=== PATIENT | female | born 1975 | race Caucasian/White ===

== ENCOUNTER 2017-01-06 17:22 | Emergency (ER) | payer BC, MEDICAID ==
[~2017-01-06 17:22] MED LIST: traMADol 50 MG Tab PO ONE
[2017-01-06 17:33] VITALS: BP 147/74
[2017-01-06] MEDS ORDERED: Alum Hydrox/Mag Hydrox/Simeth 30 ML, Lidocaine 2% 15 ML PO ONE ×2 (17:37)
[2017-01-06 17:56] LABS: CHLORIDE,CL 104 mEq/L (98-106); SODIUM,NA 141 mEq/L (136-145)
[2017-01-06] MEDS ORDERED: Morphine 2 MG/ML Syringe IVPUSH ONE (18:00)
--- NOTE | 2017-01-06 18:17 | EDM.PDOC ---
ED HPI GI/ABDOMINAL - General Chief Complaint: Abdominal Pain Stated Complaint: ABD PAIN Time Seen by Provider: 01/06/17 17:50 Source of Information: Reports: Patient, Old records History Limitations: Reports: No limitations - History of Present Illness INITIAL COMMENTS - FREE TEXT/NARRATIVE: Patient to ER with history of Ulcerative Colitis including recent flare up 4 weeks ago in which patient was seen by Media Production Support Manager and had flexible sigmoidoscopy and confirmation of diagnosis. She states she was placed on Asacol 800 mg every 8 hours and scheduled for a Colonoscopy later this month. Patient states reoccurance of bloody diarrhea, abdominal cramping past 24 hours despite use of Asacol. She states she has had a stressful day with the of a pet and states pain and diarrhea has been exacerbated with 6 loose bloody stools today. She rates abdominal pain on scale of 8 with cramping and some feelings of bloating in the lower abdominal region. She states she was able to eat ham sandwich this day without vomiting affirms some nausea. She is brought to ER by in for evaluation and treatment. Symptom Onset Date: 01/05/17 Symptom Onset Time: 16:00 Timing/Duration: Reports: Day(s): (2), Waxing/waning Location: other (Diffuse pain and cramping lower pelvic region and epigastric region) Quality: Reports: burning, cramping, fullness Severity: severe Improves with: Reports: other (Drawing legs up) Worsens with: Reports: lying down Context: Denies: sick contact, bad/questionable food, out of country travel, recent surgery, lifting Associated Symptoms (-Female): Reports: diarrhea, bloody stools, nausea/ vomiting Treatments MOTH EXTERMINATOR: Reports: Other medication(s) (Asacol-) - Related Data Allergies/ADRs: Allergies Allergy/AdvReac Type Severity Reaction Status Date / Time ceftriaxone sodium Allergy Severe Difficulty Verified 01/06/17 17:51 [From Rocephin] Breathing milnacipran HCl Allergy Intermediate Hallucinati Verified 01/06/17 17:51 [From Savella] ons ondansetron HCl [From Zofran] Allergy Mild Hives Verified 01/06/17 17:51 acetaminophen Allergy Vomiting Verified 01/06/17 17:51 [From Excedrin Sinus Headache] calcium carbonate [From DHEA] Allergy Anxiety Verified 01/06/17 17:51 calcium phosphate,dibasic Allergy Anxiety Verified 01/06/17 17:51 [From DHEA] metoclopramide HCl Allergy Anxiety Verified 01/06/17 17:51 [From Reglan] phenylephrine HCl Allergy Vomiting Verified 01/06/17 17:51 [From Excedrin Sinus Headache] prasterone (DHEA) [From DHEA] Allergy Anxiety Verified 01/06/17 17:51 prednisone Allergy Other Verified 01/06/17 17:51 prochlorperazine Allergy Anxiety Verified 10/27/16 15:08 [From Compazine] prochlorperazine edisylate Allergy Anxiety Verified 10/27/16 15:08 [From Compazine] prochlorperazine maleate Allergy Anxiety Verified 10/27/16 15:08 [From Compazine] Home Meds: Home Meds ALPRAZolam [Xanax] 0.5 mg PO QID PRN 10/02/13 [History] Omeprazole [Prilosec] 20 mg PO BID 10/02/13 [History] levETIRAcetam [Keppra] 750 mg PO BID 10/02/13 [History] Escitalopram [Lexapro] 30 mg PO DAILY 07/11/14 [History] Estradiol 1 mg PO DAILY 08/18/15 [History] Linaclotide [Linzess] 290 mcg PO DAILY 11/24/15 [History] Acetaminophen [Tylenol] 650 mg PO ASDIRECTED PRN 02/28/16 [History] SUMAtriptan [Imitrex] 1 tab PO ASDIRECTED PRN 04/23/16 [History] ARIPiprazole [Abilify] 5 mg PO DAILY 07/29/16 [History] Zolpidem Tartrate [Ambien] 5 mg PO BEDTIME PRN 10/15/16 [History] Nabumetone [Relafen] 750 mg PO BID 10/27/16 [History] lamoTRIgine [Lamotrigine] 25 mg PO BID 10/27/16 [History] Dicyclomine [Bentyl] 1 cap PO DAILY 01/06/17 [History] Ranitidine HCl [Acid Control] 1 tab PO DAILY 01/06/17 [History] Past Medical History HEENT History: Reports: Allergic rhinitis Cardiovascular History: Reports: None Respiratory History: Reports: Asthma Gastrointestinal History: Reports: Chronic constipation, Inflammatory bowel disease, Other (see below) Other Gastrointestinal History: COLITIS Genitourinary History: Reports: Renal calculus 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 Denies: Suicidal ideation Endocrine/Metabolic History: Reports: Obesity/BMI 30+ Hematologic History: Reports: None Immunologic History: Reports: None Oncologic (Cancer) History: Reports: None Dermatologic History: Reports: None - Past Surgical History Other HEENT Surgeries/Procedures: Sinus surgery, several Musculoskeletal Surgical History: Reports: Joint replacement Social & Family History - Family History Family Medical History: Noncontributory Cardiac: Reports: Hypertension Respiratory: Reports: None GI: Reports: Inflammatory bowel disease, Irritable bowel syndrome : Reports: None OBGYN: Reports: None Musculoskeletal: Reports: Fibromyalgia Neurological: Reports: None Psychiatric: Reports: Depression Endocrine/Metabolic: Reports: Obesity/MBI 30+ Hematologic: Reports: None Immunologic: Reports: None Dermatologic: Reports: None Oncologic: Reports: None - Tobacco Use Smoking Status *Q: Former Smoker Tobacco Use Within Last Twelve Months: No Years of Tobacco use: 21 Packs/Tins Daily: 1 Used Tobacco, but Quit: Yes Month Tobacco Last Used: 4 years ago Second Hand Smoke Exposure: No - Caffeine Use Caffeine Use: Reports: Soda - Alcohol Use Alcohol Use History: No Days Per Week of Alcohol Use: 0 Alcohol Use in Last Twelve Months: No - Recreational Drug Use Recreational Drug Use: No - Living Situation & Occupation Living situation: Reports: , with family Occupation: unemployed ED ROS GENERAL - Review of Systems Review Of Systems: See Below Constitutional: Reports: chills, weakness, fatigue, decreased appetite HEENT: Reports: No symptoms Respiratory: Reports: No Symptoms Cardiovascular: Reports: No symptoms Endocrine: Reports: no symptoms GI/Abdominal: Reports: Abdominal pain, Bloody stool, Diarrhea, Decreased appetite, Distension, Hematochezia, Mucous in stool, Nausea, Vomiting : Reports: incontinence Musculoskeletal: Reports: no symptoms Skin: Reports: no symptoms Neurological: Reports: No Symptoms Psychiatric: Reports: Anxiety, Depression, Mood lability, Other (Sadnees grief from loss of pet) Hematologic/Lymphatic: Reports: no symptoms Immunologic: Reports: no symptoms ED EXAM, GI/ABD - Physical Exam Exam: See Below Exam Limited By: No limitations General Appearance: alert, WD/WN, anxious, mild distress Eyes: bilateral: normal appearance, EOMI Ears: normal external exam, normal canal, hearing grossly normal, normal TMs Nose: normal inspection, normal mucosa, no blood Throat/Mouth: Normal inspection, Normal lips, Normal teeth, Normal gums, Normal oropharynx, Normal voice, No airway compromise. No: Inflammation Head: atraumatic, normocephalic Neck: normal inspection, supple, non-tender, full range of motion Respiratory/Chest: no respiratory distress, lungs clear, normal breath sounds, no accessory muscle use, chest non-tender Cardiovascular: normal peripheral pulses, regular rate, rhythm, no edema, no gallop, no JVD GI/Abdominal: normal bowel sounds, soft, no organomegaly, no distention, no mass , tenderness, distention, guarding. No: rebound, rigidity, hepatomegaly, splenomegaly, hernia, mass (Female) Exam: Deferred Rectal (Female) Exam: Deferred Back Exam: normal inspection, full range of motion Extremities: normal inspection, normal range of motion, non-tender, no pedal edema Neurological: alert, oriented, normal cognition, normal gait, normal reflexes, no motor/sensory deficits ED ABDOMINAL/GI PROCEDURES - Additional/Other Procedure(s) Procedure(s) (Free Text): CT Scan with contrast radiology reports no abnormality noted with exception of fatty liver. Negative for bowel wall thickening or other abnormality. Course - Vital Signs Last Recorded V/S: Last Vital Signs Temp 36.9 C 01/06/17 17:30 Pulse 105 H 01/06/17 17:30 Resp 18 01/06/17 17:30 BP 147/74 H 01/06/17 17:30 Pulse Ox 99 01/06/17 17:30 - Orders/Labs/Meds Orders: Active Orders 24 hr Category Date Time Status Abdomen Pelvis w Cont [CT] Stat Exams 01/06/17 18:23 Taken STOOL CULTURE [MREF] Stat Lab 01/06/17 17:36 Uncollected Lactated Ringers [Ringers, Lactated] 1,000 ml Med 01/06/17 19:30 Active IV ASDIRECTED Medication Orders Lactated Ringer's (Ringers, Lactated) 1,000 mls @ 150 mls/hr IV ASDIRECTED ANDREEA Labs: Laboratory Tests 01/06/17 01/06/17 Range/Units 17:36 17:36 WBC 13.9 H (5.0-10.0) 10^3/uL RBC 3.98 L (4.00-5.50) 10^6/uL Hgb 12.2 (12.0-16.0) g/dL Hct 36.3 L (37.0-47.0) % MCV 91.2 (82.0-94.0) fL MCH 30.7 (27.0-32.0) pg MCHC 33.6 (33.0-38.0) g/dL RDW Coeff of David 12.2 (11.0-15.0) % Plt Count 231 (150-400) 10^3/uL Neut % (Auto) 66.9 (35-85) % Lymph % (Auto) 20.6 (10-55) % [place] % (Auto) 8.7 (0-16) % Eos % (Auto) 3.1 (0-5) % Baso % (Auto) 0.7 (0-3) % Neut # (Auto) 9.31 H (1.80-7.00) 10^3/uL Lymph # (Auto) 2.87 (1.00-4.80) 10^3/uL [place] # (Auto) 1.21 H (0.00-0.80) 10^3/uL Eos # (Auto) 0.43 (0.00-0.45) 10^3/uL Baso # (Auto) 0.10 10^3/uL Sodium 141 (136-145) mEq/L Potassium 3.7 (3.5-5.0) mEq/L Chloride 104 (98-106) mEq/L Carbon Dioxide 26 (21-32) mmol/L BUN 9 (7-18) mg/dL Creatinine 0.7 (0.6-1.0) mg/dL Est Cr Clr Drug Dosing 88.37 mL/min Estimated GFR (MDRD) > 60 (>=60) mL/min Glucose 125 H (75-99) mg/dL Calcium 8.7 (8.4-10.1) mg/dL Total Bilirubin 0.1 (0.0-1.0) mg/dL AST 48 H (15-37) U/L ALT 66 (12-78) U/L Alkaline Phosphatase 96 (46-116) U/L C-Reactive Protein < 0.2 L (0.2-0.8) mg/dL Total Protein 6.8 (6.4-8.2) g/dL Albumin 3.4 (3.4-5.0) g/dL Meds: Medications Generic Name Dose Route Start Last Admin Trade Name Freq PRN Reason Stop Dose Admin Lactated Ringer's 1,000 mls @ 150 mls/hr 01/06/17 19:30 Ringers, Lactated IV ASDIRECTED ANDREEA Discontinued Medications Generic Name Dose Route Start Last Admin Trade Name Freq PRN Reason Stop Dose Admin Al Hydroxide/Mg Hydroxide 30 0 ml 01/06/17 17:37 01/06/17 17:46 ml/ Lidocaine HCl 15 ml PO 01/06/17 17:38 45 ml ONETIME ONE Administration Hyoscyamine 0.125 mg 01/06/17 18:40 01/06/17 19:03 Hyomax-Sl SL 01/06/17 18:41 0.125 mg ONETIME ONE Administration Morphine Sulfate 2 mg 01/06/17 18:00 01/06/17 18:08 Morphine IVPUSH 01/06/17 18:01 2 mg ONETIME ONE Administration Departure - Departure Time of Disposition: 19:33 Disposition: Home, Self-Care 01 Condition: fair Clinical Impression: Gastroenteritis, Abdominal pain, Diarrhea, Chronic abdominal pain Instructions: Abdominal Pain, Adult, [id number], Pain Medicine Instructions, [id number] Forms: ED Department Discharge Additional Instructions: Clear Liquids and advance diet as tolerated. Fluids and hydration. Obtain stool for culture and return to laboratory. Tramadol 50 mg po every 8 ours prn pain. F/U with PCP or Gastroenterolgy as scheduled. MLP Sign Off - Signature Requirements MLP Sign Off: No - Problem List Review Problem List Initiated/Reviewed/Updated: Yes - My Orders Last 24 Hours: My Active Orders 01/06/17 17:36 STOOL CULTURE [MREF] Stat 01/06/17 18:23 Abdomen Pelvis w Cont [CT] Stat 01/06/17 19:30 Lactated Ringers [Ringers, Lactated] 1,000 ml IV ASDIRECTED - Assessment/Plan Last 24 Hours: My Active Orders 01/06/17 17:36 STOOL CULTURE [MREF] Stat 01/06/17 18:23 Abdomen Pelvis w Cont [CT] Stat 01/06/17 19:30 Lactated Ringers [Ringers, Lactated] 1,000 ml IV ASDIRECTED Assessment:: Gastroenteritis History of Ulcerative Colitis Bloody Stools Abdominal Pain Plan: Discharge to home. Clear liquids and advance diet as tolerated. Tramadol 50 mg every 8 hours prn pain. Continue Asacol 800 mg TID at home per gastroenterology. F/U with PCP and Gastroenterolgy as instructed and scheduled.
[2017-01-06] MEDS ORDERED: Hyoscyamine 0.125 MG Tab.SL SL ONE (18:40)
[2017-01-06] MEDS ORDERED: Take Home: traMADol 50 MG, 4 Tab Pack PO ONE (19:30)
[2017-01-06] MEDS ORDERED: Lactated Ringers 1,000 ML IV SCH (19:30)
== END 2017-01-06 19:58 | disposition home or self-care (01) ==
LOC: CC.ED 17:22
DX: K52.9 Noninfective gastroenteritis and colitis, unspecified (principal); J45.909 Unspecified asthma, uncomplicated; F41.9 Anxiety disorder, unspecified; F32.9 Major depressive disorder, single episode, unspecified; E66.9 Obesity, unspecified; Z87.891 Personal history of nicotine dependence; Z88.1 Allergy status to other antibiotic agents; Z88.8 Allergy status to other drugs, medicaments and biological substances; Z79.899 Other long term (current) drug therapy
CPT/HCPCS: 36415; 74177; 80053; 85025; 86140; 96374; 99284; A9270; J2270; Q9967

== ENCOUNTER 2017-01-11 18:54 | Emergency (ER) | payer BC, MEDICAID ==
[2017-01-11] MEDS ORDERED: Promethazine 25 MG/ML SDV IM STA (19:07)
[2017-01-11] MEDS ORDERED: HYDROmorphone 1 MG/ML Syringe IM ONE (19:07)
--- NOTE | 2017-01-11 19:12 | EDM.PDOC ---
ED HPI HEADACHE COMPLAINT - General Chief Complaint: Headache Stated Complaint: migraine Time Seen by Provider: 01/11/17 18:58 Source of Information: Reports: Patient History Limitations: Reports: No limitations - History of Present Illness INITIAL COMMENTS - FREE TEXT/NARRATIVE: This patient is a well known patient to ER. Patient reports migraine. She reports right buddhism headache with photophobia and phonophobia. Typical of her headache. Tried Imitrex today, did work this morning, but not again this afternoon. She reports nausea. No unialteral weaknesses or neuro deficits. Stable. Symptom Onset Date: 01/11/17 Timing/Duration: Reports: day(s): (1) Location: Reports: temporal, right Quality: Reports: pounding Severity: Reports: moderate Associated Symptoms: Reports: photophobia - Related Data Allergies/ADRs: Allergies Allergy/AdvReac Type Severity Reaction Status Date / Time ceftriaxone sodium Allergy Severe Difficulty Verified 01/12/17 14:42 [From Rocephin] Breathing milnacipran HCl Allergy Intermediate Hallucinati Verified 01/12/17 14:42 [From Savella] ons ondansetron HCl [From Zofran] Allergy Mild Hives Verified 01/12/17 14:42 acetaminophen Allergy Vomiting Verified 01/12/17 14:42 [From Excedrin Sinus Headache] calcium carbonate [From DHEA] Allergy Anxiety Verified 01/12/17 14:42 calcium phosphate,dibasic Allergy Anxiety Verified 01/12/17 14:42 [From DHEA] metoclopramide HCl Allergy Anxiety Verified 01/12/17 14:42 [From Reglan] phenylephrine HCl Allergy Vomiting Verified 01/12/17 14:42 [From Excedrin Sinus Headache] prasterone (DHEA) [From DHEA] Allergy Anxiety Verified 01/12/17 14:42 prednisone Allergy Other Verified 01/12/17 14:42 prochlorperazine Allergy Anxiety Verified 01/12/17 14:42 [From Compazine] prochlorperazine edisylate Allergy Anxiety Verified 01/12/17 14:42 [From Compazine] prochlorperazine maleate Allergy Anxiety Verified 01/12/17 14:42 [From Compazine] Home Meds: Home Meds ALPRAZolam [Xanax] 0.5 mg PO QID PRN 10/02/13 [History] Omeprazole [Prilosec] 20 mg PO BID 10/02/13 [History] levETIRAcetam [Keppra] 750 mg PO BID 10/02/13 [History] Escitalopram [Lexapro] 30 mg PO DAILY 07/11/14 [History] Estradiol 1 mg PO DAILY 08/18/15 [History] Linaclotide [Linzess] 290 mcg PO DAILY 11/24/15 [History] Acetaminophen [Tylenol] 650 mg PO ASDIRECTED PRN 02/28/16 [History] SUMAtriptan [Imitrex] 1 tab PO ASDIRECTED PRN 04/23/16 [History] ARIPiprazole [Abilify] 5 mg PO DAILY 07/29/16 [History] Zolpidem Tartrate [Ambien] 5 mg PO BEDTIME PRN 10/15/16 [History] Nabumetone [Relafen] 750 mg PO BID 10/27/16 [History] lamoTRIgine [Lamotrigine] 25 mg PO BID 10/27/16 [History] Dicyclomine [Bentyl] 1 cap PO DAILY 01/06/17 [History] Ranitidine HCl [Acid Control] 1 tab PO DAILY 01/06/17 [History] Past Medical History HEENT History: Reports: Allergic rhinitis Cardiovascular History: Reports: None Respiratory History: Reports: Asthma Gastrointestinal History: Reports: Chronic constipation, Inflammatory bowel disease, Other (see below) Other Gastrointestinal History: COLITIS Genitourinary History: Reports: Renal calculus 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 Denies: Suicidal ideation Endocrine/Metabolic History: Reports: Obesity/BMI 30+ Hematologic History: Reports: None Immunologic History: Reports: None Oncologic (Cancer) History: Reports: None Dermatologic History: Reports: None - Past Surgical History Other HEENT Surgeries/Procedures: Sinus surgery, several Musculoskeletal Surgical History: Reports: Joint replacement Social & Family History - Family History Family Medical History: Noncontributory Cardiac: Reports: Hypertension Respiratory: Reports: None GI: Reports: Inflammatory bowel disease, Irritable bowel syndrome : Reports: None OBGYN: Reports: None Musculoskeletal: Reports: Fibromyalgia Neurological: Reports: None Psychiatric: Reports: Depression Endocrine/Metabolic: Reports: Obesity/MBI 30+ Hematologic: Reports: None Immunologic: Reports: None Dermatologic: Reports: None Oncologic: Reports: None - Tobacco Use Smoking Status *Q: Former Smoker Years of Tobacco use: 21 Packs/Tins Daily: 1 Used Tobacco, but Quit: Yes Month Tobacco Last Used: 4 years ago Second Hand Smoke Exposure: No - Caffeine Use Caffeine Use: Reports: Soda - Alcohol Use Days Per Week of Alcohol Use: 0 - Recreational Drug Use Recreational Drug Use: No - Living Situation & Occupation Living situation: Reports: , with family Occupation: unemployed ED ROS GENERAL - Review of Systems Review Of Systems: See Below Constitutional: Reports: no symptoms HEENT: Reports: Other (photophobia and phonophobia. ) Respiratory: Reports: No Symptoms Cardiovascular: Reports: No symptoms Endocrine: Reports: no symptoms GI/Abdominal: Reports: Nausea : Reports: no symptoms Musculoskeletal: Reports: no symptoms Skin: Reports: no symptoms Neurological: Reports: Headache Psychiatric: Reports: No symptoms Hematologic/Lymphatic: Reports: no symptoms Immunologic: Reports: no symptoms - Physical Exam Exam: See Below Exam Limited By: No limitations General Appearance: alert, WD/WN, no apparent distress Eye Exam: bilateral eye: EOMI, normal inspection, PERRL Ears: normal external exam, hearing grossly normal, normal TMs Nose: normal inspection, normal mucosa, no blood Throat/Mouth: Normal inspection, Normal lips, Normal teeth, Normal gums, Normal oropharynx, Normal voice, No airway compromise Head Exam: atraumatic, normocephalic Neck: normal inspection, supple, non-tender, full range of motion Respiratory/Chest: no respiratory distress, lungs clear, normal breath sounds, no accessory muscle use Cardiovascular: normal peripheral pulses, regular rate, rhythm, no edema, no gallop, no JVD, no murmur, no rub GI/Abdominal: normal bowel sounds, soft, non tender Neuro Exam (Abbreviated): alert, oriented, CN II-XII intact, normal gait, no motor/sensory deficits Back Exam: normal inspection, full range of motion Extremities: normal inspection, normal range of motion, non-tender, no pedal edema, normal capillary refill Psychiatric: normal affect, normal mood Skin Exam: Warm, Dry, Intact, Normal color, No rash Course - Vital Signs Last Recorded V/S: Last Vital Signs Temp 98.6 F 01/11/17 18:55 Pulse 96 01/11/17 18:55 Resp 18 01/11/17 18:55 BP 130/50 L 01/11/17 19:20 Pulse Ox 96 01/11/17 18:55 - Orders/Labs/Meds Meds: Medications Discontinued Medications Generic Name Dose Route Start Last Admin Trade Name Tanmay PRN Reason Stop Dose Admin Hydromorphone HCl 1 mg 01/11/17 19:07 01/11/17 19:17 Dilaudid IM 01/11/17 19:08 1 mg ONETIME ONE Administration Promethazine HCl 25 mg 01/11/17 19:07 01/11/17 19:16 Phenergan IM 01/11/17 19:08 25 mg NOW STA Administration Departure - Departure Time of Disposition: 19:11 Disposition: Home, Self-Care 01 Condition: good Clinical Impression: Migraine Instructions: General Headache Without Cause, [id number] Referrals: Provider,Unknown [Ordering Only Provider] - Forms: ED Department Discharge Additional Instructions: Followup with your primary care provider Return to the ER for worsening of condition or any emergent concerns Increase fluids Go home to a quite, dark, cool room and rest - Assessment/Plan Plan: PLEASE SEE RN NOTE FOR PFSH.
[2017-01-11 19:20] VITALS: BP 130/50
== END 2017-01-11 19:24 | disposition home or self-care (01) ==
LOC: CC.ED 18:54
DX: G43.909 Migraine, unspecified, not intractable, without status migrainosus (principal); J45.909 Unspecified asthma, uncomplicated; M06.9 Rheumatoid arthritis, unspecified; F41.9 Anxiety disorder, unspecified; F32.9 Major depressive disorder, single episode, unspecified; E66.9 Obesity, unspecified; Z79.899 Other long term (current) drug therapy; Z87.891 Personal history of nicotine dependence; Z88.6 Allergy status to analgesic agent; Z88.1 Allergy status to other antibiotic agents
CPT/HCPCS: 96372; 99282; J1170; J2550

== ENCOUNTER 2017-01-12 14:40 | Emergency (ER) | payer SELFPAY ==
[2017-01-12 14:49] VITALS: BP 148/107
[2017-01-12] MEDS ORDERED: Ketorolac 60 MG/2 ML SDV IM ONE (14:53)
[2017-01-12] MEDS ORDERED: diphenhydrAMINE 50 MG/ML SDV IM ONE (14:54)
[2017-01-12] MEDS ORDERED: Promethazine 25 MG/ML SDV IM STA (14:54)
--- NOTE | 2017-01-12 14:56 | EDM.PDOC ---
ED HPI HEADACHE COMPLAINT - General Chief Complaint: Headache Stated Complaint: HEADACHE, RASH Time Seen by Provider: 01/12/17 14:40 Source of Information: Reports: Patient History Limitations: Reports: No limitations - History of Present Illness INITIAL COMMENTS - FREE TEXT/NARRATIVE: This patient is very well known to the ER. Patient was seen yesterday for same complaint of migraine. She reports after leaving here yesterday she was pain free. She reports being pain free until about 2 hours ago. Patient reports her migraine returned with photphobia and phonophobia. Denies vomiting. Reports nausea. Stable. Timing/Duration: Reports: hour(s): (2) Location: Reports: generalized Severity: Reports: mild Associated Symptoms: Reports: photophobia. Denies: hyperacusis, dizziness - Related Data Allergies/ADRs: Allergies Allergy/AdvReac Type Severity Reaction Status Date / Time ceftriaxone sodium Allergy Severe Difficulty Verified 01/12/17 14:42 [From Rocephin] Breathing milnacipran HCl Allergy Intermediate Hallucinati Verified 01/12/17 14:42 [From Savella] ons ondansetron HCl [From Zofran] Allergy Mild Hives Verified 01/12/17 14:42 acetaminophen Allergy Vomiting Verified 01/12/17 14:42 [From Excedrin Sinus Headache] calcium carbonate [From DHEA] Allergy Anxiety Verified 01/12/17 14:42 calcium phosphate,dibasic Allergy Anxiety Verified 01/12/17 14:42 [From DHEA] metoclopramide HCl Allergy Anxiety Verified 01/12/17 14:42 [From Reglan] phenylephrine HCl Allergy Vomiting Verified 01/12/17 14:42 [From Excedrin Sinus Headache] prasterone (DHEA) [From DHEA] Allergy Anxiety Verified 01/12/17 14:42 prednisone Allergy Other Verified 01/12/17 14:42 prochlorperazine Allergy Anxiety Verified 01/12/17 14:42 [From Compazine] prochlorperazine edisylate Allergy Anxiety Verified 01/12/17 14:42 [From Compazine] prochlorperazine maleate Allergy Anxiety Verified 01/12/17 14:42 [From Compazine] Home Meds: Home Meds ALPRAZolam [Xanax] 0.5 mg PO QID PRN 10/02/13 [History] Omeprazole [Prilosec] 20 mg PO BID 10/02/13 [History] levETIRAcetam [Keppra] 750 mg PO BID 10/02/13 [History] Escitalopram [Lexapro] 30 mg PO DAILY 07/11/14 [History] Estradiol 1 mg PO DAILY 08/18/15 [History] Linaclotide [Linzess] 290 mcg PO DAILY 11/24/15 [History] Acetaminophen [Tylenol] 650 mg PO ASDIRECTED PRN 02/28/16 [History] SUMAtriptan [Imitrex] 1 tab PO ASDIRECTED PRN 04/23/16 [History] ARIPiprazole [Abilify] 5 mg PO DAILY 07/29/16 [History] Zolpidem Tartrate [Ambien] 5 mg PO BEDTIME PRN 10/15/16 [History] Nabumetone [Relafen] 750 mg PO BID 10/27/16 [History] lamoTRIgine [Lamotrigine] 25 mg PO BID 10/27/16 [History] Dicyclomine [Bentyl] 1 cap PO DAILY 01/06/17 [History] Ranitidine HCl [Acid Control] 1 tab PO DAILY 01/06/17 [History] Past Medical History HEENT History: Reports: Allergic rhinitis Cardiovascular History: Reports: None Respiratory History: Reports: Asthma Gastrointestinal History: Reports: Chronic constipation, Inflammatory bowel disease, Other (see below) Other Gastrointestinal History: COLITIS Genitourinary History: Reports: Renal calculus 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 Denies: Suicidal ideation Endocrine/Metabolic History: Reports: Obesity/BMI 30+ Hematologic History: Reports: None Immunologic History: Reports: None Oncologic (Cancer) History: Reports: None Dermatologic History: Reports: None - Past Surgical History Other HEENT Surgeries/Procedures: Sinus surgery, several Musculoskeletal Surgical History: Reports: Joint replacement Social & Family History - Family History Family Medical History: Noncontributory Cardiac: Reports: Hypertension Respiratory: Reports: None GI: Reports: Inflammatory bowel disease, Irritable bowel syndrome : Reports: None OBGYN: Reports: None Musculoskeletal: Reports: Fibromyalgia Neurological: Reports: None Psychiatric: Reports: Depression Endocrine/Metabolic: Reports: Obesity/MBI 30+ Hematologic: Reports: None Immunologic: Reports: None Dermatologic: Reports: None Oncologic: Reports: None - Tobacco Use Smoking Status *Q: Former Smoker Years of Tobacco use: 20 Packs/Tins Daily: 1 Used Tobacco, but Quit: Yes Month Tobacco Last Used: 4 years ago Second Hand Smoke Exposure: No - Caffeine Use Caffeine Use: Reports: Soda - Alcohol Use Days Per Week of Alcohol Use: 0 - Recreational Drug Use Recreational Drug Use: No - Living Situation & Occupation Living situation: Reports: , with family Occupation: unemployed ED ROS GENERAL - Review of Systems Review Of Systems: See Below Constitutional: Reports: no symptoms HEENT: Reports: Other (photophobia, phonophobia.) Respiratory: Reports: No Symptoms Cardiovascular: Reports: No symptoms Endocrine: Reports: no symptoms GI/Abdominal: Reports: Nausea : Reports: no symptoms Musculoskeletal: Reports: no symptoms Skin: Reports: rash (left posterior auricle.) Neurological: Reports: Headache Psychiatric: Reports: No symptoms Hematologic/Lymphatic: Reports: no symptoms Immunologic: Reports: no symptoms - Physical Exam Exam: See Below Exam Limited By: No limitations General Appearance: alert, WD/WN, no apparent distress Eye Exam: bilateral eye: EOMI, normal inspection, PERRL Ears: normal external exam, normal canal, hearing grossly normal, normal TMs Nose: normal inspection, normal mucosa, no blood Throat/Mouth: Normal inspection, Normal lips, Normal teeth, Normal gums, Normal oropharynx, Normal voice, No airway compromise Head Exam: atraumatic, normocephalic Neck: normal inspection, supple, non-tender, full range of motion Respiratory/Chest: no respiratory distress, lungs clear, normal breath sounds, no accessory muscle use Cardiovascular: normal peripheral pulses, regular rate, rhythm, no edema, no gallop, no JVD, no murmur, no rub GI/Abdominal: soft, non tender Neuro Exam (Abbreviated): alert, oriented, normal cognition, normal gait, no motor/sensory deficits Back Exam: normal inspection, full range of motion Extremities: normal inspection, normal range of motion, non-tender, no pedal edema, normal capillary refill Psychiatric: normal affect, normal mood Skin Exam: Warm, Dry, Intact, Normal color, Rash (contact dermatitis right postaurical region. ) Course - Vital Signs Last Recorded V/S: Last Vital Signs Temp 98.0 F 01/12/17 14:46 Pulse 98 01/12/17 14:46 Resp 16 01/12/17 14:46 BP 148/107 H 01/12/17 14:46 Pulse Ox 94 L 01/12/17 14:46 - Orders/Labs/Meds Meds: Medications Discontinued Medications Generic Name Dose Route Start Last Admin Trade Name Tanmay PRN Reason Stop Dose Admin Diphenhydramine HCl 25 mg 01/12/17 14:54 01/12/17 15:11 Benadryl IM 01/12/17 14:55 25 mg ONETIME ONE Administration Hydromorphone HCl 1 mg 01/12/17 15:04 01/12/17 15:16 Dilaudid IM 01/12/17 15:05 1 mg ONETIME ONE Administration Ketorolac Tromethamine 60 mg 01/12/17 14:53 01/12/17 15:10 Toradol IM 01/12/17 14:54 Not Given ONETIME ONE Promethazine HCl 25 mg 01/12/17 14:54 01/12/17 15:07 Phenergan IM 01/12/17 14:55 25 mg NOW STA Administration Departure - Departure Time of Disposition: 14:55 Disposition: Home, Self-Care 01 Condition: good Clinical Impression: Migraine Referrals: PCP,None [Primary Care Provider] - Forms: ED Department Discharge Additional Instructions: Followup with primary care provider Return to the ER for Emergencies Go home to a quiet, dark, cool room and rest. - Assessment/Plan Plan: PLEASE SEE RN NOTE FOR PFSH.
[2017-01-12] MEDS ORDERED: HYDROmorphone 1 MG/ML Syringe IM ONE (15:04)
== END 2017-01-12 15:20 | disposition home or self-care (01) ==
LOC: CC.ED 14:40
DX: G43.909 Migraine, unspecified, not intractable, without status migrainosus (principal); J45.909 Unspecified asthma, uncomplicated; M06.9 Rheumatoid arthritis, unspecified; Z87.891 Personal history of nicotine dependence; Z88.8 Allergy status to other drugs, medicaments and biological substances; Z79.899 Other long term (current) drug therapy
CPT/HCPCS: 96372; 99283; J1170; J1200; J2550

== ENCOUNTER 2017-01-18 13:48 | Emergency (ER) | payer SELFPAY ==
[2017-01-18 13:58] VITALS: BP 152/90
[2017-01-18] MEDS ORDERED: diphenhydrAMINE 50 MG/ML SDV IM ONE (14:16)
[2017-01-18] MEDS ORDERED: HYDROmorphone 1 MG/ML Syringe IM ONE (14:16)
[2017-01-18] MEDS ORDERED: Ketorolac 60 MG/2 ML SDV IM ONE (14:16)
[2017-01-18] MEDS ORDERED: Promethazine 25 MG/ML SDV IM ONE (14:18)
--- NOTE | 2017-01-18 14:23 | EDM.PDOC ---
ED HPI HEADACHE COMPLAINT - General Chief Complaint: Headache Stated Complaint: headache Time Seen by Provider: 01/18/17 14:07 Source of Information: Reports: Patient History Limitations: Reports: No limitations - History of Present Illness INITIAL COMMENTS - FREE TEXT/NARRATIVE: History and physical: History of present illness: [pt comes to the ER complaining of a migraine headache to her left scientologist. She complains of a history of migraines, usually to her R scientologist. Began last evening at 6 p.m. Improved with Imitrex, but didn't completely resolve. Repeated Imitrex this morning, which did not resolve her symptoms. These symptoms are typical for her when she has a migraine. No new or different symptoms. She denies LOC or fainting. No weakness, chest pain, SOA or dyspnea. She has had some blurred vision with her headache, which is not atypical for her. Has had some mild nausea, but no vomiting. Took 1 tablet of Benadryl this morning. She was in the ER last weekend on both Friday and Friday for migraine TINAJERO. Resolved completely after medications on Friday. She saw her PCP in [place] yesterday and was started on propranolol for mildly elevated BP. She has no other complaints or concerns at this time. ] Review of Systems: As per history of present illness and below otherwise all systems reviewed and negative. Past medical history: As per history of present illness and as reviewed below otherwise noncontributory. Surgical history: As per history of present illness and is reviewed below other cardona noncontributory. Social history: No reported history of drug or alcohol abuse. Family history: As per history of present illness and is reviewed below otherwise noncontributory. Physical exam: HEENT: Atraumatic, normocephalic. PERRLA. EOMI. no nystagmus. mucous membranes moist, throat clear, neck supple, no lymphadenopathy. trachea midline. Lungs: Clear to auscultation, breath sounds equal bilaterally no wheezing crackles or rales. Heart: S1-S2, regular rate and rhythm. Abdomen: Soft, nondistended, nontender. Negative for costovertebral tenderness. Pelvis: Stable, nontender. Genitourinary: Deferred. Rectal: Deferred. Extremities: atraumatic, no cyanosis or edema to feet or lower legs. Neuro: Awake, alert, oriented. head field nurse case manager strength is strong bilaterally.no unilateral weakness. Cranial nerves II through XII unremarkable. Motor and sensory unremarkable throughout. Exam nonfocal. Therapeutics: [Dilaudid 1 mg IM, Benadryl 25 mg IM, Phenergan 25 mg IM] Impression: [Migraine headache] Plan: [Patient refuses Toradol injection today. will slate picker from the ER today so Dilaudid Benadryl and Phenergan given IM. She is to rest in a cool dark room for the rest of today. Strict return precautions are given to patient. She is in agreement with today's plan. ] Definitive disposition and diagnosis is appropriate pending reevaluation and review of above. - Related Data Allergies/ADRs: Allergies Allergy/AdvReac Type Severity Reaction Status Date / Time ceftriaxone sodium Allergy Severe Difficulty Verified 01/18/17 13:57 [From Rocephin] Breathing milnacipran HCl Allergy Intermediate Hallucinati Verified 01/18/17 13:57 [From Savella] ons ondansetron HCl [From Zofran] Allergy Mild Hives Verified 01/18/17 13:57 acetaminophen Allergy Vomiting Verified 01/18/17 13:57 [From Excedrin Sinus Headache] calcium carbonate [From DHEA] Allergy Anxiety Verified 01/18/17 13:57 calcium phosphate,dibasic Allergy Anxiety Verified 01/18/17 13:57 [From DHEA] metoclopramide HCl Allergy Anxiety Verified 01/18/17 13:57 [From Reglan] phenylephrine HCl Allergy Vomiting Verified 01/18/17 13:57 [From Excedrin Sinus Headache] prasterone (DHEA) [From DHEA] Allergy Anxiety Verified 01/18/17 13:57 prednisone Allergy Other Verified 01/18/17 13:57 prochlorperazine Allergy Anxiety Verified 01/18/17 13:57 [From Compazine] prochlorperazine edisylate Allergy Anxiety Verified 01/18/17 13:57 [From Compazine] prochlorperazine maleate Allergy Anxiety Verified 01/18/17 13:57 [From Compazine] Home Meds: Home Meds ALPRAZolam [Xanax] 0.5 mg PO QID PRN 10/02/13 [History] Omeprazole [Prilosec] 20 mg PO BID 10/02/13 [History] levETIRAcetam [Keppra] 750 mg PO BID 10/02/13 [History] Escitalopram [Lexapro] 30 mg PO DAILY 07/11/14 [History] Estradiol 1 mg PO DAILY 08/18/15 [History] Linaclotide [Linzess] 290 mcg PO DAILY 11/24/15 [History] Acetaminophen [Tylenol] 650 mg PO ASDIRECTED PRN 02/28/16 [History] SUMAtriptan [Imitrex] 1 tab PO ASDIRECTED PRN 04/23/16 [History] ARIPiprazole [Abilify] 5 mg PO DAILY 07/29/16 [History] Zolpidem Tartrate [Ambien] 5 mg PO BEDTIME PRN 10/15/16 [History] Nabumetone [Relafen] 750 mg PO BID 10/27/16 [History] lamoTRIgine [Lamotrigine] 25 mg PO BID 10/27/16 [History] Dicyclomine [Bentyl] 1 cap PO DAILY 01/06/17 [History] Ranitidine HCl [Acid Control] 1 tab PO DAILY 01/06/17 [History] Azithromycin [Zithromax] 250 mg PO DAILY 01/18/17 [History] Propranolol [Inderal] 20 mg PO DAILY 01/18/17 [History] Past Medical History HEENT History: Reports: Allergic rhinitis Cardiovascular History: Reports: None Respiratory History: Reports: Asthma Gastrointestinal History: Reports: Chronic constipation, Inflammatory bowel disease, Other (see below) Other Gastrointestinal History: COLITIS Genitourinary History: Reports: Renal calculus 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: 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 Musculoskeletal History: Reports: Fibromyalgia, RA Neurological History: Reports: Migraines, Seizure Psychiatric History: Reports: Anxiety, Depression Endocrine/Metabolic History: Reports: Obesity/BMI 30+ Hematologic History: Reports: None Immunologic History: Reports: None Oncologic (Cancer) History: Reports: None Dermatologic History: Reports: None - Infectious Disease History Infectious Disease History: Reports: MRSA - Past Surgical History Other HEENT Surgeries/Procedures: Sinus surgery, several Musculoskeletal Surgical History: Reports: Joint replacement Social & Family History - Family History Family Medical History: Noncontributory Cardiac: Reports: Hypertension Respiratory: Reports: None GI: Reports: Inflammatory bowel disease, Irritable bowel syndrome : Reports: None OBGYN: Reports: None Musculoskeletal: Reports: Fibromyalgia Neurological: Reports: None Psychiatric: Reports: Depression Endocrine/Metabolic: Reports: Obesity/MBI 30+ Hematologic: Reports: None Immunologic: Reports: None Dermatologic: Reports: None Oncologic: Reports: None - Tobacco Use Smoking Status *Q: Former Smoker Years of Tobacco use: 20 Packs/Tins Daily: 1 Used Tobacco, but Quit: Yes Month Tobacco Last Used: 02/2012 Second Hand Smoke Exposure: No - Caffeine Use Caffeine Use: Reports: Soda - Alcohol Use Days Per Week of Alcohol Use: 0 - Recreational Drug Use Recreational Drug Use: No - Living Situation & Occupation Living situation: Reports: , with family Occupation: unemployed ED ROS GENERAL - Review of Systems Review Of Systems: ROS reveals no pertinent complaints other than HPI. - Physical Exam Exam: See Below Course - Vital Signs Last Recorded V/S: Last Vital Signs Temp 98.4 F 01/18/17 13:49 Pulse 85 01/18/17 13:49 Resp 16 01/18/17 13:49 BP 152/90 H 01/18/17 13:49 Pulse Ox 96 01/18/17 13:49 - Orders/Labs/Meds Meds: Medications Discontinued Medications Generic Name Dose Route Start Last Admin Trade Name Tanmay PRN Reason Stop Dose Admin Diphenhydramine HCl 25 mg 01/18/17 14:16 01/18/17 14:30 Benadryl IM 01/18/17 14:17 25 mg ONETIME ONE Administration Hydromorphone HCl 1 mg 01/18/17 14:16 01/18/17 14:32 Dilaudid IM 01/18/17 14:17 1 mg ONETIME ONE Administration Ketorolac Tromethamine 60 mg 01/18/17 14:16 01/18/17 14:34 Toradol IM 01/18/17 14:17 Not Given ONETIME ONE Promethazine HCl 25 mg 01/18/17 14:18 01/18/17 14:30 Phenergan IM 01/18/17 14:19 25 mg ONETIME ONE Administration Departure - Departure Time of Disposition: 14:45 Disposition: Home, Self-Care 01 Condition: good Clinical Impression: Migraine Qualifiers: Migraine type: unspecified Status migrainosus presence: without status migrainosus Intractability: not intractable Qualified Code(s): G43.909 - Migraine, unspecified, not intractable, without status migrainosus Referrals: Provider,Unknown [Primary Care Provider] - Forms: ED Department Discharge Additional Instructions: My general discharge The following information is given to patients seen in the emergency department who are being discharged home. This information is to outline your options for follow-up care and provides all patient seen in our emergency department with a follow-up referral. The need for follow-up, as well as the timing and circumstances, are variable depending upon the specifics of each emergency department visit. If you don't have a primary care physician on staff, we will provide you with a referral. We always advise to contact your personal physician following an emergency department visit to inform them of the circumstances of the visit and for follow-up with them and/or the need for any referrals to a consulting specialist. The emergency department will also refer you to a specialist when appropriate. This referral assures that you have the opportunity for follow-up care with a specialist. All of these measures are taken in an effort to provide you with optimal care, which includes your follow-up. Under all circumstances we always encourage you to contact your private physician who remains a resource for coordinating your care. When calling for follow-up care, please make the office aware that this follow-up is from your recent emergency room visit. If for any reason you are refused follow-up please contact the [facility] emergency department at and ask to speak to the emergency department nurse. Followup with your primary care provider within the next week for reevaluation. Continue all other home medications as prescribed. Return to ER as needed as discussed.
== END 2017-01-18 14:40 | disposition home or self-care (01) ==
LOC: CC.ED 13:48
DX: G43.909 Migraine, unspecified, not intractable, without status migrainosus (principal); J45.909 Unspecified asthma, uncomplicated; M06.9 Rheumatoid arthritis, unspecified; F41.9 Anxiety disorder, unspecified; F32.9 Major depressive disorder, single episode, unspecified; E66.9 Obesity, unspecified; Z87.891 Personal history of nicotine dependence; Z79.899 Other long term (current) drug therapy; Z88.8 Allergy status to other drugs, medicaments and biological substances; Z88.1 Allergy status to other antibiotic agents
CPT/HCPCS: 96372; 99282; J1170; J1200; J2550

== ENCOUNTER 2017-01-25 14:26 | Emergency (ER) | payer SELFPAY ==
[2017-01-25] MEDS ORDERED: diphenhydrAMINE 50 MG/ML SDV IM ONE (14:35)
[2017-01-25] MEDS ORDERED: Ketorolac 60 MG/2 ML SDV IM ONE (14:35)
[2017-01-25] MEDS ORDERED: Promethazine 25 MG/ML SDV IM STA (14:36)
--- NOTE | 2017-01-25 14:39 | EDM.PDOC ---
ED HPI HEADACHE COMPLAINT - General Chief Complaint: Headache Stated Complaint: "I have a migraine" Time Seen by Provider: 01/25/17 14:35 Source of Information: Reports: Patient History Limitations: Reports: No limitations - History of Present Illness INITIAL COMMENTS - FREE TEXT/NARRATIVE: This patient is well known to department. She comes very frequently for migraine headaches. She reports this feels exactly like her migraines. She reports it started at 1am and her Imitrex has not worked. Reports right temporal. She reports photophobia and phonophobia. Denies v, d, f, nec pain, cp , soa. Stable. Symptom Onset Date: 01/25/17 Symptom Onset Time: 01:00 Timing/Duration: Reports: hour(s): (13) Location: Reports: temporal, right Quality: Reports: pounding Severity: Reports: mild, similar to past headaches. Denies: worst headache ever Associated Symptoms: Reports: photophobia, other (phonophobia) - Related Data Allergies/ADRs: Allergies Allergy/AdvReac Type Severity Reaction Status Date / Time ceftriaxone sodium Allergy Severe Difficulty Verified 01/18/17 13:57 [From Rocephin] Breathing milnacipran HCl Allergy Intermediate Hallucinati Verified 01/18/17 13:57 [From Savella] ons ondansetron HCl [From Zofran] Allergy Mild Hives Verified 01/18/17 13:57 acetaminophen Allergy Vomiting Verified 01/18/17 13:57 [From Excedrin Sinus Headache] calcium carbonate [From DHEA] Allergy Anxiety Verified 01/18/17 13:57 calcium phosphate,dibasic Allergy Anxiety Verified 01/18/17 13:57 [From DHEA] metoclopramide HCl Allergy Anxiety Verified 01/18/17 13:57 [From Reglan] phenylephrine HCl Allergy Vomiting Verified 01/18/17 13:57 [From Excedrin Sinus Headache] prasterone (DHEA) [From DHEA] Allergy Anxiety Verified 01/18/17 13:57 prednisone Allergy Other Verified 01/18/17 13:57 prochlorperazine Allergy Anxiety Verified 01/18/17 13:57 [From Compazine] prochlorperazine edisylate Allergy Anxiety Verified 01/18/17 13:57 [From Compazine] prochlorperazine maleate Allergy Anxiety Verified 01/18/17 13:57 [From Compazine] Home Meds: Home Meds ALPRAZolam [Xanax] 0.5 mg PO QID PRN 10/02/13 [History] Omeprazole [Prilosec] 20 mg PO BID 10/02/13 [History] levETIRAcetam [Keppra] 750 mg PO BID 10/02/13 [History] Escitalopram [Lexapro] 30 mg PO DAILY 07/11/14 [History] Estradiol 1 mg PO DAILY 08/18/15 [History] Linaclotide [Linzess] 290 mcg PO DAILY 11/24/15 [History] Acetaminophen [Tylenol] 650 mg PO ASDIRECTED PRN 02/28/16 [History] SUMAtriptan [Imitrex] 1 tab PO ASDIRECTED PRN 04/23/16 [History] ARIPiprazole [Abilify] 5 mg PO DAILY 07/29/16 [History] Zolpidem Tartrate [Ambien] 5 mg PO BEDTIME PRN 10/15/16 [History] Nabumetone [Relafen] 750 mg PO BID 10/27/16 [History] lamoTRIgine [Lamotrigine] 25 mg PO BID 10/27/16 [History] Dicyclomine [Bentyl] 1 cap PO DAILY 01/06/17 [History] Ranitidine HCl [Acid Control] 1 tab PO DAILY 01/06/17 [History] Azithromycin [Zithromax] 250 mg PO DAILY 01/18/17 [History] Propranolol [Inderal] 20 mg PO DAILY 01/18/17 [History] Past Medical History HEENT History: Reports: Allergic rhinitis Cardiovascular History: Reports: None Respiratory History: Reports: Asthma Gastrointestinal History: Reports: Chronic constipation, Inflammatory bowel disease, Other (see below) Other Gastrointestinal History: COLITIS Genitourinary History: Reports: Renal calculus 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 Musculoskeletal History: Reports: Fibromyalgia, RA Neurological History: Reports: Migraines, Seizure Psychiatric History: Reports: Anxiety, Depression Endocrine/Metabolic History: Reports: Obesity/BMI 30+ Hematologic History: Reports: None Immunologic History: Reports: None Oncologic (Cancer) History: Reports: None Dermatologic History: Reports: None - Infectious Disease History Infectious Disease History: Reports: MRSA - Past Surgical History Other HEENT Surgeries/Procedures: Sinus surgery, several Musculoskeletal Surgical History: Reports: Joint replacement Social & Family History - Family History Family Medical History: Noncontributory Cardiac: Reports: Hypertension Respiratory: Reports: None GI: Reports: Inflammatory bowel disease, Irritable bowel syndrome : Reports: None OBGYN: Reports: None Musculoskeletal: Reports: Fibromyalgia Neurological: Reports: None Psychiatric: Reports: Depression Endocrine/Metabolic: Reports: Obesity/MBI 30+ Hematologic: Reports: None Immunologic: Reports: None Dermatologic: Reports: None Oncologic: Reports: None - Tobacco Use Smoking Status *Q: Former Smoker Years of Tobacco use: 20 Packs/Tins Daily: 1 Used Tobacco, but Quit: Yes Month Tobacco Last Used: 02/2012 Second Hand Smoke Exposure: No - Caffeine Use Caffeine Use: Reports: Soda - Alcohol Use Days Per Week of Alcohol Use: 0 - Recreational Drug Use Recreational Drug Use: No - Living Situation & Occupation Living situation: Reports: , with family Occupation: unemployed ED ROS GENERAL - Review of Systems Review Of Systems: See Below Constitutional: Reports: no symptoms HEENT: Reports: Other (photphobia, phonophobia. ) Respiratory: Reports: No Symptoms Cardiovascular: Reports: No symptoms Endocrine: Reports: no symptoms GI/Abdominal: Reports: Nausea : Reports: no symptoms Musculoskeletal: Reports: no symptoms Skin: Reports: no symptoms Neurological: Reports: Headache. Denies: Seizure, Difficulty Walking, Weakness , Gait Disturbance Psychiatric: Reports: No symptoms Hematologic/Lymphatic: Reports: no symptoms Immunologic: Reports: no symptoms - Physical Exam Exam: See Below Exam Limited By: No limitations General Appearance: alert, WD/WN, no apparent distress Eye Exam: bilateral eye: EOMI, normal inspection, PERRL Ears: normal external exam, normal canal, hearing grossly normal, normal TMs Nose: normal inspection, normal mucosa, no blood Throat/Mouth: Normal inspection, Normal lips, Normal teeth, Normal gums, Normal oropharynx, Normal voice, No airway compromise Head Exam: atraumatic, normocephalic Neck: normal inspection, supple, non-tender, full range of motion Respiratory/Chest: no respiratory distress, lungs clear, normal breath sounds, no accessory muscle use Cardiovascular: normal peripheral pulses, regular rate, rhythm, no edema, no gallop, no JVD, no murmur, no rub Neuro Exam (Abbreviated): alert, oriented, CN II-XII intact, normal cognition, normal gait, normal reflexes, no motor/sensory deficits Back Exam: normal inspection Extremities: normal inspection, normal range of motion, non-tender, no pedal edema, normal capillary refill Psychiatric: normal affect, normal mood Skin Exam: Warm, Dry, Intact, Normal color, No rash Course - Orders/Labs/Meds Meds: Medications Discontinued Medications Generic Name Dose Route Start Last Admin Trade Name Tanmay PRN Reason Stop Dose Admin Diphenhydramine HCl 25 mg 01/25/17 14:35 Benadryl IM 01/25/17 14:36 ONETIME ONE Ketorolac Tromethamine 60 mg 01/25/17 14:35 Toradol IM 01/25/17 14:36 ONETIME ONE Promethazine HCl 25 mg 01/25/17 14:36 Phenergan IM 01/25/17 14:37 NOW STA Departure - Departure Time of Disposition: 14:37 Disposition: Home, Self-Care 01 Condition: good Clinical Impression: Migraine Qualifiers: Migraine type: unspecified Status migrainosus presence: without status migrainosus Intractability: intractable Qualified Code(s): G43.919 - Migraine, unspecified, intractable, without status migrainosus Instructions: Recurrent Migraine Headache, [id number] Forms: ED Department Discharge Additional Instructions: Followup with your primary care provider Return to the ER for emergencies Increase fluids Go home and rest - Assessment/Plan Plan: PLEASE SEE RN NOTE FOR PFSH.
[2017-01-25] MEDS ORDERED: HYDROmorphone 1 MG/ML Syringe IM ONE (15:02)
[2017-01-25 16:47] VITALS: BP 132/77
== END 2017-01-25 15:15 | disposition home or self-care (01) ==
LOC: CC.ED 14:26
DX: G43.919 Migraine, unspecified, intractable, without status migrainosus (principal); J45.909 Unspecified asthma, uncomplicated; M06.9 Rheumatoid arthritis, unspecified; F41.9 Anxiety disorder, unspecified; F32.9 Major depressive disorder, single episode, unspecified; E66.9 Obesity, unspecified; Z68.30 Body mass index [BMI] 30.0-30.9, adult; Z79.899 Other long term (current) drug therapy; Z88.8 Allergy status to other drugs, medicaments and biological substances; Z98.890 Other specified postprocedural states; Z87.891 Personal history of nicotine dependence; Z88.1 Allergy status to other antibiotic agents
CPT/HCPCS: 96372; 99283; J1170; J1200; J2550

== ENCOUNTER 2017-01-30 13:10 | Emergency (ER) | payer SELFPAY ==
[2017-01-30 13:15] VITALS: BP 107/86
[2017-01-30] MEDS ORDERED: diphenhydrAMINE 50 MG/ML SDV IVPUSH ONE (13:32)
[2017-01-30] MEDS ORDERED: Promethazine 25 MG/ML SDV IM ONE (13:35)
--- NOTE | 2017-01-30 13:41 | EDM.PDOC ---
ED HPI HEADACHE COMPLAINT - General Chief Complaint: Headache Stated Complaint: MIGRAINE/NAUSEA Time Seen by Provider: 01/30/17 13:30 Source of Information: Reports: Patient History Limitations: Reports: No limitations - History of Present Illness INITIAL COMMENTS - FREE TEXT/NARRATIVE: States that she woke with a headache and it is now a migraine. Does see PCP in [place] and Dr. Pitts neurologist. Is photophobic with it. Typical migraine Symptom Onset Date: 01/30/17 Location: Reports: generalized Quality: Reports: pounding Severity: Reports: similar to past headaches Associated Symptoms: Reports: photophobia - Related Data Allergies/ADRs: Allergies Allergy/AdvReac Type Severity Reaction Status Date / Time ceftriaxone sodium Allergy Severe Difficulty Verified 01/30/17 13:15 [From Rocephin] Breathing milnacipran HCl Allergy Intermediate Hallucinati Verified 01/30/17 13:15 [From Savella] ons ondansetron HCl [From Zofran] Allergy Mild Hives Verified 01/30/17 13:15 acetaminophen Allergy Vomiting Verified 01/30/17 13:15 [From Excedrin Sinus Headache] calcium carbonate [From DHEA] Allergy Anxiety Verified 01/30/17 13:15 calcium phosphate,dibasic Allergy Anxiety Verified 01/30/17 13:15 [From DHEA] metoclopramide HCl Allergy Anxiety Verified 01/30/17 13:15 [From Reglan] phenylephrine HCl Allergy Vomiting Verified 01/30/17 13:15 [From Excedrin Sinus Headache] prasterone (DHEA) [From DHEA] Allergy Anxiety Verified 01/30/17 13:15 prednisone Allergy Other Verified 01/30/17 13:15 prochlorperazine Allergy Anxiety Verified 01/30/17 13:15 [From Compazine] prochlorperazine edisylate Allergy Anxiety Verified 01/30/17 13:15 [From Compazine] prochlorperazine maleate Allergy Anxiety Verified 01/30/17 13:15 [From Compazine] ketorolac [From Toradol] AdvReac Bleeding Verified 01/30/17 13:18 NSAIDS (Non-Steroidal AdvReac Bleeding Verified 01/30/17 13:18 Anti-Inflamma Home Meds: Home Meds ALPRAZolam [Xanax] 0.5 mg PO QID PRN 12/28/13 [History] Omeprazole [Prilosec] 20 mg PO BID 10/02/13 [History] levETIRAcetam [Keppra] 750 mg PO BID 10/02/13 [History] Escitalopram [Lexapro] 30 mg PO DAILY 07/11/14 [History] Estradiol 1 mg PO DAILY 08/18/15 [History] Linaclotide [Linzess] 290 mcg PO DAILY 11/24/15 [History] Acetaminophen [Tylenol] 650 mg PO ASDIRECTED PRN 02/28/16 [History] SUMAtriptan [Imitrex] 1 tab PO ASDIRECTED PRN 04/23/16 [History] ARIPiprazole [Abilify] 5 mg PO DAILY 07/29/16 [History] Zolpidem Tartrate [Ambien] 5 mg PO BEDTIME PRN 10/15/16 [History] Nabumetone [Relafen] 750 mg PO BID 10/27/16 [History] lamoTRIgine [Lamotrigine] 25 mg PO BID 10/27/16 [History] Dicyclomine [Bentyl] 1 cap PO DAILY 01/06/17 [History] Ranitidine HCl [Acid Control] 1 tab PO DAILY 01/06/17 [History] Azithromycin [Zithromax] 250 mg PO DAILY 01/18/17 [History] Propranolol [Inderal] 20 mg PO DAILY 01/18/17 [History] Propranolol HCl [Propranolol] 10 mg PO DAILY 01/30/17 [History] Past Medical History HEENT History: Reports: Allergic rhinitis Cardiovascular History: Reports: None Respiratory History: Reports: Asthma Gastrointestinal History: Reports: Chronic constipation, Inflammatory bowel disease, Other (see below) Other Gastrointestinal History: COLITIS Genitourinary History: Reports: Renal calculus [employer]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 Musculoskeletal History: Reports: Fibromyalgia, RA Neurological History: Reports: Migraines, Seizure Psychiatric History: Reports: Anxiety, Depression Endocrine/Metabolic History: Reports: Obesity/BMI 30+ Hematologic History: Reports: None Immunologic History: Reports: None Oncologic (Cancer) History: Reports: None Dermatologic History: Reports: None - Infectious Disease History Infectious Disease History: Reports: MRSA - Past Surgical History Other HEENT Surgeries/Procedures: Sinus surgery, several Musculoskeletal Surgical History: Reports: Joint replacement Social & Family History - Family History Family Medical History: Noncontributory Cardiac: Reports: Hypertension Respiratory: Reports: None GI: Reports: Inflammatory bowel disease, Irritable bowel syndrome : Reports: None OBGYN: Reports: None Musculoskeletal: Reports: Fibromyalgia Neurological: Reports: None Psychiatric: Reports: Depression Endocrine/Metabolic: Reports: Obesity/MBI 30+ Hematologic: Reports: None Immunologic: Reports: None Dermatologic: Reports: None Oncologic: Reports: None - Tobacco Use Smoking Status *Q: Former Smoker Years of Tobacco use: 20 Packs/Tins Daily: 1 Used Tobacco, but Quit: Yes Month Tobacco Last Used: 5 YEARS AGO Second Hand Smoke Exposure: No - Caffeine Use Caffeine Use: Reports: Soda - Alcohol Use Days Per Week of Alcohol Use: 0 - Recreational Drug Use Recreational Drug Use: No - Living Situation & Occupation Living situation: Reports: , with family Occupation: unemployed ED ROS GENERAL - Review of Systems Review Of Systems: See Below Constitutional: Denies: fever HEENT: Reports: No symptoms Respiratory: Denies: Cough Cardiovascular: Denies: No symptoms GI/Abdominal: Denies: No symptoms Neurological: Reports: Headache - Physical Exam Exam: See Below Exam Limited By: No limitations General Appearance: alert, moderate distress Ears: normal external exam, normal canal Throat/Mouth: Normal inspection, No airway compromise Head Exam: atraumatic, normocephalic Neck: normal inspection, supple, non-tender Respiratory/Chest: no respiratory distress, lungs clear, normal breath sounds Cardiovascular: regular rate, rhythm GI/Abdominal: normal bowel sounds, soft Neuro Exam (Abbreviated): alert, oriented, normal cognition Course - Vital Signs Last Recorded V/S: Last Vital Signs Temp 98.7 F 01/30/17 13:13 Pulse 115 H 01/30/17 13:13 Resp 16 01/30/17 13:13 BP 107/86 01/30/17 13:13 Pulse Ox 95 01/30/17 13:13 - Orders/Labs/Meds Orders: Active Orders 24 hr Category Date Time Status Promethazine [Phenergan] Med 01/30/17 13:35 Once 25 mg IM NOW ONE diphenhydrAMINE [Benadryl] Med 01/30/17 13:32 Once 25 mg IVPUSH ONETIME ONE Departure - Departure Time of Disposition: 13:40 Disposition: Home, Self-Care 01 Clinical Impression: Migraine Qualifiers: Migraine type: without aura Status migrainosus presence: without status migrainosus Intractability: not intractable Qualified Code(s): G43.009 - Migraine without aura, not intractable, without status migrainosus Forms: ED Department Discharge Additional Instructions: Follow up with primary care provider and neurologist if migraines persist - Problem List & Annotations (1) Migraine SNOMED Code(s): 00210144 Code(s): G43.909 - MIGRAINE, UNSP, NOT INTRACTABLE, WITHOUT STATUS MIGRAINOSUS Status: Acute Qualifiers: Migraine type: without aura Status migrainosus presence: without status migrainosus Intractability: not intractable Qualified Code(s): G43.009 - Migraine without aura, not intractable, without status migrainosus - Problem List Review Problem List Initiated/Reviewed/Updated: Yes - My Orders Last 24 Hours: My Active Orders 01/30/17 13:32 diphenhydrAMINE [Benadryl] 25 mg IVPUSH ONETIME ONE 01/30/17 13:35 Promethazine [Phenergan] 25 mg IM NOW ONE - Assessment/Plan Last 24 Hours: My Active Orders 01/30/17 13:32 diphenhydrAMINE [Benadryl] 25 mg IVPUSH ONETIME ONE 01/30/17 13:35 Promethazine [Phenergan] 25 mg IM NOW ONE
== END 2017-01-30 13:50 | disposition home or self-care (01) ==
LOC: CC.ED 13:10
DX: G43.009 Migraine without aura, not intractable, without status migrainosus (principal); J45.909 Unspecified asthma, uncomplicated; M06.9 Rheumatoid arthritis, unspecified; F41.9 Anxiety disorder, unspecified; F32.9 Major depressive disorder, single episode, unspecified; E66.9 Obesity, unspecified; Z87.891 Personal history of nicotine dependence; Z79.899 Other long term (current) drug therapy; Z88.5 Allergy status to narcotic agent; Z88.8 Allergy status to other drugs, medicaments and biological substances; Z88.1 Allergy status to other antibiotic agents
CPT/HCPCS: 96372; 99282; J1200; J2550

== ENCOUNTER 2017-02-06 13:45 | Emergency (ER) | payer SELFPAY ==
[2017-02-06 13:55] VITALS: BP 118/77
[2017-02-06] MEDS ORDERED: Promethazine 25 MG/ML SDV IM STA (14:21)
[2017-02-06] MEDS ORDERED: methylPREDNISolone Sodium Succinate 125 MG/2 ML SDV IM STA (14:22)
--- NOTE | 2017-02-06 14:22 | EDM.PDOC ---
ED HPI HEADACHE COMPLAINT - General Chief Complaint: Headache Stated Complaint: MIGRAINE Time Seen by Provider: 02/06/17 14:00 Source of Information: Reports: Patient History Limitations: Reports: No limitations - History of Present Illness INITIAL COMMENTS - FREE TEXT/NARRATIVE: Iain is a 42 yo female who presents to the ER with complaints of a migraine headache. She states it is a typical migraine for her and started to notice it coming on last night. Admits it woke her around 6:00 am and she tried taking her Imitrex and again at 8:00 am. She states she didn't get much relief. Admits it is a typical migraine for her and does have some photophobia with it. She is also requesting some nystatin powder for a yeast infection in the roll of her abdomen. Admits she was just recently on antibiotics and always gets a yeast infection. Requesting diflucan as well. Timing/Duration: Reports: constant/continuous Severity: Reports: similar to past headaches. Denies: worst headache ever Associated Symptoms: Reports: aura, photophobia - Related Data Allergies/ADRs: Allergies Allergy/AdvReac Type Severity Reaction Status Date / Time ceftriaxone sodium Allergy Severe Difficulty Verified 02/06/17 14:10 [From Rocephin] Breathing milnacipran HCl Allergy Intermediate Hallucinati Verified 02/06/17 14:10 [From Savella] ons ondansetron HCl [From Zofran] Allergy Mild Hives Verified 02/06/17 14:10 acetaminophen Allergy Vomiting Verified 02/06/17 14:10 [From Excedrin Sinus Headache] calcium carbonate [From DHEA] Allergy Anxiety Verified 02/06/17 14:10 calcium phosphate,dibasic Allergy Anxiety Verified 02/06/17 14:10 [From DHEA] metoclopramide HCl Allergy Anxiety Verified 02/06/17 14:10 [From Reglan] phenylephrine HCl Allergy Vomiting Verified 02/06/17 14:10 [From Excedrin Sinus Headache] prasterone (DHEA) [From DHEA] Allergy Anxiety Verified 02/06/17 14:10 prednisone Allergy Other Verified 02/06/17 14:10 prochlorperazine Allergy Anxiety Verified 02/06/17 14:10 [From Compazine] prochlorperazine edisylate Allergy Anxiety Verified 02/06/17 14:10 [From Compazine] prochlorperazine maleate Allergy Anxiety Verified 02/06/17 14:10 [From Compazine] ketorolac [From Toradol] AdvReac Bleeding Verified 02/06/17 14:10 NSAIDS (Non-Steroidal AdvReac Bleeding Verified 02/06/17 14:10 Anti-Inflamma Home Meds: Home Meds ALPRAZolam [Xanax] 0.5 mg PO QID PRN 10/02/13 [History] Omeprazole [Prilosec] 20 mg PO BID 10/02/13 [History] levETIRAcetam [Keppra] 750 mg PO BID 10/02/13 [History] Escitalopram [Lexapro] 30 mg PO DAILY 07/11/14 [History] Estradiol 1 mg PO DAILY 08/18/15 [History] Linaclotide [Linzess] 290 mcg PO DAILY 11/24/15 [History] Acetaminophen [Tylenol] 650 mg PO ASDIRECTED PRN 02/28/16 [History] SUMAtriptan [Imitrex] 1 tab PO ASDIRECTED PRN 04/23/16 [History] ARIPiprazole [Abilify] 5 mg PO DAILY 07/29/16 [History] Zolpidem Tartrate [Ambien] 5 mg PO BEDTIME PRN 10/15/16 [History] Nabumetone [Relafen] 750 mg PO BID 10/27/16 [History] lamoTRIgine [Lamotrigine] 25 mg PO BID 10/27/16 [History] Dicyclomine [Bentyl] 1 cap PO DAILY 01/06/17 [History] Ranitidine HCl [Acid Control] 1 tab PO DAILY 01/06/17 [History] Azithromycin [Zithromax] 250 mg PO DAILY 01/18/17 [History] Propranolol [Inderal] 20 mg PO DAILY 01/18/17 [History] Propranolol HCl [Propranolol] 10 mg PO DAILY 01/30/17 [History] Fluconazole [Diflucan] 100 mg PO DAILY #3 tablet 02/06/17 [Rx] Nystatin 1 gm TP BID #60 powder 02/06/17 [Rx] Past Medical History HEENT History: Reports: Allergic rhinitis Cardiovascular History: Reports: None Respiratory History: Reports: Asthma Gastrointestinal History: Reports: Chronic constipation, Inflammatory bowel disease, Other (see below) Other Gastrointestinal History: COLITIS Genitourinary History: Reports: Renal calculus 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 Musculoskeletal History: Reports: Fibromyalgia, RA Neurological History: Reports: Migraines, Seizure Psychiatric History: Reports: Anxiety, Depression Endocrine/Metabolic History: Reports: Obesity/BMI 30+ Hematologic History: Reports: None Immunologic History: Reports: None Oncologic (Cancer) History: Reports: None Dermatologic History: Reports: None - Infectious Disease History Infectious Disease History: Reports: MRSA - Past Surgical History Other HEENT Surgeries/Procedures: Sinus surgery, several Musculoskeletal Surgical History: Reports: Joint replacement Social & Family History - Family History Family Medical History: Noncontributory Cardiac: Reports: Hypertension Respiratory: Reports: None GI: Reports: Inflammatory bowel disease, Irritable bowel syndrome : Reports: None OBGYN: Reports: None Musculoskeletal: Reports: Fibromyalgia Neurological: Reports: None Psychiatric: Reports: Depression Endocrine/Metabolic: Reports: Obesity/MBI 30+ Hematologic: Reports: None Immunologic: Reports: None Dermatologic: Reports: None Oncologic: Reports: None - Tobacco Use Smoking Status *Q: Former Smoker Years of Tobacco use: 20 Packs/Tins Daily: 1 Used Tobacco, but Quit: Yes Month Tobacco Last Used: 5 YEARS AGO Second Hand Smoke Exposure: No - Caffeine Use Caffeine Use: Reports: Soda - Alcohol Use Days Per Week of Alcohol Use: 0 - Recreational Drug Use Recreational Drug Use: No - Living Situation & Occupation Living situation: Reports: , with family Occupation: unemployed ED ROS GENERAL - Review of Systems Review Of Systems: See Below Neurological: Reports: Headache. Denies: Numbness, Paresthesia, Pre-Existing Deficit, Tingling, Difficulty Walking, Weakness Psychiatric: Reports: No symptoms - Physical Exam Exam: See Below Exam Limited By: No limitations General Appearance: alert, mild distress Eye Exam: bilateral eye: EOMI, PERRL Ears: normal external exam, normal canal, hearing grossly normal, normal TMs Nose: normal inspection, no blood Throat/Mouth: Normal inspection, Normal lips Head Exam: atraumatic, normocephalic Neck: normal inspection, supple, non-tender Respiratory/Chest: no respiratory distress, lungs clear, normal breath sounds, no accessory muscle use Cardiovascular: regular rate, rhythm, no murmur GI/Abdominal: normal bowel sounds, soft, non tender, no organomegaly, no distention Neuro Exam (Abbreviated): alert, oriented, CN II-XII intact, normal cognition, no motor/sensory deficits Extremities: normal inspection, normal capillary refill Psychiatric: normal affect, normal mood Skin Exam: Warm, Dry, Intact, Normal color, No rash Course - Vital Signs Last Recorded V/S: Last Vital Signs Temp 99.0 F 02/06/17 13:52 Pulse 81 02/06/17 13:52 Resp 16 02/06/17 13:52 BP 118/77 02/06/17 13:52 Pulse Ox 94 L 02/06/17 13:52 Departure - Departure Time of Disposition: 14:27 Disposition: Home, Self-Care 01 Condition: good Clinical Impression: Migraine Qualifiers: Migraine type: without aura Status migrainosus presence: without status migrainosus Intractability: not intractable Qualified Code(s): G43.009 - Migraine without aura, not intractable, without status migrainosus Instructions: Recurrent Migraine Headache, [id number] Forms: ED Department Discharge Additional Instructions: 1) Go directly home and rest today 2) Follow up with primary if ongoing, if worsening please return for reevaluation. 3) Push fluids today 4) Refrain from computer, phone, TV, etc.. until headache subsides. - Problem List & Annotations (1) Migraine SNOMED Code(s): 48203769 Code(s): G43.909 - MIGRAINE, UNSP, NOT INTRACTABLE, WITHOUT STATUS MIGRAINOSUS Status: Acute Qualifiers: Migraine type: without aura Status migrainosus presence: without status migrainosus Intractability: not intractable Qualified Code(s): G43.009 - Migraine without aura, not intractable, without status migrainosus - Problem List Review Problem List Initiated/Reviewed/Updated: Yes
== END 2017-02-06 14:37 | disposition home or self-care (01) ==
LOC: CC.ED 13:45
DX: G43.009 Migraine without aura, not intractable, without status migrainosus (principal); J45.909 Unspecified asthma, uncomplicated; F41.9 Anxiety disorder, unspecified; F32.9 Major depressive disorder, single episode, unspecified; E66.9 Obesity, unspecified; Z88.8 Allergy status to other drugs, medicaments and biological substances; Z79.899 Other long term (current) drug therapy; Z87.891 Personal history of nicotine dependence
CPT/HCPCS: 96372; 99282; J2550; J2930

== ENCOUNTER 2017-02-09 15:28 | Emergency (ER) | payer SELFPAY ==
[2017-02-09] MEDS ORDERED: Ondansetron 4 MG Tab.DIS ONE (15:29)
[2017-02-09] MEDS ORDERED: Promethazine 25 MG/ML SDV ONE (15:29)
[2017-02-09 15:30] VITALS: BP 147/92
[2017-02-09] MEDS ORDERED: HYDROmorphone 1 MG/ML Syringe ONE (15:30)
[2017-02-09] MEDS ORDERED: Promethazine 25 MG/ML SDV IM STA (15:40)
[2017-02-09] MEDS ORDERED: HYDROmorphone 1 MG/ML Syringe IM ONE (15:40)
[2017-02-09] MEDS ORDERED: Ondansetron 4 MG Tab.DIS PO ONE (15:40)
--- NOTE | 2017-02-09 15:44 | EDM.PDOC ---
ED HPI GENERAL MEDICAL PROBLEM - General Chief Complaint: General Stated Complaint: N/V MIGRAINE S/P FALL Time Seen by Provider: 02/09/17 15:42 Source of Information: Reports: Patient History Limitations: Reports: No limitations - History of Present Illness INITIAL COMMENTS - FREE TEXT/NARRATIVE: Patient is a well known to department 42 year old female. Patent reports she has a a typical migraine for 1 day. She reports she tried her Imitrex and Benadryl at home. Patient reports her typical right temporal, photophobia, phonophobia, nausea. Patient reports not any more severe than her typical. Patient reports she tripped and fell yesterday into a door and hit her left arm and her left knee. She is ambulatory without difficulty and has no moises tenderness. Pulses +2, cap refill <2 sec, sensory/motor function intact. Neurovascular intact. I asked patient if she felt safe at home and she reports she does. Onset Date: 02/08/17 Duration: Day(s): (1) Location: Reports: head Severity: moderate Improves with: Reports: None Worsens with: Reports: None Associated Symptoms: Reports: nausea/vomiting. Denies: confusion, chest pain, cough, cough w sputum, diaphoresis, fever/chills, headaches, loss of appetite, malaise, rash, seizure, shortness of breath, syncope, weakness Headache Pain Score (Numeric/FACES): 9 - Related Data Allergies Allergy/AdvReac Type Severity Reaction Status Date / Time ceftriaxone sodium Allergy Severe Difficulty Verified 02/09/17 15:25 [From Rocephin] Breathing milnacipran HCl Allergy Intermediate Hallucinati Verified 02/09/17 15:25 [From Savella] ons ondansetron HCl [From Zofran] Allergy Mild Hives Verified 02/09/17 15:25 acetaminophen Allergy Vomiting Verified 02/09/17 15:25 [From Excedrin Sinus Headache] calcium carbonate [From DHEA] Allergy Anxiety Verified 02/09/17 15:25 calcium phosphate,dibasic Allergy Anxiety Verified 02/09/17 15:25 [From DHEA] metoclopramide HCl Allergy Anxiety Verified 02/09/17 15:25 [From Reglan] phenylephrine HCl Allergy Vomiting Verified 02/09/17 15:25 [From Excedrin Sinus Headache] prasterone (DHEA) [From DHEA] Allergy Anxiety Verified 02/09/17 15:25 prednisone Allergy Other Verified 02/09/17 15:25 prochlorperazine Allergy Anxiety Verified 02/09/17 15:25 [From Compazine] prochlorperazine edisylate Allergy Anxiety Verified 02/09/17 15:25 [From Compazine] prochlorperazine maleate Allergy Anxiety Verified 02/09/17 15:25 [From Compazine] ketorolac [From Toradol] AdvReac Bleeding Verified 02/09/17 15:25 NSAIDS (Non-Steroidal AdvReac Bleeding Verified 02/09/17 15:25 Anti-Inflamma Home Meds: Home Meds ALPRAZolam [Xanax] 0.5 mg PO QID PRN 10/02/13 [History] Omeprazole [Prilosec] 20 mg PO BID 10/02/13 [History] levETIRAcetam [Keppra] 750 mg PO BID 10/02/13 [History] Escitalopram [Lexapro] 30 mg PO DAILY 07/11/14 [History] Estradiol 1 mg PO DAILY 08/18/15 [History] Linaclotide [Linzess] 290 mcg PO DAILY 11/24/15 [History] Acetaminophen [Tylenol] 650 mg PO ASDIRECTED PRN 02/28/16 [History] SUMAtriptan [Imitrex] 1 tab PO ASDIRECTED PRN 04/23/16 [History] ARIPiprazole [Abilify] 5 mg PO DAILY 07/29/16 [History] Zolpidem Tartrate [Ambien] 5 mg PO BEDTIME PRN 10/15/16 [History] Nabumetone [Relafen] 750 mg PO BID 10/27/16 [History] lamoTRIgine [Lamotrigine] 25 mg PO BID 10/27/16 [History] Dicyclomine [Bentyl] 1 cap PO DAILY 01/06/17 [History] Ranitidine HCl [Acid Control] 1 tab PO DAILY 01/06/17 [History] Azithromycin [Zithromax] 250 mg PO DAILY 01/18/17 [History] Propranolol [Inderal] 20 mg PO DAILY 01/18/17 [History] Propranolol HCl [Propranolol] 10 mg PO DAILY 01/30/17 [History] Fluconazole [Diflucan] 100 mg PO DAILY #3 tablet 02/06/17 [Rx] Nystatin 1 gm TP BID #60 powder 02/06/17 [Rx] Past Medical History HEENT History: Reports: Allergic rhinitis Cardiovascular History: Reports: None Respiratory History: Reports: Asthma Gastrointestinal History: Reports: Chronic constipation, Inflammatory bowel disease, Other (see below) Other Gastrointestinal History: COLITIS Genitourinary History: Reports: Renal calculus [employer]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 PHYSICAL History: Reports: 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 Musculoskeletal History: Reports: Fibromyalgia, RA Neurological History: Reports: Migraines, Seizure Psychiatric History: Reports: Anxiety, Depression Endocrine/Metabolic History: Reports: Obesity/BMI 30+ Hematologic History: Reports: None Immunologic History: Reports: None Oncologic (Cancer) History: Reports: None Dermatologic History: Reports: None - Infectious Disease History Infectious Disease History: Reports: MRSA - Past Surgical History Other HEENT Surgeries/Procedures: Sinus surgery, several Musculoskeletal Surgical History: Reports: Joint replacement Social & Family History - Family History Family Medical History: Noncontributory Cardiac: Reports: Hypertension Respiratory: Reports: None GI: Reports: Inflammatory bowel disease, Irritable bowel syndrome : Reports: None OBGYN: Reports: None Musculoskeletal: Reports: Fibromyalgia Neurological: Reports: None Psychiatric: Reports: Depression Endocrine/Metabolic: Reports: Obesity/MBI 30+ Hematologic: Reports: None Immunologic: Reports: None Dermatologic: Reports: None Oncologic: Reports: None - Tobacco Use Smoking Status *Q: Never Smoker Years of Tobacco use: 20 Packs/Tins Daily: 1 Used Tobacco, but Quit: Yes Month Tobacco Last Used: 5 YEARS AGO Second Hand Smoke Exposure: No - Caffeine Use Caffeine Use: Reports: None - Alcohol Use Days Per Week of Alcohol Use: 0 - Recreational Drug Use Recreational Drug Use: No - Living Situation & Occupation Living situation: Reports: , with family Occupation: unemployed ED ROS GENERAL - Review of Systems Review Of Systems: See Below Constitutional: Reports: no symptoms HEENT: Reports: Other (photophobia/phonophobia) Respiratory: Reports: No Symptoms Cardiovascular: Reports: No symptoms Endocrine: Reports: no symptoms GI/Abdominal: Reports: Nausea : Reports: no symptoms Musculoskeletal: Reports: joint pain (right medial knee. ), other (left upper arm) Skin: Reports: other (bruising left upper arm, right medial knee. ) Neurological: Reports: Headache Psychiatric: Reports: No symptoms Hematologic/Lymphatic: Reports: no symptoms Immunologic: Reports: no symptoms ED EXAM, GENERAL - Physical Exam Exam: See Below Exam Limited By: No limitations General Appearance: alert, WD/WN, no apparent distress, other (sunglasses on, dark in room. ) Eye Exam: bilateral eye: EOMI, normal inspection, PERRL Ears: normal external exam, normal canal, hearing grossly normal, normal TMs Ear Exam: bilateral ear: auricle normal, canal normal, TM normal Nose: normal inspection, normal mucosa, no blood Throat/Mouth: Normal inspection, Normal lips, Normal teeth, Normal gums, Normal oropharynx, Normal voice, No airway compromise Head: atraumatic, normocephalic Neck: normal inspection, supple, non-tender, full range of motion Respiratory/Chest: no respiratory distress, lungs clear, normal breath sounds, no accessory muscle use Cardiovascular: normal peripheral pulses, regular rate, rhythm, no edema, no gallop, no JVD, no murmur, no rub Peripheral Pulses: 2+: radial (L), radial (R), posterior tibial (L), posterior tibial (R) Extremities: normal inspection, normal range of motion, no pedal edema, normal capillary refill, other (soft tissue tenderness right medial knee, no moises tenderness. Left upper arm bruise, mild tenderness, no moises tenderness. ) Neurological: alert, oriented Psychiatric: normal affect, normal mood Skin Exam: Warm, Dry, Intact, No rash, Ecchymosis (right medial knee, left upper forearm. ) Lymphatic: no adenopathy Course - Vital Signs Last Recorded V/S: Last Vital Signs Temp 96.7 F 02/09/17 15:28 Pulse 68 02/09/17 15:28 Resp 16 02/09/17 15:28 BP 147/92 H 02/09/17 15:28 Pulse Ox 98 02/09/17 15:28 - Orders/Labs/Meds Meds: Medications Discontinued Medications Generic Name Dose Route Start Last Admin Trade Name Tanmay PRN Reason Stop Dose Admin Hydromorphone HCl Confirm 02/09/17 15:30 Dilaudid Administered 02/09/17 15:31 Dose 1 mg .ROUTE .STK-MED ONE Hydromorphone HCl 1 mg 02/09/17 15:40 02/09/17 15:42 Dilaudid IM 05/07/17 15:41 1 mg ONETIME ONE Administration Ondansetron HCl Confirm 02/09/17 15:29 Zofran Odt Administered 02/09/17 15:30 Dose 4 mg .ROUTE .STK-MED ONE Ondansetron HCl 4 mg 02/09/17 15:40 02/09/17 15:42 Zofran Odt PO 02/09/17 15:41 4 mg ONETIME ONE Administration Promethazine HCl Confirm 02/09/17 15:29 Phenergan Administered 02/09/17 15:30 Dose 25 mg .ROUTE .STK-MED ONE Promethazine HCl 25 mg 02/09/17 15:40 02/09/17 15:42 Phenergan IM 02/09/17 15:41 25 mg NOW STA Administration Departure - Departure Time of Disposition: 15:43 Disposition: Home, Self-Care 01 Condition: good Clinical Impression: Migraine Qualifiers: Migraine type: unspecified Status migrainosus presence: without status migrainosus Intractability: not intractable Qualified Code(s): G43.909 - Migraine, unspecified, not intractable, without status migrainosus Forms: ED Department Discharge Additional Instructions: Followup with your primary care provider Return to the ER for worsening of condition or any emergent concerns increase fluids Go home to a quiet, dark, cool room and rest
== END 2017-02-09 15:55 | disposition home or self-care (01) ==
LOC: CC.ED 15:28
DX: G43.909 Migraine, unspecified, not intractable, without status migrainosus (principal); J45.909 Unspecified asthma, uncomplicated; F41.9 Anxiety disorder, unspecified; F32.9 Major depressive disorder, single episode, unspecified; M06.9 Rheumatoid arthritis, unspecified; E66.9 Obesity, unspecified; Z68.30 Body mass index [BMI] 30.0-30.9, adult; Z88.8 Allergy status to other drugs, medicaments and biological substances; Z79.899 Other long term (current) drug therapy; Z98.890 Other specified postprocedural states; Z88.1 Allergy status to other antibiotic agents; Z88.6 Allergy status to analgesic agent
CPT/HCPCS: 96372; 99283; A9270; J1170; J2550

== ENCOUNTER 2017-02-11 09:15 | Emergency (ER) | payer SELFPAY ==
[2017-02-11 09:22] VITALS: BP 136/89
[2017-02-11] MEDS ORDERED: Promethazine 25 MG in Sodium Chloride 0.9% 50 ML IV PRN (09:29)
[2017-02-11] MEDS ORDERED: Lactated Ringers 1,000 ML IV SCH (09:30)
--- NOTE | 2017-02-11 09:31 | EDM.PDOC ---
[id number]: STOMACH CRAMPS/N/D/V Time Seen by Provider: 02/11/17 09:26 Source of Information: Reports: Patient History Limitations: Reports: No limitations - History of Present Illness INITIAL COMMENTS - FREE TEXT/NARRATIVE: Patient presents with complaints of abdominal discomfort, nausea and vomiting. States now experiencing diarrhea and cramping. Is worried that it could be her colitis. Has not noted any blood in her stools yet as she has had in the past. Has recently been in to the ER x2 for headaches. Was given Solu Medrol on as well as has been given pain meds. She states she awoke with abdominal discomfort and has had several vomiting episodes since. States unable to take any oral meds as she "vomits them up". No fevers. Onset: today, sudden Duration: Hour(s): Location: Reports: abdomen Quality: Reports: Sharp Severity: moderate Improves with: Reports: Rest Worsens with: Reports: Eating Associated Symptoms: Reports: nausea/vomiting. Denies: chest pain, cough, fever /chills, loss of appetite Treatments COOK FISH EGGS: Reports: Acetaminophen Left Abdominal Pain Score (Numeric/FACES): 9 - Related Data Allergies Allergy/AdvReac Type Severity Reaction Status Date / Time ceftriaxone sodium Allergy Severe Difficulty Verified 02/11/17 09:25 [From Rocephin] Breathing milnacipran HCl Allergy Intermediate Hallucinati Verified 02/11/17 09:25 [From Savella] ons ondansetron HCl [From Zofran] Allergy Mild Hives Verified 02/11/17 09:25 acetaminophen Allergy Vomiting Verified 02/11/17 09:25 [From Excedrin Sinus Headache] calcium carbonate [From DHEA] Allergy Anxiety Verified 02/11/17 09:25 calcium phosphate,dibasic Allergy Anxiety Verified 02/11/17 09:25 [From DHEA] metoclopramide HCl Allergy Anxiety Verified 02/11/17 09:25 [From Reglan] phenylephrine HCl Allergy Vomiting Verified 02/11/17 09:25 [From Excedrin Sinus Headache] prasterone (DHEA) [From DHEA] Allergy Anxiety Verified 02/11/17 09:25 prednisone Allergy Other Verified 02/11/17 09:25 prochlorperazine Allergy Anxiety Verified 02/11/17 09:25 [From Compazine] prochlorperazine edisylate Allergy Anxiety Verified 02/11/17 09:25 [From Compazine] prochlorperazine maleate Allergy Anxiety Verified 02/11/17 09:25 [From Compazine] ketorolac [From Toradol] AdvReac Bleeding Verified 02/11/17 09:25 NSAIDS (Non-Steroidal AdvReac Bleeding Verified 02/11/17 09:25 Anti-Inflamma Home Meds: Home Meds ALPRAZolam [Xanax] 0.5 mg PO QID PRN 10/02/13 [History] Omeprazole [Prilosec] 20 mg PO BID 10/02/13 [History] levETIRAcetam [Keppra] 750 mg PO BID 10/02/13 [History] Escitalopram [Lexapro] 30 mg PO DAILY 07/11/14 [History] Estradiol 1 mg PO DAILY 08/18/15 [History] Linaclotide [Linzess] 290 mcg PO DAILY PRN 11/24/15 [History] SUMAtriptan [Imitrex] 1 tab PO ASDIRECTED PRN 04/23/16 [History] ARIPiprazole [Abilify] 5 mg PO DAILY 07/29/16 [History] Zolpidem Tartrate [Ambien] 5 mg PO BEDTIME PRN 10/15/16 [History] Nabumetone [Relafen] 750 mg PO BID 10/27/16 [History] lamoTRIgine [Lamotrigine] 25 mg PO BID 10/27/16 [History] Ranitidine HCl [Acid Control] 1 tab PO DAILY 01/06/17 [History] Propranolol [Inderal] 20 mg PO DAILY 01/18/17 [History] Mesalamine [Asacol] 800 mg PO TID 02/11/17 [History] Past Medical History HEENT History: Reports: Allergic rhinitis Cardiovascular History: Reports: None Respiratory History: Reports: Asthma Gastrointestinal History: Reports: Chronic constipation, Inflammatory bowel disease, Other (see below) Other Gastrointestinal History: COLITIS Genitourinary History: Reports: Renal calculus [employer] History: Reports: 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 Musculoskeletal History: Reports: Fibromyalgia, RA Neurological History: Reports: Migraines, Seizure Psychiatric History: Reports: Anxiety, Depression Endocrine/Metabolic History: Reports: Obesity/BMI 30+ Hematologic History: Reports: None Immunologic History: Reports: None Oncologic (Cancer) History: Reports: None Dermatologic History: Reports: None - Infectious Disease History Infectious Disease History: Reports: MRSA - Past Surgical History Other HEENT Surgeries/Procedures: Sinus surgery, several Musculoskeletal Surgical History: Reports: Joint replacement Social & Family History - Family History Family Medical History: Noncontributory Cardiac: Reports: Hypertension Respiratory: Reports: None GI: Reports: Inflammatory bowel disease, Irritable bowel syndrome : Reports: None OBGYN: Reports: None Musculoskeletal: Reports: Fibromyalgia Neurological: Reports: None Psychiatric: Reports: Depression Endocrine/Metabolic: Reports: Obesity/MBI 30+ Hematologic: Reports: None Immunologic: Reports: None Dermatologic: Reports: None Oncologic: Reports: None - Tobacco Use Smoking Status *Q: Never Smoker Years of Tobacco use: 20 Packs/Tins Daily: 1 Used Tobacco, but Quit: Yes Month Tobacco Last Used: 5 YEARS AGO Second Hand Smoke Exposure: No - Caffeine Use Caffeine Use: Reports: None - Alcohol Use Days Per Week of Alcohol Use: 0 - Recreational Drug Use Recreational Drug Use: No - Living Situation & Occupation Living situation: Reports: , with family Occupation: unemployed ED ROS GENERAL - Review of Systems Review Of Systems: See Below Constitutional: Reports: malaise. Denies: fever, chills, weakness, decreased appetite HEENT: Denies: Ear pain, Nose pain, Throat pain, Vertigo Respiratory: Denies: Shortness of Breath, Cough, Sputum Cardiovascular: Denies: Chest pain, Edema, Lightheadedness Endocrine: Reports: fatigue GI/Abdominal: Reports: Abdominal pain, Diarrhea, Nausea, Vomiting. Denies: Bloody stool : Reports: no symptoms Musculoskeletal: Reports: joint pain Skin: Reports: bruising Neurological: Reports: No Symptoms Psychiatric: Reports: No symptoms ED EXAM, GI/ABD - Physical Exam Exam: See Below Exam Limited By: No limitations General Appearance: alert, WD/WN, mild distress Eyes: bilateral: normal appearance Ears: normal external exam, normal TMs Nose: normal inspection Throat/Mouth: Normal inspection, Normal oropharynx Head: normocephalic Neck: normal inspection, supple, non-tender Respiratory/Chest: no respiratory distress, lungs clear, normal breath sounds Cardiovascular: regular rate, rhythm GI/Abdominal: Normal Bowel Sounds, Soft, Tenderness (LUQ, LLQ) Neurological: alert, oriented Psychiatric: normal affect, normal mood Skin Exam: Warm, Dry Course - Vital Signs Last Recorded V/S: Last Vital Signs Temp 98.3 F 02/11/17 09:17 Pulse 101 H 02/11/17 09:17 Resp 20 02/11/17 09:17 BP 136/89 02/11/17 09:17 Pulse Ox 95 02/11/17 09:17 - Orders/Labs/Meds Orders: Active Orders 24 hr Category Date Time Status Abdomen 2V AP Flat Upright [CR] Stat Exams 02/11/17 09:24 Taken Labs: Laboratory Tests 02/11/17 02/11/17 02/11/17 Range/Units 09:24 09:30 09:41 WBC 18.8 H (5.0-10.0) 10^3/uL RBC 4.50 (4.00-5.50) 10^6/uL Hgb 13.8 (12.0-16.0) g/dL Hct 40.5 (37.0-47.0) % MCV 90.0 (82.0-94.0) fL MCH 30.7 (27.0-32.0) pg MCHC 34.1 (33.0-38.0) g/dL RDW Coeff of David 12.2 (11.0-15.0) % Plt Count 249 (150-400) 10^3/uL Neut % (Auto) 83.3 (35-85) % Lymph % (Auto) 8.3 L (10-55) % [place] % (Auto) 6.0 (0-16) % Eos % (Auto) 2.2 (0-5) % Baso % (Auto) 0.2 (0-3) % Neut # (Auto) 15.63 H (1.80-7.00) 10^3/uL Lymph # (Auto) 1.56 (1.00-4.80) 10^3/uL [place] # (Auto) 1.12 H (0.00-0.80) 10^3/uL Eos # (Auto) 0.42 (0.00-0.45) 10^3/uL Baso # (Auto) 0.03 10^3/uL Sodium 138 (136-145) mEq/L Potassium 3.8 (3.5-5.0) mEq/L Chloride 101 (98-106) mEq/L Carbon Dioxide 27 (21-32) mmol/L BUN 8 (7-18) mg/dL Creatinine 0.8 (0.6-1.0) mg/dL Est Cr Clr Drug Dosing TNP Estimated GFR (MDRD) > 60 (>=60) mL/min Glucose 153 H (75-99) mg/dL Calcium 8.5 (8.4-10.1) mg/dL Total Bilirubin 0.5 (0.0-1.0) mg/dL AST 51 H (15-37) U/L ALT 74 (12-78) U/L Alkaline Phosphatase 112 (46-116) U/L C-Reactive Protein 2.0 H (0.2-0.8) mg/dL Total Protein 7.1 (6.4-8.2) g/dL Albumin 3.7 (3.4-5.0) g/dL Urine Color Yellow (YELLOW) Urine Appearance Clear (CLEAR) Urine pH 6.0 (4.5-8.0) Ur Specific [place] 1.019 (1.003-1.020) Urine Protein Negative (NEGATIVE) mg/dL Urine Glucose (UA) Negative (NEGATIVE) mg/dL Urine Ketones Negative (NEGATIVE) mg/dL Urine Occult Blood Negative (NEGATIVE) Urine Nitrite Negative (NEGATIVE) Urine Bilirubin Negative (NEGATIVE) Urine Urobilinogen 0.2 (0.2-1.0) EU/dL Ur Leukocyte Esterase Negative (NEGATIVE) Urine RBC Not seen (0-5) /HPF Urine WBC 0-5 (0-5) /HPF Ur Squamous Epith Cells Few H (NOT SEEN) /HPF Urine Bacteria Occasional H (NOT SEEN) /HPF Urine Mucus Few H (NOT SEEN) /HPF Meds: Medications Discontinued Medications Generic Name Dose Route Start Last Admin Trade Name Freq PRN Reason Stop Dose Admin Alprazolam 1 mg 02/11/17 11:14 02/11/17 11:32 Alprazolam Odt PO 02/11/17 11:15 Not Given ONETIME ONE Alprazolam 1 mg 02/11/17 11:30 Xanax PO 02/11/17 11:31 ONETIME ONE Alprazolam 1 mg 02/11/17 11:25 02/11/17 11:31 Xanax PO 02/11/17 11:26 1 mg ONETIME ONE Administration Lactated Ringer's 1,000 mls @ 150 mls/hr 02/11/17 09:30 02/11/17 09:50 Ringers, Lactated IV 150 mls/hr ASDIRECTED ANDREEA Administration Promethazine HCl 25 mg/ Sodium 51 mls @ 100 mls/hr 02/11/17 09:29 02/11/17 09 :53 Chloride IV 100 mls/hr Q6H PRN Administration Nausea - Re-Assessments/Exams Free Text/Narrative Re-Assessment/Exam: 02/11/17 1130 Patient has had one diarrhea stool. No vomiting. Labs reviewed. WBC is elevated, most likely from her recent steroid injection. CRP is only mildly elevated at 2. Xrays shows some mild air fluid levels. Will await radiology report. IV fluids infusing. Phenergan given. Departure - Departure Time of Disposition: 13:02 Disposition: Home, Self-Care 01 Condition: fair Clinical Impression: Gastroenteritis - Discharge Information Referrals: Sally Garcia NP [Primary Care Provider] - Forms: ED Department Discharge Additional Instructions: 1. Push fluids 2. Tylenol as needed for discomfort 3. Phenergan as needed for nausea 4. [place] foods 5. Tramadol 50 mg every 6 hours as needed for discomfort. 6. Follow up with your primary care provider for ongoing concerns. - My Orders Last 24 Hours: My Active Orders 02/11/17 09:24 Abdomen 2V AP Flat Upright [CR] Stat - Assessment/Plan Last 24 Hours: My Active Orders 02/11/17 09:24 Abdomen 2V AP Flat Upright [CR] Stat ED HPI GI/ABDOMINAL - General Chief Complaint: Abdominal Pain Stated Complaint: STOMACH CRAMPS/N/D/V Time Seen by Provider: 02/11/17 09:26 - Related Data Allergies/ADRs: Allergies Allergy/AdvReac Type Severity Reaction Status Date / Time ceftriaxone sodium Allergy Severe Difficulty Verified 02/11/17 09:25 [From Rocephin] Breathing milnacipran HCl Allergy Intermediate Hallucinati Verified 02/11/17 09:25 [From Savella] ons ondansetron HCl [From Zofran] Allergy Mild Hives Verified 02/11/17 09:25 acetaminophen Allergy Vomiting Verified 02/11/17 09:25 [From Excedrin Sinus Headache] calcium carbonate [From DHEA] Allergy Anxiety Verified 02/11/17 09:25 calcium phosphate,dibasic Allergy Anxiety Verified 02/11/17 09:25 [From DHEA] metoclopramide HCl Allergy Anxiety Verified 02/11/17 09:25 [From Reglan] phenylephrine HCl Allergy Vomiting Verified 02/11/17 09:25 [From Excedrin Sinus Headache] prasterone (DHEA) [From DHEA] Allergy Anxiety Verified 02/11/17 09:25 prednisone Allergy Other Verified 02/11/17 09:25 prochlorperazine Allergy Anxiety Verified 02/11/17 09:25 [From Compazine] prochlorperazine edisylate Allergy Anxiety Verified 02/11/17 09:25 [From Compazine] prochlorperazine maleate Allergy Anxiety Verified 02/11/17 09:25 [From Compazine] ketorolac [From Toradol] AdvReac Bleeding Verified 02/11/17 09:25 NSAIDS (Non-Steroidal AdvReac Bleeding Verified 02/11/17 09:25 Anti-Inflamma Home Meds: Home Meds ALPRAZolam [Xanax] 0.5 mg PO QID PRN 10/02/13 [History] Omeprazole [Prilosec] 20 mg PO BID 10/02/13 [History] levETIRAcetam [Keppra] 750 mg PO BID 10/02/13 [History] Escitalopram [Lexapro] 30 mg PO DAILY 07/11/14 [History] Estradiol 1 mg PO DAILY 08/18/15 [History] Linaclotide [Linzess] 290 mcg PO DAILY PRN 11/24/15 [History] SUMAtriptan [Imitrex] 1 tab PO ASDIRECTED PRN 04/23/16 [History] ARIPiprazole [Abilify] 5 mg PO DAILY 07/29/16 [History] Zolpidem Tartrate [Ambien] 5 mg PO BEDTIME PRN 10/15/16 [History] Nabumetone [Relafen] 750 mg PO BID 10/27/16 [History] lamoTRIgine [Lamotrigine] 25 mg PO BID 10/27/16 [History] Ranitidine HCl [Acid Control] 1 tab PO DAILY 01/06/17 [History] Propranolol [Inderal] 20 mg PO DAILY 01/18/17 [History] Mesalamine [Asacol] 800 mg PO TID 02/11/17 [History] Departure - Departure Time of Disposition: 13:02 Disposition: Home, Self-Care 01 Condition: fair Clinical Impression: Gastroenteritis Referrals: Sally Garcia NP [Primary Care Provider] - Forms: ED Department Discharge Additional Instructions: 1. Push fluids 2. Tylenol as needed for discomfort 3. Phenergan as needed for nausea 4. [place] foods 5. Tramadol 50 mg every 6 hours as needed for discomfort. 6. Follow up with your primary care provider for ongoing concerns.
[2017-02-11 09:52] LABS: CHLORIDE,CL 101 mEq/L (98-106); SODIUM,NA 138 mEq/L (136-145)
[2017-02-11] MEDS ORDERED: ALPRAZolam 0.5 MG Tab.DIS (ODT) PO ONE (11:14)
[2017-02-11] MEDS ORDERED: ALPRAZolam 0.25 MG Tab PO ONE ×2 (11:25→11:30)
== END 2017-02-11 13:10 | disposition home or self-care (01) ==
LOC: CC.ED 09:15
DX: K52.9 Noninfective gastroenteritis and colitis, unspecified (principal); J45.909 Unspecified asthma, uncomplicated; E66.9 Obesity, unspecified; F41.9 Anxiety disorder, unspecified; F32.9 Major depressive disorder, single episode, unspecified; G43.909 Migraine, unspecified, not intractable, without status migrainosus; Z88.8 Allergy status to other drugs, medicaments and biological substances; Z79.899 Other long term (current) drug therapy
CPT/HCPCS: 36415; 74020; 80053; 81001; 85025; 86140; 96361; 96365; 96372; 99284; A9270; J2550; J2930; J7050; J7120

== ENCOUNTER 2017-02-22 09:04 | Emergency (ER) | payer SELFPAY ==
--- NOTE | 2017-02-22 09:31 | EDM.PDOC ---
ED HPI GENERAL MEDICAL PROBLEM - General Chief Complaint: General Stated Complaint: incision issues Time Seen by Provider: 02/22/17 09:06 Source of Information: Reports: Patient History Limitations: Reports: No Limitations - History of Present Illness INITIAL COMMENTS - FREE TEXT/NARRATIVE: Patient is a 42 year old female that presents to the ER. Patient reports she was seen in [place] for bowel obstruction and had bowel resection on the . Patient reports that she was in the hospital there until . She reports that she had drainage from the incision and some yoly were removed from the distal part of the incision to allow drainage. Patient does report since yesterday it has been draining a little more. She reports that does have some chills. Patient reports new redness to the to of the incision area. Patient reports pain at the incision site. Patient denies falk, dizziness, n, v, d , cp, soa, urinary/bowel changes. Patient reports chills with sweats for the last 1 day. Patient reports she called her surgeon yesterday and no changes at this time. Duration: Day(s): (1) Location: Reports: Abdomen Severity: Mild Improves with: Reports: None Worsens with: Reports: None Associated Symptoms: Reports: Diaphoresis. Denies: Confusion, Chest Pain, Cough , cough w sputum, Fever/Chills, Headaches, Loss of Appetite, Malaise, Nausea/ Vomiting, Rash, Seizure, Shortness of Breath, Syncope, Weakness Abdominal Pain Score (Numeric/FACES): 9 - Related Data Allergies Allergy/AdvReac Type Severity Reaction Status Date / Time ceftriaxone sodium Allergy Severe Difficulty Verified 02/24/17 09:07 [From Rocephin] Breathing milnacipran HCl Allergy Intermediate Hallucinati Verified 02/24/17 09:07 [From Savella] ons ondansetron HCl [From Zofran] Allergy Mild Hives Verified 02/24/17 09:07 acetaminophen Allergy Vomiting Verified 02/24/17 09:07 [From Excedrin Sinus Headache] calcium carbonate [From DHEA] Allergy Anxiety Verified 02/24/17 09:07 calcium phosphate,dibasic Allergy Anxiety Verified 02/24/17 09:07 [From DHEA] metoclopramide HCl Allergy Anxiety Verified 02/24/17 09:07 [From Reglan] phenylephrine HCl Allergy Vomiting Verified 02/24/17 09:07 [From Excedrin Sinus Headache] prasterone (DHEA) [From DHEA] Allergy Anxiety Verified 02/24/17 09:07 prednisone Allergy Other Verified 02/24/17 09:07 prochlorperazine Allergy Anxiety Verified 02/24/17 09:07 [From Compazine] prochlorperazine edisylate Allergy Anxiety Verified 02/24/17 09:07 [From Compazine] prochlorperazine maleate Allergy Anxiety Verified 02/24/17 09:07 [From Compazine] ketorolac [From Toradol] AdvReac Bleeding Verified 02/24/17 09:07 NSAIDS (Non-Steroidal AdvReac Bleeding Verified 02/24/17 09:07 Anti-Inflamma Home Meds: Home Meds ALPRAZolam [Xanax] 0.5 mg PO QID PRN 10/02/13 [History] Omeprazole [Prilosec] 20 mg PO BID 10/02/13 [History] levETIRAcetam [Keppra] 750 mg PO BID 10/02/13 [History] Escitalopram [Lexapro] 30 mg PO DAILY 07/11/14 [History] Estradiol 1 mg PO DAILY 08/18/15 [History] Linaclotide [Linzess] 290 mcg PO DAILY PRN 11/24/15 [History] SUMAtriptan [Imitrex] 1 tab PO ASDIRECTED PRN 04/23/16 [History] ARIPiprazole [Abilify] 5 mg PO DAILY 07/29/16 [History] Zolpidem Tartrate [Ambien] 5 mg PO BEDTIME PRN 10/15/16 [History] Nabumetone [Relafen] 750 mg PO BID 10/27/16 [History] lamoTRIgine [Lamotrigine] 25 mg PO BID 10/27/16 [History] Ranitidine HCl [Acid Control] 1 tab PO DAILY 01/06/17 [History] Propranolol [Inderal] 20 mg PO DAILY 01/18/17 [History] Mesalamine [Asacol] 800 mg PO TID 02/11/17 [History] oxyCODONE HCl/Acetaminophen [Percocet 5-325 mg Tablet] 2 tab PO Q4H PRN [History] Past Medical History HEENT History: Reports: Allergic Rhinitis Cardiovascular History: Reports: None Respiratory History: Reports: Asthma Gastrointestinal History: Reports: Chronic Constipation, Inflammatory Bowel Disease, Other (See Below) Other Gastrointestinal History: COLITIS Genitourinary History: Reports: Renal Calculus ART SPECIALIST History: Reports: 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 Musculoskeletal History: Reports: Fibromyalgia, RA Neurological History: Reports: Migraines, Seizure Psychiatric History: Reports: Anxiety, Depression Endocrine/Metabolic History: Reports: Obesity/BMI 30+ Hematologic History: Reports: None Immunologic History: Reports: None Oncologic (Cancer) History: Reports: None Dermatologic History: Reports: None - Infectious Disease History Infectious Disease History: Reports: MRSA - Past Surgical History HEENT Surgical History: Reports: Other (See Below) GI Surgical History: Reports: Other (See Below) Other GI Surgeries/Procedures: bowel resection due to blockage Musculoskeletal Surgical History: Reports: Joint Replacement Social & Family History - Family History Family Medical History: Noncontributory Cardiac: Reports: Hypertension Respiratory: Reports: None GI: Reports: Inflammatory Bowel Disease, Irritable Bowel Syndrome : Reports: None OBGYN: Reports: None Musculoskeletal: Reports: Fibromyalgia Neurological: Reports: None Psychiatric: Reports: Depression Endocrine/Metabolic: Reports: Obesity/MBI 30+ Hematologic: Reports: None Immunologic: Reports: None Dermatologic: Reports: None Oncologic: Reports: None - Tobacco Use Smoking Status *Q: Former Smoker Years of Tobacco use: 20 Packs/Tins Daily: 1 Used Tobacco, but Quit: Yes Month Tobacco Last Used: 2011 Second Hand Smoke Exposure: No - Caffeine Use Caffeine Use: Reports: None - Alcohol Use Days Per Week of Alcohol Use: 0 - Recreational Drug Use Recreational Drug Use: No - Living Situation & Occupation Living situation: Reports: , with Family Occupation: Unemployed ED ROS GENERAL - Review of Systems Review Of Systems: See Below Constitutional: Reports: Chills, Diaphoresis HEENT: Reports: No Symptoms Respiratory: Reports: No Symptoms Cardiovascular: Reports: No Symptoms Endocrine: Reports: No Symptoms GI/Abdominal: Reports: Abdominal Pain (at incision site. ). Denies: Nausea, Vomiting : Reports: No Symptoms Musculoskeletal: Reports: No Symptoms Skin: Reports: Wound (incision site abdomen) Neurological: Reports: No Symptoms Psychiatric: Reports: No Symptoms Hematologic/Lymphatic: Reports: No Symptoms Immunologic: Reports: No Symptoms ED EXAM, GENERAL - Physical Exam Exam: See Below Exam Limited By: No Limitations General Appearance: Alert, WD/WN, No Apparent Distress Eye Exam: Bilateral Eye: Normal Inspection, PERRL Ears: Normal External Exam, Normal Canal, Hearing Grossly Normal, Normal TMs Ear Exam: Bilateral Ear: Auricle Normal, Canal Normal, TM normal Nose: Normal Inspection, Normal Mucosa, No Blood Throat/Mouth: Normal Inspection, Normal Lips, Normal Teeth, Normal Gums, Normal Oropharynx, Normal Voice, No Airway Compromise Head: Atraumatic, Normocephalic Neck: Normal Inspection, Supple, Non-Tender, Full Range of Motion Respiratory/Chest: No Respiratory Distress, Lungs Clear, Normal Breath Sounds, No Accessory Muscle Use Cardiovascular: Normal Peripheral Pulses, Regular Rate, Rhythm, No Edema, No Gallop, No JVD, No Murmur, No Rub Peripheral Pulses: 2+: Radial (L), Radial (R), Posterior Tibial (L), Posterior Tibial (R), Dorsalis Pedis (L), Dorsalis Pedis (R) GI/Abdominal: Normal Bowel Sounds, Soft, Other (incision site vertical abdomen. ) Back Exam: Normal Inspection, Full Range of Motion Extremities: Normal Inspection, Normal Range of Motion, Non-Tender, No Pedal Edema, Normal Capillary Refill Neurological: Alert, Oriented Psychiatric: Normal Affect, Normal Mood Skin Exam: Erythema (incsiion wound, vertical near pelvis to above umbilical. yoly holding top of incision. Dehisced distal incision known by surgeon. Minimal drainage bloody. Mild errythema to top of incision, im thinking this is at tape site. ) Lymphatic: No Adenopathy ED GENERAL MEDICAL PROCEDURES - Additional/Other Procedure(s) Other (Free Text) Procedure(s): Per surgeon, removed some yoly. I removed 8. Every other. There are 10 remaining. No complications. Course - Vital Signs Last Recorded V/S: Last Vital Signs Temp 98.1 F 02/22/17 14:00 Pulse 93 02/22/17 14:00 Resp 18 02/22/17 14:00 BP 143/88 H 02/22/17 14:00 Pulse Ox 97 02/22/17 14:00 - Orders/Labs/Meds Labs: Laboratory Tests 02/22/17 02/22/17 02/22/17 Range/Units 09:40 09:40 09:40 WBC 12.9 H (5.0-10.0) 10^3/uL RBC 4.47 (4.00-5.50) 10^6/uL Hgb 13.6 (12.0-16.0) g/dL Hct 40.5 (37.0-47.0) % MCV 90.6 (82.0-94.0) fL MCH 30.4 (27.0-32.0) pg MCHC 33.6 (33.0-38.0) g/dL RDW Coeff of David 12.5 (11.0-15.0) % Plt Count 418 H (150-400) 10^3/uL Neut % (Auto) 77.0 (35-85) % Lymph % (Auto) 12.1 (10-55) % [place] % (Auto) 8.4 (0-16) % Eos % (Auto) 2.2 (0-5) % Baso % (Auto) 0.3 (0-3) % Neut # (Auto) 9.93 H (1.80-7.00) 10^3/uL Lymph # (Auto) 1.56 (1.00-4.80) 10^3/uL [place] # (Auto) 1.09 H (0.00-0.80) 10^3/uL Eos # (Auto) 0.29 (0.00-0.45) 10^3/uL Baso # (Auto) 0.04 10^3/uL Sodium 139 (136-145) mEq/L Potassium 2.9 L* D (3.5-5.0) mEq/L Chloride 100 (98-106) mEq/L Carbon Dioxide 24 (21-32) mmol/L BUN 5 L (7-18) mg/dL Creatinine 0.8 (0.6-1.0) mg/dL Est Cr Clr Drug Dosing TNP Estimated GFR (MDRD) > 60 (>=60) mL/min Glucose 152 H (75-99) mg/dL Lactic Acid 1.8 (0.4-2.0) mmol/L Calcium 8.8 (8.4-10.1) mg/dL Total Bilirubin 0.3 (0.0-1.0) mg/dL AST 62 H (15-37) U/L ALT 60 (12-78) U/L Alkaline Phosphatase 145 H (46-116) U/L Total Protein 7.6 (6.4-8.2) g/dL Albumin 3.2 L (3.4-5.0) g/dL Meds: Medications Discontinued Medications Generic Name Dose Route Start Last Admin Trade Name Tanmay PRN Reason Stop Dose Admin Hydromorphone HCl 1 mg 02/22/17 10:43 02/22/17 11:44 Dilaudid IVPUSH 02/22/17 10:44 1 mg ONETIME ONE Administration Hydromorphone HCl 1 mg 02/22/17 12:40 02/22/17 12:44 Dilaudid IVPUSH 02/22/17 12:41 1 mg ONETIME ONE Administration Hydromorphone HCl 1 mg 02/22/17 13:44 02/22/17 14:13 Dilaudid IVPUSH 02/22/17 13:45 1 mg ONETIME ONE Administration Sodium Chloride 1,000 mls @ 1,000 mls/hr 02/22/17 09:53 02/22/17 12:06 Normal Saline IV 02/22/17 10:52 1,000 mls/hr .BOLUS ONE Administration Promethazine HCl 25 mg/ Sodium 51 mls @ 100 mls/hr 02/22/17 10:45 02/22/17 12 :10 Chloride IV 02/22/17 11:15 100 mls/hr NOW STA Administration Oxycodone/Acetaminophen 3 packet 02/22/17 13:49 02/22/17 14:21 Take Home: Acetaminophen/Oxycodon, 2 Tab Pack PO 02/22/17 13:50 3 packet ONETIME ONE Administration Oxycodone/Acetaminophen 6 tab 02/22/17 10:00 Percocet 325-5 Mg PO 02/22/17 10:01 .STK-MED ONE Potassium Chloride 40 meq 02/22/17 13:49 02/22/17 14:17 Klor-Con 10 PO 02/22/17 13:50 40 meq ONETIME ONE Administration - Radiology Interpretation Free Text/Narrative:: CT abd/pelvis CT: discussed with radiologist. scant fluid amount bottom of incision where open. No abscess. No acute findings on CT. Stable. - Re-Assessments/Exams Free Text/Narrative Re-Assessment/Exam: 02/22/17 13:48 I called and spoke to Dr. Page her surgeon. No changes at this time. He reports her WBC was worse there in [place]. The wound looks much better compared to his description. Will discharge. Stable. Departure - Departure Time of Disposition: 13:36 Disposition: Home, Self-Care 01 Condition: fair Clinical Impression: Pain at surgical incision - Discharge Information Referrals: PCP,None [Primary Care Provider] - Forms: ED Department Discharge Additional Instructions: Followup with your surgeon by calling Friday Return to the ER for worsening of condition or any emergent concerns Increase fluids Continue your antibiotic and meds Percocet 5/325mg 1 pill every 6 hours as needed for pain #6 Take Home - Assessment/Plan Plan: PLEASE SEE RN NOTE FOR PFSH.
[2017-02-22] MEDS ORDERED: Sodium Chloride 0.9% 1,000 ML IV ONE (09:53)
[2017-02-22] MEDS ORDERED: Acetaminophen/oxyCODONE 325-5 MG Tab PO ONE (10:00)
[2017-02-22 10:03] LABS: CHLORIDE,CL 100 mEq/L (98-106); SODIUM,NA 139 mEq/L (136-145)
[2017-02-22] MEDS ORDERED: HYDROmorphone 1 MG/ML Syringe IVPUSH ONE ×3 (10:43→13:44)
[2017-02-22] MEDS ORDERED: Promethazine 25 MG in Sodium Chloride 0.9% 50 ML IV STA (10:45)
[2017-02-22] MEDS ORDERED: Take Home: Acetaminophen/oxyCODONE 325-5 MG, 2 Tab Pack PO ONE (13:49)
[2017-02-22] MEDS ORDERED: Potassium Chloride 10 MEQ Tab.ER PO ONE (13:49)
[2017-02-22 14:33] VITALS: BP 143/88
== END 2017-02-22 14:35 | disposition home or self-care (01) ==
LOC: CC.ED 09:04
DX: G89.18 Other acute postprocedural pain (principal); J45.909 Unspecified asthma, uncomplicated; G43.909 Migraine, unspecified, not intractable, without status migrainosus; F41.9 Anxiety disorder, unspecified; F32.9 Major depressive disorder, single episode, unspecified; E66.9 Obesity, unspecified; Z87.891 Personal history of nicotine dependence; Z88.8 Allergy status to other drugs, medicaments and biological substances; Z88.6 Allergy status to analgesic agent; Z88.1 Allergy status to other antibiotic agents; Z79.899 Other long term (current) drug therapy
CPT/HCPCS: 36415; 74177; 80053; 83605; 85025; 87040; 87070; 87077; 96365; 96368; 96375; 96376; 99283; A9270; J1170; J2550; J7030; J7050; Q9967; 87186

== ENCOUNTER 2017-02-24 08:56 | Emergency (ER) | payer SELFPAY ==
[2017-02-24 09:11] VITALS: BP 115/75
[2017-02-24] MEDS ORDERED: Acetaminophen/oxyCODONE 325-5 MG Tab PO ONE (09:20)
--- NOTE | 2017-02-24 09:22 | EDM.PDOC ---
[id number] Complaint: PAIN ALL OVER Time Seen by Provider: 02/24/17 09:12 Source of Information: Reports: Patient History Limitations: Reports: No Limitations - History of Present Illness INITIAL COMMENTS - FREE TEXT/NARRATIVE: This patient is a 42 year old female that is very well known to the ER. She returns to ER today for a nonemergency. She was seen over the weekend for post surgery of bowel reconstruction. I did labs and CT of her abdomen. She reports today that she is out of her pain medication. She had Percocet filled on the . She had a total of 36 pills, she is already out per patient. She requests refill. She denies new symptoms. No falk, dizziness, n, v, d, f, wound drainage or redness, no signs of infection. I have instructed the patient that I will not refill her pain medication. I will give her two Percocet here in the ER for pain. She needs to see her surgeon. She agrees with this plan. Onset Date: 02/24/17 Location: Reports: Abdomen Improves with: Reports: None Worsens with: Reports: None Associated Symptoms: Denies: Confusion, Chest Pain, Cough, cough w sputum, Diaphoresis, Fever/Chills, Headaches, Loss of Appetite, Malaise, Nausea/Vomiting , Rash, Seizure, Shortness of Breath, Syncope, Weakness Incisional Pain Score (Numeric/FACES): 8 - Related Data Allergies Allergy/AdvReac Type Severity Reaction Status Date / Time ceftriaxone sodium Allergy Severe Difficulty Verified 02/24/17 09:07 [From Rocephin] Breathing milnacipran HCl Allergy Intermediate Hallucinati Verified 02/24/17 09:07 [From Savella] ons ondansetron HCl [From Zofran] Allergy Mild Hives Verified 02/24/17 09:07 acetaminophen Allergy Vomiting Verified 02/24/17 09:07 [From Excedrin Sinus Headache] calcium carbonate [From DHEA] Allergy Anxiety Verified 02/24/17 09:07 calcium phosphate,dibasic Allergy Anxiety Verified 02/24/17 09:07 [From DHEA] metoclopramide HCl Allergy Anxiety Verified 02/24/17 09:07 [From Reglan] phenylephrine HCl Allergy Vomiting Verified 02/24/17 09:07 [From Excedrin Sinus Headache] prasterone (DHEA) [From DHEA] Allergy Anxiety Verified 02/24/17 09:07 prednisone Allergy Other Verified 02/24/17 09:07 prochlorperazine Allergy Anxiety Verified 02/24/17 09:07 [From Compazine] prochlorperazine edisylate Allergy Anxiety Verified 02/24/17 09:07 [From Compazine] prochlorperazine maleate Allergy Anxiety Verified 02/24/17 09:07 [From Compazine] ketorolac [From Toradol] AdvReac Bleeding Verified 02/24/17 09:07 NSAIDS (Non-Steroidal AdvReac Bleeding Verified 02/24/17 09:07 Anti-Inflamma Home Meds: Home Meds ALPRAZolam [Xanax] 0.5 mg PO QID PRN 10/02/13 [History] Omeprazole [Prilosec] 20 mg PO BID 10/02/13 [History] levETIRAcetam [Keppra] 750 mg PO BID 10/02/13 [History] Escitalopram [Lexapro] 30 mg PO DAILY 07/11/14 [History] Estradiol 1 mg PO DAILY 08/18/15 [History] Linaclotide [Linzess] 290 mcg PO DAILY PRN 11/24/15 [History] SUMAtriptan [Imitrex] 1 tab PO ASDIRECTED PRN 04/23/16 [History] ARIPiprazole [Abilify] 5 mg PO DAILY 07/29/16 [History] Zolpidem Tartrate [Ambien] 5 mg PO BEDTIME PRN 10/15/16 [History] Nabumetone [Relafen] 750 mg PO BID 10/27/16 [History] lamoTRIgine [Lamotrigine] 25 mg PO BID 10/27/16 [History] Ranitidine HCl [Acid Control] 1 tab PO DAILY 01/06/17 [History] Propranolol [Inderal] 20 mg PO DAILY 01/18/17 [History] Mesalamine [Asacol] 800 mg PO TID 02/11/17 [History] oxyCODONE HCl/Acetaminophen [Percocet 5-325 mg Tablet] 2 tab PO Q4H PRN [History] Past Medical History HEENT History: Reports: Allergic Rhinitis Cardiovascular History: Reports: None Respiratory History: Reports: Asthma Gastrointestinal History: Reports: Chronic Constipation, Inflammatory Bowel Disease, Other (See Below) Other Gastrointestinal History: COLITIS Genitourinary History: Reports: Renal Calculus [employer] History: Reports: 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 Musculoskeletal History: Reports: Fibromyalgia, RA Neurological History: Reports: Migraines, Seizure Psychiatric History: Reports: Anxiety, Depression Endocrine/Metabolic History: Reports: Obesity/BMI 30+ Hematologic History: Reports: None Immunologic History: Reports: None Oncologic (Cancer) History: Reports: None Dermatologic History: Reports: None - Infectious Disease History Infectious Disease History: Reports: MRSA - Past Surgical History HEENT Surgical History: Reports: Other (See Below) GI Surgical History: Reports: Other (See Below) Other GI Surgeries/Procedures: bowel resection due to blockage Musculoskeletal Surgical History: Reports: Joint Replacement Social & Family History - Family History Family Medical History: Noncontributory Cardiac: Reports: Hypertension Respiratory: Reports: None GI: Reports: Inflammatory Bowel Disease, Irritable Bowel Syndrome : Reports: None OBGYN: Reports: None Musculoskeletal: Reports: Fibromyalgia Neurological: Reports: None Psychiatric: Reports: Depression Endocrine/Metabolic: Reports: Obesity/MBI 30+ Hematologic: Reports: None Immunologic: Reports: None Dermatologic: Reports: None Oncologic: Reports: None - Tobacco Use Smoking Status *Q: Former Smoker Years of Tobacco use: 20 Packs/Tins Daily: 1 Used Tobacco, but Quit: Yes Month Tobacco Last Used: 5 YEARS AGO Second Hand Smoke Exposure: No - Caffeine Use Caffeine Use: Reports: Soda - Alcohol Use Days Per Week of Alcohol Use: 0 - Recreational Drug Use Recreational Drug Use: No - Living Situation & Occupation Living situation: Reports: , with Family Occupation: Unemployed ED ROS GENERAL - Review of Systems Review Of Systems: See Below Constitutional: Reports: No Symptoms HEENT: Reports: No Symptoms Respiratory: Reports: No Symptoms Cardiovascular: Reports: No Symptoms Endocrine: Reports: No Symptoms GI/Abdominal: Reports: Abdominal Pain. Denies: Nausea, Vomiting : Reports: No Symptoms Musculoskeletal: Reports: No Symptoms Skin: Reports: Wound (surgical abdomen unchanged. ) Neurological: Reports: No Symptoms Psychiatric: Reports: No Symptoms Hematologic/Lymphatic: Reports: No Symptoms Immunologic: Reports: No Symptoms ED EXAM, GENERAL - Physical Exam Exam: See Below Exam Limited By: No Limitations General Appearance: Alert, WD/WN, No Apparent Distress Eye Exam: Bilateral Eye: PERRL Ears: Normal External Exam, Normal Canal, Hearing Grossly Normal, Normal TMs Ear Exam: Bilateral Ear: Auricle Normal, Canal Normal, TM normal Nose: Normal Inspection, Normal Mucosa, No Blood Throat/Mouth: Normal Inspection, Normal Lips, Normal Teeth, Normal Gums, Normal Oropharynx, Normal Voice, No Airway Compromise Head: Atraumatic, Normocephalic Neck: Normal Inspection, Supple, Non-Tender, Full Range of Motion Respiratory/Chest: No Respiratory Distress, Lungs Clear, Normal Breath Sounds, No Accessory Muscle Use Cardiovascular: Normal Peripheral Pulses, No Edema, No Gallop, No JVD, No Murmur , No Rub, Tachycardia (106 on exam) Peripheral Pulses: 2+: Radial (L), Radial (R), Posterior Tibial (L), Posterior Tibial (R), Dorsalis Pedis (L), Dorsalis Pedis (R) GI/Abdominal: Normal Bowel Sounds, Soft, No Organomegaly, No Distention, No Abnormal Bruit, No Mass, Pelvis Stable, Other (wound vertical above umbilical to pelvic region. opening at bottom. some yoly still intact. No redness, heat , drainage. ) Skin Exam: Warm, Dry, Normal Color, No Rash, Other (surgical wound of abdomen. ) Lymphatic: No Adenopathy Course - Vital Signs Last Recorded V/S: Last Vital Signs Temp 99.6 F 02/24/17 09:09 Pulse 118 H 02/24/17 09:09 Resp 20 02/24/17 09:09 BP 115/75 02/24/17 09:09 Pulse Ox 94 L 02/24/17 09:09 - Orders/Labs/Meds Meds: Medications Discontinued Medications Generic Name Dose Route Start Last Admin Trade Name Freq PRN Reason Stop Dose Admin Oxycodone/Acetaminophen 2 tab 02/24/17 09:20 02/24/17 09:26 Percocet 325-5 Mg PO 02/24/17 09:21 2 tab ONETIME ONE Administration Departure - Departure Time of Disposition: :21 Disposition: Home, Self-Care 01 Condition: good Clinical Impression: Medication refill - Discharge Information Referrals: PCP,None [Primary Care Provider] - Forms: ED Department Discharge Additional Instructions: Followup with surgeon as scheduled on Friday Return to the ER for worsening of condition or any emergent concerns such as fever, vomiting, infection Drink a lot of water, overuse of narcotics can cause bowel obstructions - Assessment/Plan Plan: PLEASE SEE RN NOTE FOR PFSH.
== END 2017-02-24 09:35 | disposition home or self-care (01) ==
LOC: CC.ED 08:56
DX: Z76.0 Encounter for issue of repeat prescription (principal); R10.9 Unspecified abdominal pain; F41.9 Anxiety disorder, unspecified; F32.9 Major depressive disorder, single episode, unspecified; E66.9 Obesity, unspecified; J45.909 Unspecified asthma, uncomplicated; G43.909 Migraine, unspecified, not intractable, without status migrainosus; M06.9 Rheumatoid arthritis, unspecified; Z88.8 Allergy status to other drugs, medicaments and biological substances; Z88.6 Allergy status to analgesic agent; Z79.899 Other long term (current) drug therapy; Z87.891 Personal history of nicotine dependence; Z68.37 Body mass index [BMI] 37.0-37.9, adult
CPT/HCPCS: 99281; A9270

== ENCOUNTER 2017-03-01 16:23 | Emergency (ER) | payer SELFPAY ==
[2017-03-01] MEDS ORDERED: Sodium Chloride 0.9% 10 ML Syringe FLUSH PRN (16:34)
[2017-03-01] MEDS ORDERED: HYDROmorphone 1 MG/ML Syringe IVPUSH ONE ×2 (16:36→17:32)
[2017-03-01] MEDS ORDERED: Sodium Chloride 0.9% 1,000 ML IV SCH (16:45)
[2017-03-01 17:02] LABS: CHLORIDE,CL 99 mEq/L (98-106); SODIUM,NA 135 mEq/L (136-145)
[2017-03-01] MEDS ORDERED: Ertapenem 1 GM in Sodium Chloride 0.9% 100 ML IV ONE (17:15)
[2017-03-01] MEDS ORDERED: Iopamidol 612 MG/ML 100 ML Bottle IVPUSH ONE (17:21)
[2017-03-01 17:49] VITALS: BP 151/88
[2017-03-01] MEDS ORDERED: Sodium Chloride 0.9% 100 ML ONE (17:49)
--- NOTE | 2017-03-01 18:55 | EDM.PDOC ---
ED HPI GENERAL MEDICAL PROBLEM - General Chief Complaint: Abdominal Pain Stated Complaint: abdominal pain Time Seen by Provider: 03/01/17 16:33 Source of Information: Reports: Patient History Limitations: Reports: No Limitations - History of Present Illness INITIAL COMMENTS - FREE TEXT/NARRATIVE: Patient had surgery earlier this month for a small bowel stricture, and had to stay in the hospital for an extended time due to infection.She has a midline abdominal incision that is partially healed with an open section at the bottom. there is no obvious sign of infection noted at the site and no drainage. surgery was performed by Dr. Page in [place] Onset: Gradual Duration: Day(s): Location: Reports: Abdomen Quality: Reports: Pressure, Stabbing Severity: Moderate Associated Symptoms: Reports: No Other Symptoms Abdomen Pain Score (Numeric/FACES): 9 - Related Data Allergies Allergy/AdvReac Type Severity Reaction Status Date / Time ceftriaxone sodium Allergy Severe Difficulty Verified 03/01/17 16:25 [From Rocephin] Breathing milnacipran HCl Allergy Intermediate Hallucinati Verified 03/01/17 16:25 [From Savella] ons ondansetron HCl [From Zofran] Allergy Mild Hives Verified 03/01/17 16:25 acetaminophen Allergy Vomiting Verified 03/01/17 16:25 [From Excedrin Sinus Headache] calcium carbonate [From DHEA] Allergy Anxiety Verified 03/01/17 16:25 calcium phosphate,dibasic Allergy Anxiety Verified 03/01/17 16:25 [From DHEA] metoclopramide HCl Allergy Anxiety Verified 03/01/17 16:25 [From Reglan] phenylephrine HCl Allergy Vomiting Verified 03/01/17 16:25 [From Excedrin Sinus Headache] prasterone (DHEA) [From DHEA] Allergy Anxiety Verified 03/01/17 16:25 prednisone Allergy Other Verified 03/01/17 16:25 prochlorperazine Allergy Anxiety Verified 03/01/17 16:25 [From Compazine] prochlorperazine edisylate Allergy Anxiety Verified 03/01/17 16:25 [From Compazine] prochlorperazine maleate Allergy Anxiety Verified 03/01/17 16:25 [From Compazine] ketorolac [From Toradol] AdvReac Bleeding Verified 03/01/17 16:25 NSAIDS (Non-Steroidal AdvReac Bleeding Verified 03/01/17 16:25 Anti-Inflamma Home Meds: Home Meds ALPRAZolam [Xanax] 0.5 mg PO QID PRN 10/02/13 [History] Omeprazole [Prilosec] 20 mg PO BID 10/02/13 [History] levETIRAcetam [Keppra] 750 mg PO BID 10/02/13 [History] Escitalopram [Lexapro] 30 mg PO DAILY 07/11/14 [History] Estradiol 1 mg PO DAILY 08/18/15 [History] Linaclotide [Linzess] 290 mcg PO DAILY PRN 11/24/15 [History] SUMAtriptan [Imitrex] 1 tab PO ASDIRECTED PRN 04/23/16 [History] ARIPiprazole [Abilify] 5 mg PO DAILY 07/29/16 [History] Zolpidem Tartrate [Ambien] 5 mg PO BEDTIME PRN 10/15/16 [History] Nabumetone [Relafen] 750 mg PO BID 10/27/16 [History] lamoTRIgine [Lamotrigine] 25 mg PO BID 10/27/16 [History] Ranitidine HCl [Acid Control] 1 tab PO DAILY 01/06/17 [History] Propranolol [Inderal] 20 mg PO DAILY 01/18/17 [History] Mesalamine [Asacol] 800 mg PO TID 02/11/17 [History] oxyCODONE HCl/Acetaminophen [Percocet 5-325 mg Tablet] 2 tab PO Q4H PRN [History] Past Medical History HEENT History: Reports: Allergic Rhinitis Cardiovascular History: Reports: None Respiratory History: Reports: Asthma Gastrointestinal History: Reports: Chronic Constipation, Inflammatory Bowel Disease, Other (See Below) Other Gastrointestinal History: COLITIS Genitourinary History: Reports: Renal Calculus 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 Musculoskeletal History: Reports: Fibromyalgia, RA Neurological History: Reports: Migraines, Seizure Psychiatric History: Reports: Anxiety, Depression Endocrine/Metabolic History: Reports: Obesity/BMI 30+ Hematologic History: Reports: None Immunologic History: Reports: None Oncologic (Cancer) History: Reports: None Dermatologic History: Reports: None - Infectious Disease History Infectious Disease History: Reports: MRSA - Past Surgical History HEENT Surgical History: Reports: Other (See Below) GI Surgical History: Reports: Other (See Below) Other GI Surgeries/Procedures: bowel resection due to blockage ON 02-13-17 Musculoskeletal Surgical History: Reports: Joint Replacement Social & Family History - Family History Family Medical History: Noncontributory Cardiac: Reports: Hypertension Respiratory: Reports: None GI: Reports: Inflammatory Bowel Disease, Irritable Bowel Syndrome : Reports: None OBGYN: Reports: None Musculoskeletal: Reports: Fibromyalgia Neurological: Reports: None Psychiatric: Reports: Depression Endocrine/Metabolic: Reports: Obesity/MBI 30+ Hematologic: Reports: None Immunologic: Reports: None Dermatologic: Reports: None Oncologic: Reports: None - Tobacco Use Smoking Status *Q: Former Smoker Years of Tobacco use: 15 Packs/Tins Daily: 1 Used Tobacco, but Quit: Yes Month Tobacco Last Used: 5 years ago Second Hand Smoke Exposure: No - Caffeine Use Caffeine Use: Reports: Soda - Alcohol Use Days Per Week of Alcohol Use: 0 - Recreational Drug Use Recreational Drug Use: No - Living Situation & Occupation Living situation: Reports: , with Family Occupation: Unemployed ED ROS GENERAL - Review of Systems Review Of Systems: See Below Constitutional: Reports: Fever, Fatigue HEENT: Reports: No Symptoms Respiratory: Reports: No Symptoms Cardiovascular: Reports: No Symptoms GI/Abdominal: Reports: Abdominal Pain, Diarrhea, Nausea : Reports: No Symptoms Musculoskeletal: Reports: No Symptoms Skin: Reports: No Symptoms Neurological: Reports: No Symptoms Psychiatric: Reports: No Symptoms Hematologic/Lymphatic: Reports: No Symptoms Immunologic: Reports: No Symptoms Free Text/Narrative/Comment: pateint states she woke up this mornign with increased abd pain, N/V and diarrhea. ED EXAM, GI/ABD - Physical Exam Exam: See Below Text/Narrative:: Abdomen is round and slightly distended but soft to touch. Bowel sounds are hypoactive. HR is 115, patient has a low grade fever 100.4. Exam Limited By: No Limitations General Appearance: Alert Ears: Normal External Exam Nose: Normal Inspection Throat/Mouth: Normal Inspection Head: Atraumatic Neck: Normal Inspection Respiratory/Chest: No Respiratory Distress, Lungs Clear GI/Abdominal: Hypoactive Bowel Sounds, Tenderness, Distention Extremities: Normal Inspection, Normal Range of Motion Neurological: Alert, Oriented Psychiatric: Anxious Skin Exam: Warm, Dry Course - Vital Signs Last Recorded V/S: Last Vital Signs Temp 98.4 F 03/01/17 17:47 Pulse 117 H 03/01/17 17:47 Resp 18 03/01/17 17:47 BP 151/88 H 03/01/17 17:47 Pulse Ox 96 03/01/17 17:47 - Orders/Labs/Meds Orders: Active Orders 24 hr Category Date Time Status Abdomen Pelvis w Cont [CT] Stat Exams 03/01/17 17:12 Ordered CULTURE BLOOD [BC] Stat Lab 03/01/17 16:48 Received CULTURE BLOOD [BC] Stat Lab 03/01/17 17:01 Received UA W/MICROSCOPIC [URIN] Stat Lab 03/01/17 16:34 Uncollected Sodium Chloride 0.9% [Normal Saline] 1,000 ml Med 03/01/17 16:45 Active IV ASDIRECTED Sodium Chloride 0.9% [Saline Flush] Med 03/01/17 16:34 Active 10 ml FLUSH ASDIRECTED PRN Blood Culture x2 Reflex Set [OM.PC] Stat Oth 03/01/17 16:34 Ordered Saline Lock Insert [OM.PC] Routine Oth 03/01/17 16:34 Ordered Medication Orders Sodium Chloride (Normal Saline) 1,000 mls @ 100 mls/hr IV ASDIRECTED ANDREEA Last Admin: 03/01/17 16:55 Dose: 100 mls/hr Sodium Chloride (Saline Flush) 10 ml FLUSH ASDIRECTED PRN PRN Reason: Keep Vein Open Labs: Laboratory Tests 03/01/17 03/01/17 Range/Units 16:48 16:48 WBC 15.5 H (5.0-10.0) 10^3/uL RBC 4.93 (4.00-5.50) 10^6/uL Hgb 14.8 (12.0-16.0) g/dL Hct 44.2 (37.0-47.0) % MCV 89.7 (82.0-94.0) fL MCH 30.0 (27.0-32.0) pg MCHC 33.5 (33.0-38.0) g/dL RDW Coeff of David 12.6 (11.0-15.0) % Plt Count 579 H (150-400) 10^3/uL Neut % (Auto) 86.2 H (35-85) % Lymph % (Auto) 8.1 L (10-55) % Woodward % (Auto) 3.8 (0-16) % Eos % (Auto) 1.5 (0-5) % Baso % (Auto) 0.4 (0-3) % Neut # (Auto) 13.33 H (1.80-7.00) 10^3/uL Lymph # (Auto) 1.26 (1.00-4.80) 10^3/uL Woodward # (Auto) 0.59 (0.00-0.80) 10^3/uL Eos # (Auto) 0.23 (0.00-0.45) 10^3/uL Baso # (Auto) 0.06 10^3/uL Sodium 135 L (136-145) mEq/L Potassium 3.8 D (3.5-5.0) mEq/L Chloride 99 (98-106) mEq/L Carbon Dioxide 18 L (21-32) mmol/L BUN 10 D (7-18) mg/dL Creatinine 1.0 (0.6-1.0) mg/dL Est Cr Clr Drug Dosing 61.24 mL/min Estimated GFR (MDRD) > 60 (>=60) mL/min Glucose 146 H (75-99) mg/dL Calcium 9.4 (8.4-10.1) mg/dL Total Bilirubin 0.3 (0.0-1.0) mg/dL AST 41 H (15-37) U/L ALT 52 (12-78) U/L Alkaline Phosphatase 164 H (46-116) U/L Total Protein 8.3 H (6.4-8.2) g/dL Albumin 3.8 (3.4-5.0) g/dL Meds: Medications Generic Name Dose Route Start Last Admin Trade Name Freq PRN Reason Stop Dose Admin Sodium Chloride 1,000 mls @ 100 mls/hr 03/01/17 16:45 03/01/17 16:55 Normal Saline IV 100 mls/hr ASDIRECTED ANDREEA Administration Sodium Chloride 10 ml 03/01/17 16:34 Saline Flush FLUSH ASDIRECTED PRN Keep Vein Open Discontinued Medications Generic Name Dose Route Start Last Admin Trade Name Freq PRN Reason Stop Dose Admin Hydromorphone HCl 1 mg 03/01/17 16:36 03/01/17 17:01 Dilaudid IVPUSH 03/01/17 16:37 1 mg Q1H ONE Administration Hydromorphone HCl 1 mg 03/01/17 17:32 03/01/17 17:35 Dilaudid IVPUSH 03/01/17 17:33 1 mg ONETIME ONE Administration Ertapenem 1 gm/ Sodium 100 mls @ 100 mls/hr 03/01/17 17:15 03/01/17 17:41 Chloride IV 03/01/17 18:14 100 mls/hr ONETIME ONE Administration Sodium Chloride Confirm 03/01/17 17:49 03/01/17 17:42 Normal Saline Administered 03/01/17 17:50 Not Given Dose 100 mls @ as directed .ROUTE .STK-MED ONE Iopamidol 100 ml 03/01/17 17:21 03/01/17 17:34 Isovue-300 (61%) IVPUSH 03/01/17 17:22 100 ml ONETIME ONE Administration Departure - Departure Time of Disposition: 18:56 (I spoke with Dr. Page who evaluatied the CT. He instructed me to send the patient home, and have her call his office in the morning if she was not imporved, or go to the [place] [facility] for further evaluation) Disposition: Home, Self-Care 01 Condition: fair Clinical Impression: Abdominal pain - Discharge Information Forms: ED Department Discharge Additional Instructions: Follow up with Dr. Hoyos office next week, or go to [place] [facility] if your condition worsens. - My Orders Last 24 Hours: My Active Orders 03/01/17 16:34 UA W/MICROSCOPIC [URIN] Stat Sodium Chloride 0.9% [Saline Flush] 10 ml FLUSH ASDIRECTED PRN Blood Culture x2 Reflex Set [OM.PC] Stat Saline Lock Insert [OM.PC] Routine 03/01/17 16:45 Sodium Chloride 0.9% [Normal Saline] 1,000 ml IV ASDIRECTED 03/01/17 16:48 CULTURE BLOOD [BC] Stat 03/01/17 17:01 CULTURE BLOOD [BC] Stat 03/01/17 17:12 Abdomen Pelvis w Cont [CT] Stat - Assessment/Plan Last 24 Hours: My Active Orders 03/01/17 16:34 UA W/MICROSCOPIC [URIN] Stat Sodium Chloride 0.9% [Saline Flush] 10 ml FLUSH ASDIRECTED PRN Blood Culture x2 Reflex Set [OM.PC] Stat Saline Lock Insert [OM.PC] Routine 03/01/17 16:45 Sodium Chloride 0.9% [Normal Saline] 1,000 ml IV ASDIRECTED 03/01/17 16:48 CULTURE BLOOD [BC] Stat 03/01/17 17:01 CULTURE BLOOD [BC] Stat 03/01/17 17:12 Abdomen Pelvis w Cont [CT] Stat
== END 2017-03-01 19:28 | disposition home or self-care (01) ==
LOC: CC.ED 16:23
DX: R10.9 Unspecified abdominal pain (principal); J45.909 Unspecified asthma, uncomplicated; F41.9 Anxiety disorder, unspecified; F32.9 Major depressive disorder, single episode, unspecified; E66.9 Obesity, unspecified; G43.909 Migraine, unspecified, not intractable, without status migrainosus; Z88.8 Allergy status to other drugs, medicaments and biological substances; Z88.6 Allergy status to analgesic agent; Z79.899 Other long term (current) drug therapy; Z87.891 Personal history of nicotine dependence
CPT/HCPCS: 36415; 74177; 80053; 85025; 87040; 96361; 96374; 96375; 96376; 99284; J1170; J1335; J7030; J7050; Q9967; 96365

== ENCOUNTER 2017-03-02 09:44 | Emergency (ER) | payer SELFPAY ==
[2017-03-02 09:49] VITALS: BP 121/101
--- NOTE | 2017-03-02 10:07 | EDM.PDOC ---
ED HPI GENERAL MEDICAL PROBLEM - General Chief Complaint: Abdominal Pain Stated Complaint: abdominal pain Time Seen by Provider: 03/02/17 10:01 Source of Information: Reports: Patient - History of Present Illness INITIAL COMMENTS - FREE TEXT/NARRATIVE: Was seen here yesterday for a full abdominal workup to include CT after she presented with ramirez. After speaking with her surgeon, he wanted her to follow up with him next week but was not going to write her anymore pain medications Onset: Gradual Duration: Hour(s): Location: Reports: Abdomen Quality: Reports: Sharp Severity: Severe Associated Symptoms: Reports: Nausea/Vomiting Right Lower Abdominal Pain Score (Numeric/FACES): 9 - Related Data Allergies Allergy/AdvReac Type Severity Reaction Status Date / Time ceftriaxone sodium Allergy Severe Difficulty Verified 03/02/17 09:53 [From Rocephin] Breathing milnacipran HCl Allergy Intermediate Hallucinati Verified 03/02/17 09:53 [From Savella] ons ondansetron HCl [From Zofran] Allergy Mild Hives Verified 03/02/17 09:53 acetaminophen Allergy Vomiting Verified 03/02/17 09:53 [From Excedrin Sinus Headache] calcium carbonate [From DHEA] Allergy Anxiety Verified 03/02/17 09:53 calcium phosphate,dibasic Allergy Anxiety Verified 03/02/17 09:53 [From DHEA] metoclopramide HCl Allergy Anxiety Verified 03/02/17 09:53 [From Reglan] phenylephrine HCl Allergy Vomiting Verified 03/02/17 09:53 [From Excedrin Sinus Headache] prasterone (DHEA) [From DHEA] Allergy Anxiety Verified 03/02/17 09:53 prednisone Allergy Other Verified 03/02/17 09:53 prochlorperazine Allergy Anxiety Verified 03/02/17 09:53 [From Compazine] prochlorperazine edisylate Allergy Anxiety Verified 03/02/17 09:53 [From Compazine] prochlorperazine maleate Allergy Anxiety Verified 03/02/17 09:53 [From Compazine] ketorolac [From Toradol] AdvReac Bleeding Verified 03/02/17 09:53 NSAIDS (Non-Steroidal AdvReac Bleeding Verified 03/02/17 09:53 Anti-Inflamma Home Meds: Home Meds ALPRAZolam [Xanax] 0.5 mg PO QID PRN 10/02/13 [History] Omeprazole [Prilosec] 20 mg PO BID 10/02/13 [History] levETIRAcetam [Keppra] 750 mg PO BID 10/02/13 [History] Escitalopram [Lexapro] 30 mg PO DAILY 07/11/14 [History] Estradiol 1 mg PO DAILY 08/18/15 [History] Linaclotide [Linzess] 290 mcg PO DAILY PRN 11/24/15 [History] SUMAtriptan [Imitrex] 1 tab PO ASDIRECTED PRN 04/23/16 [History] ARIPiprazole [Abilify] 5 mg PO DAILY 07/29/16 [History] Zolpidem Tartrate [Ambien] 5 mg PO BEDTIME PRN 10/15/16 [History] Nabumetone [Relafen] 750 mg PO BID 10/27/16 [History] lamoTRIgine [Lamotrigine] 25 mg PO BID 10/27/16 [History] Ranitidine HCl [Acid Control] 1 tab PO DAILY 01/06/17 [History] Propranolol [Inderal] 20 mg PO DAILY 01/18/17 [History] Mesalamine [Asacol] 800 mg PO TID 02/11/17 [History] oxyCODONE HCl/Acetaminophen [Percocet 5-325 mg Tablet] 2 tab PO Q4H PRN [History] Past Medical History HEENT History: Reports: Allergic Rhinitis Cardiovascular History: Reports: None Respiratory History: Reports: Asthma Gastrointestinal History: Reports: Chronic Constipation, Inflammatory Bowel Disease, Other (See Below) Other Gastrointestinal History: COLITIS Genitourinary History: Reports: Renal Calculus 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: 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 Musculoskeletal History: Reports: Fibromyalgia, RA Neurological History: Reports: Migraines, Seizure Psychiatric History: Reports: Anxiety, Depression Endocrine/Metabolic History: Reports: Obesity/BMI 30+ Hematologic History: Reports: None Immunologic History: Reports: None Oncologic (Cancer) History: Reports: None Dermatologic History: Reports: None - Infectious Disease History Infectious Disease History: Reports: MRSA - Past Surgical History HEENT Surgical History: Reports: Other (See Below) GI Surgical History: Reports: Other (See Below) Other GI Surgeries/Procedures: bowel resection due to blockage ON 02-13-17 Musculoskeletal Surgical History: Reports: Joint Replacement Social & Family History - Family History Family Medical History: Noncontributory Cardiac: Reports: Hypertension Respiratory: Reports: None GI: Reports: Inflammatory Bowel Disease, Irritable Bowel Syndrome : Reports: None OBGYN: Reports: None Musculoskeletal: Reports: Fibromyalgia Neurological: Reports: None Psychiatric: Reports: Depression Endocrine/Metabolic: Reports: Obesity/MBI 30+ Hematologic: Reports: None Immunologic: Reports: None Dermatologic: Reports: None Oncologic: Reports: None - Tobacco Use Smoking Status *Q: Former Smoker Years of Tobacco use: 15 Packs/Tins Daily: 1 Used Tobacco, but Quit: Yes Month Tobacco Last Used: 5 years ago Second Hand Smoke Exposure: No - Caffeine Use Caffeine Use: Reports: Soda - Alcohol Use Days Per Week of Alcohol Use: 0 - Recreational Drug Use Recreational Drug Use: No - Living Situation & Occupation Living situation: Reports: , with Family Occupation: Unemployed ED ROS GENERAL - Review of Systems Review Of Systems: See Below Constitutional: Reports: Fatigue HEENT: Reports: No Symptoms Respiratory: Reports: No Symptoms Cardiovascular: Reports: No Symptoms GI/Abdominal: Reports: Abdominal Pain, Diarrhea, Nausea Musculoskeletal: Reports: No Symptoms Skin: Reports: No Symptoms Neurological: Reports: No Symptoms Psychiatric: Reports: No Symptoms Hematologic/Lymphatic: Reports: No Symptoms Immunologic: Reports: No Symptoms ED EXAM, GI/ABD - Physical Exam Exam: See Below Exam Limited By: No Limitations General Appearance: Alert, WD/WN Ears: Normal External Exam Nose: Normal Inspection Throat/Mouth: Normal Inspection Head: Atraumatic Neck: Normal Inspection Respiratory/Chest: No Respiratory Distress Cardiovascular: Normal Peripheral Pulses GI/Abdominal: Hypoactive Bowel Sounds, Distention (Midline abdominal incision that is healng and open at the bottom.) Back Exam: Normal Inspection Extremities: Normal Inspection Psychiatric: Anxious Skin Exam: Ecchymosis Course - Vital Signs Last Recorded V/S: Last Vital Signs Temp 98.0 F 03/02/17 09:46 Pulse 137 H 03/02/17 09:46 Resp 20 03/02/17 09:46 BP 121/101 H 03/02/17 09:46 Pulse Ox 95 03/02/17 09:46 Departure - Departure Time of Disposition: 10:06 Disposition: Home, Self-Care 01 Condition: fair Clinical Impression: Abdominal pain, Abdominal pain - Discharge Information Forms: ED Department Discharge Additional Instructions: Follow up with Dr. Page next week, or he wants you to go back to [facility].
== END 2017-03-02 10:17 | disposition home or self-care (01) ==
LOC: CC.ED 09:44
DX: G89.18 Other acute postprocedural pain (principal); R10.31 Right lower quadrant pain; J45.909 Unspecified asthma, uncomplicated; G43.909 Migraine, unspecified, not intractable, without status migrainosus; F41.9 Anxiety disorder, unspecified; F32.9 Major depressive disorder, single episode, unspecified; E66.9 Obesity, unspecified; Z88.8 Allergy status to other drugs, medicaments and biological substances; Z79.899 Other long term (current) drug therapy
CPT/HCPCS: 99283

== ENCOUNTER 2017-03-25 11:21 | Emergency (ER) | payer SELFPAY ==
[2017-03-25 11:31] VITALS: BP 126/75
[2017-03-25] MEDS ORDERED: Promethazine 25 MG/ML SDV IM ONE (12:09)
[2017-03-25] MEDS ORDERED: SUMAtriptan 6 MG/0.5 ML SDV SUBCUT ONE (12:09)
--- NOTE | 2017-03-25 12:18 | EDM.PDOC ---
[id number] MIGRAINE/VOMITTING Time Seen by Provider: 03/25/17 11:55 Source of Information: Reports: Patient History Limitations: Reports: No Limitations - History of Present Illness INITIAL COMMENTS - FREE TEXT/NARRATIVE: patient presents today with complaints of a migraine. States awoke with it this am. Did try to take an Imitrex and a promethazine at home but vomited them up and is not getting relief. Did not have any more of her medications then to try thereafter. Does have associated photophobia, nausea and vomiting, her typical associated symptoms with this. She denies any neurological complaints, no numbness, tingling or weakness. Is having ongoing abdominal concerns that she is seeing her regular provider for. Onset: Today, Sudden Duration: Hour(s):, Getting Worse Location: Reports: Head Quality: Reports: Pressure, Sharp, Throbbing Severity: Severe Associated Symptoms: Reports: Nausea/Vomiting. Denies: Confusion, Cough, Fever/ Chills, Loss of Appetite, Shortness of Breath, Syncope, Weakness Treatments AGRICULTURAL CHEMIST: Reports: Home Treatments Other Treatments AGRICULTURAL CHEMIST: Imitrex, Promethazine - Related Data Allergies Allergy/AdvReac Type Severity Reaction Status Date / Time ceftriaxone sodium Allergy Severe Difficulty Verified 03/25/17 11:31 [From Rocephin] Breathing milnacipran HCl Allergy Intermediate Hallucinati Verified 03/25/17 11:31 [From Savella] ons ondansetron HCl [From Zofran] Allergy Mild Hives Verified 03/25/17 11:31 acetaminophen Allergy Vomiting Verified 03/25/17 11:31 [From Excedrin Sinus Headache] calcium carbonate [From DHEA] Allergy Anxiety Verified 03/25/17 11:31 calcium phosphate,dibasic Allergy Anxiety Verified 03/25/17 11:31 [From DHEA] metoclopramide HCl Allergy Anxiety Verified 03/25/17 11:31 [From Reglan] phenylephrine HCl Allergy Vomiting Verified 03/25/17 11:31 [From Excedrin Sinus Headache] prasterone (DHEA) [From DHEA] Allergy Anxiety Verified 03/25/17 11:31 prednisone Allergy Other Verified 03/25/17 11:31 prochlorperazine Allergy Anxiety Verified 03/25/17 11:31 [From Compazine] prochlorperazine edisylate Allergy Anxiety Verified 03/25/17 11:31 [From Compazine] prochlorperazine maleate Allergy Anxiety Verified 03/25/17 11:31 [From Compazine] ketorolac [From Toradol] AdvReac Bleeding Verified 03/25/17 11:31 NSAIDS (Non-Steroidal AdvReac Bleeding Verified 03/25/17 11:31 Anti-Inflamma Home Meds: Home Meds ALPRAZolam [Xanax] 0.5 mg PO QID PRN 10/02/13 [History] Omeprazole [Prilosec] 20 mg PO BID 10/02/13 [History] levETIRAcetam [Keppra] 750 mg PO BID 10/02/13 [History] Escitalopram [Lexapro] 30 mg PO DAILY 07/11/14 [History] Estradiol 1 mg PO DAILY 08/18/15 [History] Linaclotide [Linzess] 290 mcg PO DAILY PRN 11/24/15 [History] SUMAtriptan [Imitrex] 1 tab PO ASDIRECTED PRN 04/23/16 [History] ARIPiprazole [Abilify] 5 mg PO DAILY 07/29/16 [History] Zolpidem Tartrate [Ambien] 5 mg PO BEDTIME PRN 10/15/16 [History] Nabumetone [Relafen] 750 mg PO BID 10/27/16 [History] lamoTRIgine [Lamotrigine] 25 mg PO BID 10/27/16 [History] Ranitidine HCl [Acid Control] 1 tab PO DAILY 01/06/17 [History] Propranolol [Inderal] 20 mg PO DAILY 01/18/17 [History] Mesalamine [Asacol] 800 mg PO TID 02/11/17 [History] oxyCODONE HCl/Acetaminophen [Percocet 5-325 mg Tablet] 2 tab PO Q4H PRN [History] Promethazine [Phenergan] 25 mg PO Q6H #30 tablet 03/25/17 [Rx] Past Medical History HEENT History: Reports: Allergic Rhinitis Cardiovascular History: Reports: None Respiratory History: Reports: Asthma Gastrointestinal History: Reports: Chronic Constipation, Inflammatory Bowel Disease, Other (See Below) Other Gastrointestinal History: COLITIS Genitourinary History: Reports: Renal Calculus 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: 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 Musculoskeletal History: Reports: Fibromyalgia, RA Neurological History: Reports: Migraines, Seizure Psychiatric History: Reports: Anxiety, Depression Endocrine/Metabolic History: Reports: Obesity/BMI 30+ Hematologic History: Reports: None Immunologic History: Reports: None Oncologic (Cancer) History: Reports: None Dermatologic History: Reports: None - Infectious Disease History Infectious Disease History: Reports: MRSA - Past Surgical History HEENT Surgical History: Reports: Other (See Below) GI Surgical History: Reports: Other (See Below) Other GI Surgeries/Procedures: bowel resection due to blockage ON 02-13-17 Musculoskeletal Surgical History: Reports: Joint Replacement Social & Family History - Family History Family Medical History: Noncontributory Cardiac: Reports: Hypertension Respiratory: Reports: None GI: Reports: Inflammatory Bowel Disease, Irritable Bowel Syndrome : Reports: None OBGYN: Reports: None Musculoskeletal: Reports: Fibromyalgia Neurological: Reports: None Psychiatric: Reports: Depression Endocrine/Metabolic: Reports: Obesity/MBI 30+ Hematologic: Reports: None Immunologic: Reports: None Dermatologic: Reports: None Oncologic: Reports: None - Tobacco Use Smoking Status *Q: Former Smoker Years of Tobacco use: 15 Packs/Tins Daily: 1 Used Tobacco, but Quit: Yes Month Tobacco Last Used: unknown Second Hand Smoke Exposure: No - Caffeine Use Caffeine Use: Reports: None - Alcohol Use Days Per Week of Alcohol Use: 0 - Recreational Drug Use Recreational Drug Use: No - Living Situation & Occupation Living situation: Reports: , with Family Occupation: Unemployed ED ROS GENERAL - Review of Systems Review Of Systems: See Below Constitutional: Denies: Fever, Chills, Malaise, Weakness HEENT: Reports: No Symptoms Respiratory: Denies: Shortness of Breath Cardiovascular: Denies: Chest Pain, Lightheadedness, Syncope Endocrine: Reports: No Symptoms GI/Abdominal: Reports: Diarrhea, Nausea, Vomiting : Reports: No Symptoms Musculoskeletal: Reports: No Symptoms Skin: Reports: No Symptoms Neurological: Reports: Headache. Denies: Dizziness, Numbness, Seizure, Tingling , Change in Speech, Gait Disturbance Psychiatric: Reports: No Symptoms - Physical Exam Exam: See Below Exam Limited By: No Limitations General Appearance: Alert, WD/WN, Mild Distress Eye Exam: Bilateral Eye: EOMI, PERRL Ears: Normal External Exam, Normal TMs Nose: Normal Inspection, Normal Mucosa, No Blood Throat/Mouth: Normal Inspection, Normal Oropharynx Head Exam: Normocephalic Neck: Normal Inspection, Supple, Non-Tender Respiratory/Chest: No Respiratory Distress, Lungs Clear, Normal Breath Sounds Cardiovascular: Normal Peripheral Pulses, Regular Rate, Rhythm GI/Abdominal: Normal Bowel Sounds, Soft, Non-Tender Neuro Exam (Abbreviated): Alert, Oriented, CN II-XII Intact, Normal Cognition, Normal Gait, Normal Reflexes, No Motor/Sensory Deficits Back Exam: Normal Inspection Extremities: Normal Capillary Refill Skin Exam: Warm, Dry Course - Vital Signs Last Recorded V/S: Last Vital Signs Temp 97.3 F 03/25/17 11:26 Pulse 80 03/25/17 11:26 Resp 16 03/25/17 11:26 BP 126/75 03/25/17 11:26 Pulse Ox 94 L 03/25/17 11:26 - Orders/Labs/Meds Meds: Medications Discontinued Medications Generic Name Dose Route Start Last Admin Trade Name Tanmay PRN Reason Stop Dose Admin Promethazine HCl 25 mg 03/25/17 12:09 03/25/17 12:19 Phenergan IM 03/25/17 12:10 25 mg NOW ONE Administration Sumatriptan Succinate 6 mg 03/25/17 12:09 03/25/17 12:21 Imitrex SUBCUT 03/25/17 12:10 6 mg ONETIME ONE Administration - Re-Assessments/Exams Free Text/Narrative Re-Assessment/Exam: 03/25/17 12:16 Does have dry heaves/vomiting in ER. Injections ordered. Refilled her Promethazine and encouraged to refill Imitrex as well and use as directed. Departure - Departure Time of Disposition: 12:15 Disposition: Home, Self-Care 01 Condition: Fair Clinical Impression: Migraine Migraine Qualifiers: Migraine type: without aura - Discharge Information Prescriptions: Promethazine [Phenergan] 25 mg PO Q6H #30 tablet Referrals: PCP,None [Primary Care Provider] - Forms: ED Department Discharge Additional Instructions: 1. Rest 2. Push fluids if able 3. Phenergan as needed for nausea 4. Imitrex for headache 5. Follow up with PCP for any ongoing concerns.
== END 2017-03-25 12:25 | disposition home or self-care (01) ==
LOC: CC.ED 11:21
DX: G43.009 Migraine without aura, not intractable, without status migrainosus (principal); J45.909 Unspecified asthma, uncomplicated; F41.9 Anxiety disorder, unspecified; F32.9 Major depressive disorder, single episode, unspecified; M06.9 Rheumatoid arthritis, unspecified; E66.9 Obesity, unspecified; Z68.35 Body mass index [BMI] 35.0-35.9, adult; Z88.1 Allergy status to other antibiotic agents; Z88.8 Allergy status to other drugs, medicaments and biological substances; Z79.899 Other long term (current) drug therapy; Z87.891 Personal history of nicotine dependence; Z87.442 Personal history of urinary calculi; Z98.890 Other specified postprocedural states
CPT/HCPCS: 96372; 99282; J2550; J3030

== ENCOUNTER 2017-03-30 01:33 | Emergency (ER) | payer SELFPAY ==
[2017-03-30 01:37] VITALS: BP 160/110
--- NOTE | 2017-03-30 02:06 | EDM.PDOC ---
ED HPI GENERAL MEDICAL PROBLEM - General Chief Complaint: Headache Stated Complaint: MIGRAINE Time Seen by Provider: 03/30/17 01:46 Source of Information: Reports: Patient History Limitations: Reports: No Limitations - History of Present Illness INITIAL COMMENTS - FREE TEXT/NARRATIVE: This patient is very known to the ER. Patient had called the ER around 4pm today to ask who the provider building consultant for the ER was. She also reported a different symptom of vaginal itching to the nurse on the phone. She has not mentioned this complaint to me now in the ER. The patient reports that about 9pm last night she started with a right sided temporal headache with nausea, vomiting x1, photophobia, phonophobia. She reports this is her typical migraine. She reports to me that she took two doses of Imitrex and phenergan without easing her migraine. The patient reports that she did take her Ativan. She denies taking any narcotic medications or any other pain medications. This patient presents to the ER frequently with pain related complaints. I did instruct the patient I would sample her urine for drugs to ensure no pain medications other than what she has reported to me. I will also check a urine based on her previous call in complaint of vaginal itching. The patient understands what tests have been ordered. She denies neck pain, neck stiffness, cp, soa, abd pain, urinary/bowel changes, unilateral weaknesses. She is fully alert and oriented. Onset Date: 03/29/17 Onset Time: 21:00 Location: Reports: Head Headache Pain Score (Numeric/FACES): 8 - Related Data Allergies Allergy/AdvReac Type Severity Reaction Status Date / Time ceftriaxone sodium Allergy Severe Difficulty Verified 03/30/17 01:36 [From Rocephin] Breathing milnacipran HCl Allergy Intermediate Hallucinati Verified 03/30/17 01:36 [From Savella] ons ondansetron HCl [From Zofran] Allergy Mild Hives Verified 03/30/17 01:36 acetaminophen Allergy Vomiting Verified 03/30/17 01:36 [From Excedrin Sinus Headache] calcium carbonate [From DHEA] Allergy Anxiety Verified 03/30/17 01:36 calcium phosphate,dibasic Allergy Anxiety Verified 03/30/17 01:36 [From DHEA] metoclopramide HCl Allergy Anxiety Verified 03/30/17 01:36 [From Reglan] phenylephrine HCl Allergy Vomiting Verified 03/30/17 01:36 [From Excedrin Sinus Headache] prasterone (DHEA) [From DHEA] Allergy Anxiety Verified 03/30/17 01:36 prednisone Allergy Other Verified 03/30/17 01:36 prochlorperazine Allergy Anxiety Verified 03/30/17 01:36 [From Compazine] prochlorperazine edisylate Allergy Anxiety Verified 03/30/17 01:36 [From Compazine] prochlorperazine maleate Allergy Anxiety Verified 03/30/17 01:36 [From Compazine] ketorolac [From Toradol] AdvReac Bleeding Verified 03/30/17 01:36 NSAIDS (Non-Steroidal AdvReac Bleeding Verified 03/30/17 01:36 Anti-Inflamma Home Meds: Home Meds ALPRAZolam [Xanax] 0.5 mg PO QID PRN 10/02/13 [History] Omeprazole [Prilosec] 20 mg PO BID 10/02/13 [History] levETIRAcetam [Keppra] 750 mg PO BID 10/02/13 [History] Escitalopram [Lexapro] 30 mg PO DAILY 07/11/14 [History] Estradiol 1 mg PO DAILY 08/18/15 [History] Linaclotide [Linzess] 290 mcg PO DAILY PRN 11/24/15 [History] SUMAtriptan [Imitrex] 1 tab PO ASDIRECTED PRN 04/23/16 [History] ARIPiprazole [Abilify] 5 mg PO DAILY 07/29/16 [History] Zolpidem Tartrate [Ambien] 5 mg PO BEDTIME PRN 10/15/16 [History] Nabumetone [Relafen] 750 mg PO BID 10/27/16 [History] lamoTRIgine [Lamotrigine] 25 mg PO BID 10/27/16 [History] Ranitidine HCl [Acid Control] 1 tab PO DAILY 01/06/17 [History] Propranolol [Inderal] 20 mg PO DAILY 01/18/17 [History] Mesalamine [Asacol] 800 mg PO TID 02/11/17 [History] oxyCODONE HCl/Acetaminophen [Percocet 5-325 mg Tablet] 2 tab PO Q4H PRN [History] Promethazine [Phenergan] 25 mg PO Q6H #30 tablet 03/25/17 [Rx] Past Medical History HEENT History: Reports: Allergic Rhinitis Cardiovascular History: Reports: None Respiratory History: Reports: Asthma Gastrointestinal History: Reports: Chronic Constipation, Inflammatory Bowel Disease, Other (See Below) Other Gastrointestinal History: COLITIS Genitourinary History: Reports: Renal Calculus 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: 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 Musculoskeletal History: Reports: Fibromyalgia, RA Neurological History: Reports: Migraines, Seizure Psychiatric History: Reports: Anxiety, Depression Endocrine/Metabolic History: Reports: Obesity/BMI 30+ Hematologic History: Reports: None Immunologic History: Reports: None Oncologic (Cancer) History: Reports: None Dermatologic History: Reports: None - Infectious Disease History Infectious Disease History: Reports: MRSA - Past Surgical History HEENT Surgical History: Reports: Other (See Below) GI Surgical History: Reports: Other (See Below) Other GI Surgeries/Procedures: bowel resection due to blockage ON 02-13-17 Musculoskeletal Surgical History: Reports: Joint Replacement Social & Family History - Family History Family Medical History: Noncontributory Cardiac: Reports: Hypertension Respiratory: Reports: None GI: Reports: Inflammatory Bowel Disease, Irritable Bowel Syndrome : Reports: None OBGYN: Reports: None Musculoskeletal: Reports: Fibromyalgia Neurological: Reports: None Psychiatric: Reports: Depression Endocrine/Metabolic: Reports: Obesity/MBI 30+ Hematologic: Reports: None Immunologic: Reports: None Dermatologic: Reports: None Oncologic: Reports: None - Tobacco Use Smoking Status *Q: Former Smoker Years of Tobacco use: 15 Packs/Tins Daily: 1 Used Tobacco, but Quit: Yes Month Tobacco Last Used: 2014 Second Hand Smoke Exposure: No - Caffeine Use Caffeine Use: Reports: None - Alcohol Use Days Per Week of Alcohol Use: 0 - Recreational Drug Use Recreational Drug Use: Yes Recreational Drug Type: Reports: Oxycodone - Living Situation & Occupation Living situation: Reports: , with Family Occupation: Unemployed ED ROS GENERAL - Review of Systems Review Of Systems: See Below Constitutional: Reports: No Symptoms HEENT: Reports: Other (photophobia, phonophobia.) Respiratory: Reports: No Symptoms Cardiovascular: Reports: No Symptoms Endocrine: Reports: No Symptoms GI/Abdominal: Reports: Nausea, Vomiting (x1) : Reports: No Symptoms Musculoskeletal: Reports: No Symptoms Skin: Reports: No Symptoms Neurological: Reports: Headache Psychiatric: Reports: No Symptoms Hematologic/Lymphatic: Reports: No Symptoms Immunologic: Reports: No Symptoms - Physical Exam Exam: See Below Exam Limited By: No Limitations General Appearance: Alert, WD/WN, No Apparent Distress, Obese Eye Exam: Bilateral Eye: EOMI, Normal Inspection, PERRL Ears: Normal External Exam, Normal Canal, Hearing Grossly Normal, Normal TMs Nose: Normal Inspection, Normal Mucosa, No Blood Throat/Mouth: Normal Inspection, Normal Lips, Normal Teeth, Normal Gums, Normal Oropharynx, Normal Voice, No Airway Compromise Head Exam: Atraumatic, Normocephalic Neck: Normal Inspection, Supple, Non-Tender, Full Range of Motion Respiratory/Chest: No Respiratory Distress, Lungs Clear, Normal Breath Sounds, No Accessory Muscle Use Cardiovascular: Normal Peripheral Pulses, Regular Rate, Rhythm, No Edema, No Gallop, No JVD, No Murmur, No Rub Neuro Exam (Abbreviated): Alert, Oriented, No Motor/Sensory Deficits Back Exam: Normal Inspection, Full Range of Motion Extremities: Normal Inspection, Normal Range of Motion, Non-Tender, No Pedal Edema, Normal Capillary Refill Psychiatric: Flat Affect Skin Exam: Warm, Dry, Intact, Normal Color, No Rash Course - Vital Signs Last Recorded V/S: Last Vital Signs Temp 97.2 F 03/30/17 01:34 Pulse 86 03/30/17 01:34 Resp 20 03/30/17 01:34 BP 160/110 H 03/30/17 01:34 Pulse Ox 96 03/30/17 01:34 - Orders/Labs/Meds Labs: Laboratory Tests 03/30/17 03/30/17 Range/Units 01:52 02:05 Urine Color Yellow (YELLOW) Urine Appearance Slightly cloudy (CLEAR) Urine pH 6.0 (4.5-8.0) Ur Specific [place] 1.019 (1.003-1.020) Urine Protein Negative (NEGATIVE) mg/dL Urine Glucose (UA) Negative (NEGATIVE) mg/dL Urine Ketones Negative (NEGATIVE) mg/dL Urine Occult Blood Negative (NEGATIVE) Urine Nitrite Negative (NEGATIVE) Urine Bilirubin Negative (NEGATIVE) Urine Urobilinogen 0.2 (0.2-1.0) EU/dL Ur Leukocyte Esterase Negative (NEGATIVE) Urine RBC Not seen (0-5) /HPF Urine WBC 0-5 (0-5) /HPF Ur Squamous Epith Cells Moderate H (NOT SEEN) /HPF Urine Bacteria Few H (NOT SEEN) /HPF Urine Mucus Moderate H (NOT SEEN) /HPF Urine Opiates Screen Negative (NEGATIVE) Ur Oxycodone Screen Negative (NEGATIVE) Urine Methadone Screen Negative (NEGATIVE) Ur Barbiturates Screen Negative (NEGATIVE) U Tricyclic Antidepress Negative (NEGATIVE) Ur Phencyclidine Scrn Negative (NEGATIVE) Ur Amphetamine Screen Negative (NEGATIVE) U Methamphetamines Scrn Negative (NEGATIVE) Urine MDMA Screen Negative (NEGATIVE) U Benzodiazepines Scrn Positive H (NEGATIVE) Urine Cocaine Screen Negative (NEGATIVE) U Marijuana (THC) Screen Positive H (NEGATIVE) Meds: Medications Discontinued Medications Generic Name Dose Route Start Last Admin Trade Name Freq PRN Reason Stop Dose Admin Hydromorphone HCl 0.5 mg 03/30/17 02:27 Dilaudid IM 03/30/17 02:28 ONETIME ONE Promethazine HCl 12.5 mg 03/30/17 02:28 Phenergan IM 03/30/17 02:29 NOW STA Departure - Departure Time of Disposition: 02:29 Disposition: Home, Self-Care 01 Condition: Good Clinical Impression: Migraine Qualifiers: Migraine type: without aura Status migrainosus presence: without status migrainosus Intractability: not intractable Qualified Code(s): G43.009 - Migraine without aura, not intractable, without status migrainosus - Discharge Information Instructions: Recurrent Migraine Headache, [id number] Referrals: PCP,None [Primary Care Provider] - Forms: ED Department Discharge Additional Instructions: Followup with your primary care provider Return to the ER for emergencies Increase fluids Go home and rest in a quite, cool, dark room Monistat 7 over the counter for vaginal itching - Assessment/Plan Plan: PLEASE SEE RN NOTE FOR PFSH.
[2017-03-30] MEDS ORDERED: HYDROmorphone 1 MG/ML Syringe IM ONE (02:27)
[2017-03-30] MEDS ORDERED: Promethazine 25 MG/ML SDV IM STA (02:28)
== END 2017-03-30 02:49 | disposition home or self-care (01) ==
LOC: CC.ED 01:33
DX: G43.009 Migraine without aura, not intractable, without status migrainosus (principal); J45.909 Unspecified asthma, uncomplicated; F41.9 Anxiety disorder, unspecified; F32.9 Major depressive disorder, single episode, unspecified; E66.9 Obesity, unspecified; Z87.891 Personal history of nicotine dependence; Z88.8 Allergy status to other drugs, medicaments and biological substances; Z88.1 Allergy status to other antibiotic agents; Z79.899 Other long term (current) drug therapy; M06.9 Rheumatoid arthritis, unspecified
CPT/HCPCS: 80305; 81001; 96372; 99283; J1170; J2550

== ENCOUNTER 2017-04-21 18:23 | Emergency (ER) | payer SELFPAY ==
[2017-04-21 18:28] VITALS: BP 156/111
[2017-04-21] MEDS ORDERED: Promethazine 25 MG/ML SDV IM ONE (18:37)
--- NOTE | 2017-04-28 14:01 | EDM.PDOC ---
ED HPI GENERAL MEDICAL PROBLEM - General Chief Complaint: Headache Stated Complaint: migraine Time Seen by Provider: 04/21/17 18:35 - History of Present Illness INITIAL COMMENTS - FREE TEXT/NARRATIVE: C/O migraine headache for 2 days Onset: Gradual Duration: Day(s): Location: Reports: Head Headache Pain Score (Numeric/FACES): 6 - Related Data Allergies Allergy/AdvReac Type Severity Reaction Status Date / Time ceftriaxone sodium Allergy Severe Difficulty Verified 04/21/17 18:25 [From Rocephin] Breathing milnacipran HCl Allergy Intermediate Hallucinati Verified 04/21/17 18:25 [From Savella] ons ondansetron HCl [From Zofran] Allergy Mild Hives Verified 04/21/17 18:25 acetaminophen Allergy Vomiting Verified 04/21/17 18:25 [From Excedrin Sinus Headache] calcium carbonate [From DHEA] Allergy Anxiety Verified 04/21/17 18:25 calcium phosphate,dibasic Allergy Anxiety Verified 04/21/17 18:25 [From DHEA] metoclopramide HCl Allergy Anxiety Verified 04/21/17 18:25 [From Reglan] phenylephrine HCl Allergy Vomiting Verified 04/21/17 18:25 [From Excedrin Sinus Headache] prasterone (DHEA) [From DHEA] Allergy Anxiety Verified 04/21/17 18:25 prednisone Allergy Other Verified 04/21/17 18:25 prochlorperazine Allergy Anxiety Verified 04/21/17 18:25 [From Compazine] prochlorperazine edisylate Allergy Anxiety Verified 04/21/17 18:25 [From Compazine] prochlorperazine maleate Allergy Anxiety Verified 04/21/17 18:25 [From Compazine] ketorolac [From Toradol] AdvReac Bleeding Verified 04/21/17 18:25 NSAIDS (Non-Steroidal AdvReac Bleeding Verified 04/21/17 18:25 Anti-Inflamma Home Meds: Home Meds ALPRAZolam [Xanax] 0.5 mg PO QID PRN 10/02/13 [History] Omeprazole [Prilosec] 20 mg PO BID 10/02/13 [History] levETIRAcetam [Keppra] 750 mg PO BID 10/02/13 [History] Escitalopram [Lexapro] 30 mg PO DAILY 07/11/14 [History] Estradiol 1 mg PO DAILY 08/18/15 [History] Linaclotide [Linzess] 290 mcg PO DAILY PRN 11/24/15 [History] SUMAtriptan [Imitrex] 1 tab PO ASDIRECTED PRN 04/23/16 [History] ARIPiprazole [Abilify] 5 mg PO DAILY 07/29/16 [History] Zolpidem Tartrate [Ambien] 5 mg PO BEDTIME PRN 10/15/16 [History] Nabumetone [Relafen] 750 mg PO BID 10/27/16 [History] lamoTRIgine [Lamotrigine] 25 mg PO BID 10/27/16 [History] Ranitidine HCl [Acid Control] 1 tab PO DAILY 01/06/17 [History] Propranolol [Inderal] 20 mg PO DAILY 01/18/17 [History] Mesalamine [Asacol] 800 mg PO TID 02/11/17 [History] oxyCODONE HCl/Acetaminophen [Percocet 5-325 mg Tablet] 2 tab PO Q4H PRN [History] Promethazine [Phenergan] 25 mg PO Q6H #30 tablet 03/25/17 [Rx] Past Medical History HEENT History: Reports: Allergic Rhinitis Cardiovascular History: Reports: None Respiratory History: Reports: Asthma Gastrointestinal History: Reports: Chronic Constipation, Inflammatory Bowel Disease, Other (See Below) Other Gastrointestinal History: COLITIS Genitourinary History: Reports: Renal Calculus 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: 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 Musculoskeletal History: Reports: Fibromyalgia, RA Neurological History: Reports: Migraines, Seizure Psychiatric History: Reports: Anxiety, Depression Endocrine/Metabolic History: Reports: Obesity/BMI 30+ Hematologic History: Reports: None Immunologic History: Reports: None Oncologic (Cancer) History: Reports: None Dermatologic History: Reports: None - Infectious Disease History Infectious Disease History: Reports: MRSA - Past Surgical History HEENT Surgical History: Reports: Other (See Below) GI Surgical History: Reports: Other (See Below) Other GI Surgeries/Procedures: bowel resection due to blockage ON 02-13-17 Musculoskeletal Surgical History: Reports: Joint Replacement Social & Family History - Family History Family Medical History: Noncontributory Cardiac: Reports: Hypertension Respiratory: Reports: None GI: Reports: Inflammatory Bowel Disease, Irritable Bowel Syndrome : Reports: None OBGYN: Reports: None Musculoskeletal: Reports: Fibromyalgia Neurological: Reports: None Psychiatric: Reports: Depression Endocrine/Metabolic: Reports: Obesity/MBI 30+ Hematologic: Reports: None Immunologic: Reports: None Dermatologic: Reports: None Oncologic: Reports: None - Tobacco Use Smoking Status *Q: Former Smoker Years of Tobacco use: 15 Packs/Tins Daily: 1 Used Tobacco, but Quit: Yes Month Tobacco Last Used: 5 years ago Second Hand Smoke Exposure: No - Caffeine Use Caffeine Use: Reports: None - Alcohol Use Days Per Week of Alcohol Use: 0 - Recreational Drug Use Recreational Drug Use: No Recreational Drug Type: Reports: Oxycodone - Living Situation & Occupation Living situation: Reports: , with Family Occupation: Unemployed ED ROS GENERAL - Review of Systems Review Of Systems: ROS reveals no pertinent complaints other than HPI. GI/Abdominal: Reports: Nausea - Physical Exam Exam: See Below Exam Limited By: Altered Mental Status Ears: Normal External Exam Nose: Normal Inspection Throat/Mouth: Normal Inspection Head Exam: Atraumatic Neck: Normal Inspection Respiratory/Chest: No Respiratory Distress Cardiovascular: Normal Peripheral Pulses GI/Abdominal: Normal Bowel Sounds (Female) Exam: Normal External Exam Rectal (Female) Exam: Normal Exam Neuro Exam (Abbreviated): Alert Course - Vital Signs Last Recorded V/S: Last Vital Signs Temp 99.0 F 04/21/17 18:26 Pulse 104 H 04/21/17 18:26 Resp 18 04/21/17 18:26 BP 156/111 H 04/21/17 18:26 Pulse Ox 99 04/21/17 18:26 - Orders/Labs/Meds Meds: Medications Discontinued Medications Generic Name Dose Route Start Last Admin Trade Name Tanmay PRN Reason Stop Dose Admin Promethazine HCl 25 mg 04/21/17 18:37 04/21/17 18:43 Phenergan IM 04/21/17 18:38 25 mg Q6H ONE Administration Departure - Departure Time of Disposition: 18:30 (Instructed the patient that I would not write her narcotics for her headach, she rfused NSAIDS stating they upset her stomack IM Phenergan given for nausea) Disposition: Home, Self-Care 01 Clinical Impression: Headache - Discharge Information Referrals: PCP,None [Primary Care Provider] - Forms: ED Department Discharge Additional Instructions: Follow up with your regular doctor. Continue to use your current medications for your headache.
== END 2017-04-21 18:48 | disposition home or self-care (01) ==
LOC: CC.ED 18:23
DX: R51 Headache (principal); J45.909 Unspecified asthma, uncomplicated; M06.9 Rheumatoid arthritis, unspecified; F41.9 Anxiety disorder, unspecified; F32.9 Major depressive disorder, single episode, unspecified; E66.9 Obesity, unspecified; Z68.35 Body mass index [BMI] 35.0-35.9, adult; Z88.1 Allergy status to other antibiotic agents; Z88.8 Allergy status to other drugs, medicaments and biological substances; Z79.899 Other long term (current) drug therapy; Z98.890 Other specified postprocedural states; Z87.891 Personal history of nicotine dependence
CPT/HCPCS: 96372; 99282; J2550

== ENCOUNTER 2017-06-23 11:58 | Emergency (ER) | payer SELFPAY ==
[2017-06-23] MEDS ORDERED: HYDROmorphone 1 MG/ML Syringe IM ONE (12:15)
[2017-06-23 12:16] VITALS: BP 127/55
[2017-06-23] MEDS ORDERED: Promethazine 25 MG/ML SDV IM STA (12:16)
--- NOTE | 2017-06-23 12:26 | EDM.PDOC ---
ED HPI GENERAL MEDICAL PROBLEM - General Chief Complaint: Headache Stated Complaint: MIGRAINE, VOMITING Time Seen by Provider: 06/23/17 12:15 Source of Information: Reports: Patient History Limitations: Reports: No Limitations - History of Present Illness INITIAL COMMENTS - FREE TEXT/NARRATIVE: This patient is a 42 year old female that presents to the ER. Patient reports since last night while at [employer] getting a migraine. She reports that she developed a migraine while there, then went home and went to bed. She reports she attempted to tae Imitrex this morning, but it did not help her migraine. Patient reports this feels exactly like her typical migraine with pain to the right behind the eyes, photophobia, phonophobia. Patient reports some nausea. She denies neck pain, neck stiffness, cp, soa, abd pain, urinary/ bowel changers, vomiting. Stable. Onset Date: 06/22/17 Location: Reports: Head Severity: Moderate Improves with: Reports: None Worsens with: Reports: None Associated Symptoms: Reports: Headaches. Denies: Confusion, Chest Pain, Cough, cough w sputum, Diaphoresis, Fever/Chills, Loss of Appetite, Malaise, Nausea/ Vomiting, Rash, Seizure, Shortness of Breath, Syncope, Weakness Head Pain Score (Numeric/FACES): 8 - Related Data Allergies Allergy/AdvReac Type Severity Reaction Status Date / Time ceftriaxone sodium Allergy Severe Difficulty Verified 06/23/17 12:03 [From Rocephin] Breathing milnacipran HCl Allergy Intermediate Hallucinati Verified 06/23/17 12:03 [From Savella] ons ondansetron HCl [From Zofran] Allergy Mild Hives Verified 06/23/17 12:03 acetaminophen Allergy Vomiting Verified 06/23/17 12:03 [From Excedrin Sinus Headache] calcium carbonate [From DHEA] Allergy Anxiety Verified 06/23/17 12:03 calcium phosphate,dibasic Allergy Anxiety Verified 06/23/17 12:03 [From DHEA] metoclopramide HCl Allergy Anxiety Verified 06/23/17 12:03 [From Reglan] phenylephrine HCl Allergy Vomiting Verified 06/23/17 12:03 [From Excedrin Sinus Headache] prasterone (DHEA) [From DHEA] Allergy Anxiety Verified 06/23/17 12:03 prednisone Allergy Other Verified 06/23/17 12:03 prochlorperazine Allergy Anxiety Verified 04/21/17 18:25 [From Compazine] prochlorperazine edisylate Allergy Anxiety Verified 04/21/17 18:25 [From Compazine] prochlorperazine maleate Allergy Anxiety Verified 04/21/17 18:25 [From Compazine] ketorolac [From Toradol] AdvReac Bleeding Verified 04/21/17 18:25 NSAIDS (Non-Steroidal AdvReac Bleeding Verified 04/21/17 18:25 Anti-Inflamma Home Meds: Home Meds ALPRAZolam [Xanax] 0.5 mg PO QID PRN 10/02/13 [History] Omeprazole [Prilosec] 20 mg PO BID 10/02/13 [History] levETIRAcetam [Keppra] 750 mg PO BID 10/02/13 [History] Escitalopram [Lexapro] 30 mg PO DAILY 07/11/14 [History] Estradiol 1 mg PO DAILY 08/18/15 [History] Linaclotide [Linzess] 290 mcg PO DAILY PRN 11/24/15 [History] SUMAtriptan [Imitrex] 1 tab PO ASDIRECTED PRN 04/23/16 [History] Zolpidem Tartrate [Ambien] 5 mg PO BEDTIME PRN 10/15/16 [History] Ranitidine HCl [Acid Control] 1 tab PO DAILY 01/06/17 [History] Propranolol [Inderal] 20 mg PO DAILY 01/18/17 [History] Promethazine [Phenergan] 25 mg PO Q6H #30 tablet 03/25/17 [Rx] Past Medical History HEENT History: Reports: Allergic Rhinitis Cardiovascular History: Reports: None Respiratory History: Reports: Asthma Gastrointestinal History: Reports: Chronic Constipation, Inflammatory Bowel Disease, Other (See Below) Other Gastrointestinal History: COLITIS Genitourinary History: Reports: Renal Calculus 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 Musculoskeletal History: Reports: Fibromyalgia, RA Neurological History: Reports: Migraines, Seizure Psychiatric History: Reports: Anxiety, Depression Endocrine/Metabolic History: Reports: Obesity/BMI 30+ Hematologic History: Reports: None Immunologic History: Reports: None Oncologic (Cancer) History: Reports: None Dermatologic History: Reports: None - Infectious Disease History Infectious Disease History: Reports: MRSA - Past Surgical History HEENT Surgical History: Reports: Other (See Below) GI Surgical History: Reports: Other (See Below) Other GI Surgeries/Procedures: bowel resection due to blockage ON 02-13-17 Musculoskeletal Surgical History: Reports: Joint Replacement Social & Family History - Family History Family Medical History: Noncontributory Cardiac: Reports: Hypertension Respiratory: Reports: None GI: Reports: Inflammatory Bowel Disease, Irritable Bowel Syndrome : Reports: None OBGYN: Reports: None Musculoskeletal: Reports: Fibromyalgia Neurological: Reports: None Psychiatric: Reports: Depression Endocrine/Metabolic: Reports: Obesity/MBI 30+ Hematologic: Reports: None Immunologic: Reports: None Dermatologic: Reports: None Oncologic: Reports: None - Tobacco Use Smoking Status *Q: Former Smoker Years of Tobacco use: 15 Packs/Tins Daily: 1 Used Tobacco, but Quit: Yes Month Tobacco Last Used: 5 years ago Second Hand Smoke Exposure: No - Caffeine Use Caffeine Use: Reports: None - Alcohol Use Days Per Week of Alcohol Use: 0 - Recreational Drug Use Recreational Drug Use: No Recreational Drug Type: Reports: Oxycodone - Living Situation & Occupation Living situation: Reports: , with Family Occupation: Unemployed ED ROS GENERAL - Review of Systems Review Of Systems: See Below Constitutional: Reports: No Symptoms HEENT: Reports: Other (photophobia, phonophobia.) Respiratory: Reports: No Symptoms Cardiovascular: Reports: No Symptoms Endocrine: Reports: No Symptoms GI/Abdominal: Reports: Nausea : Reports: No Symptoms Musculoskeletal: Reports: No Symptoms Skin: Reports: No Symptoms Neurological: Reports: Headache. Denies: Confusion, Dizziness, Numbness, Paresthesia, Seizure, Syncope, Tingling, Tremors, Trouble Speaking, Difficulty Walking, Weakness, Change in Speech, Gait Disturbance Psychiatric: Reports: No Symptoms Hematologic/Lymphatic: Reports: No Symptoms Immunologic: Reports: No Symptoms - Physical Exam Exam: See Below Exam Limited By: No Limitations General Appearance: Alert, WD/WN, No Apparent Distress, Other (sunglasses on) Eye Exam: Bilateral Eye: EOMI, PERRL Ears: Normal External Exam, Normal Canal, Hearing Grossly Normal, Normal TMs Nose: Normal Inspection, Normal Mucosa, No Blood Throat/Mouth: Normal Inspection, Normal Lips, Normal Teeth, Normal Gums, Normal Oropharynx, Normal Voice, No Airway Compromise Head Exam: Atraumatic, Normocephalic Neck: Normal Inspection, Supple, Non-Tender, Full Range of Motion Respiratory/Chest: No Respiratory Distress, Lungs Clear, Normal Breath Sounds, No Accessory Muscle Use Cardiovascular: Normal Peripheral Pulses, Regular Rate, Rhythm, No Edema, No Gallop, No JVD, No Murmur, No Rub GI/Abdominal: Normal Bowel Sounds, Soft, Non-Tender, No Organomegaly, No Distention, No Abnormal Bruit, No Mass, Pelvis Stable Neuro Exam (Abbreviated): Alert, Oriented, CN II-XII Intact, Normal Cognition, Normal Gait, No Motor/Sensory Deficits Back Exam: Normal Inspection, Full Range of Motion Extremities: Normal Inspection, Normal Range of Motion, Non-Tender, No Pedal Edema, Normal Capillary Refill Psychiatric: Normal Affect, Normal Mood Skin Exam: Warm, Dry, Intact, Normal Color, No Rash Course - Vital Signs Last Recorded V/S: Last Vital Signs Temp 96.9 F 06/23/17 12:08 Pulse 86 06/23/17 12:08 Resp 16 06/23/17 12:08 BP 127/55 L 06/23/17 12:08 Pulse Ox 98 06/23/17 12:08 - Orders/Labs/Meds Meds: Medications Discontinued Medications Generic Name Dose Route Start Last Admin Trade Name Freq PRN Reason Stop Dose Admin Hydromorphone HCl 1 mg 06/23/17 12:15 Dilaudid IM 06/23/17 12:16 ONETIME ONE Promethazine HCl 25 mg 06/23/17 12:16 Phenergan IM 06/23/17 12:17 NOW STA Departure - Departure Time of Disposition: 12:41 Disposition: Home, Self-Care 01 Condition: Good Clinical Impression: Migraine Qualifiers: Migraine type: without aura Status migrainosus presence: without status migrainosus Intractability: not intractable Qualified Code(s): G43.009 - Migraine without aura, not intractable, without status migrainosus - Discharge Information Instructions: Recurrent Migraine Headache, [id number] Forms: ED Department Discharge Additional Instructions: Followup with your primary care provider Return to the ER for worsening of condition or any emergent concerns Increase fluids Go home to a cool, quiet, dark room and rest. - Assessment/Plan Plan: PLEASE SEE RN NOTE FOR PFSH.
== END 2017-06-23 12:56 | disposition home or self-care (01) ==
LOC: CC.ED 11:58
DX: G43.009 Migraine without aura, not intractable, without status migrainosus (principal); J45.909 Unspecified asthma, uncomplicated; F41.9 Anxiety disorder, unspecified; E66.9 Obesity, unspecified; F32.9 Major depressive disorder, single episode, unspecified; Z88.8 Allergy status to other drugs, medicaments and biological substances; Z88.1 Allergy status to other antibiotic agents; Z88.3 Allergy status to other anti-infective agents; Z79.899 Other long term (current) drug therapy; Z87.891 Personal history of nicotine dependence
CPT/HCPCS: 96372; 99282; J1170; J2550

== ENCOUNTER 2017-06-27 16:03 | Emergency (ER) | payer SELFPAY ==
[2017-06-27] MEDS ORDERED: Promethazine 25 MG/ML SDV IM STA (16:26)
[2017-06-27] MEDS ORDERED: Ketorolac 60 MG/2 ML SDV IM ONE (16:26)
--- NOTE | 2017-06-27 16:45 | EDM.PDOC ---
ED HPI GENERAL MEDICAL PROBLEM - General Chief Complaint: Headache Stated Complaint: MIGRAINE, NAUSEA Time Seen by Provider: 06/27/17 16:15 Source of Information: Reports: Patient History Limitations: Reports: No Limitations - History of Present Illness INITIAL COMMENTS - FREE TEXT/NARRATIVE: Iain is a 42 yo female who presents to the ER with complaints of a migraine headache. She has migraine headaches frequently and states she took some promethazine at home but threw it up. She admits it is a typical migraine for her. Denies any new onset of symptoms. Headaches started this morning. States her blood pressure always elevates when she has a migraine. Admits normally her blood pressure is fine. Onset: Today Location: Reports: Head Associated Symptoms: Reports: Nausea/Vomiting Temporal Head Pain Score (Numeric/FACES): 9 - Related Data Allergies Allergy/AdvReac Type Severity Reaction Status Date / Time ceftriaxone sodium Allergy Severe Difficulty Verified 06/27/17 16:09 [From Rocephin] Breathing milnacipran HCl Allergy Intermediate Hallucinati Verified 06/27/17 16:09 [From Savella] ons ondansetron HCl [From Zofran] Allergy Mild Hives Verified 06/27/17 16:09 acetaminophen Allergy Vomiting Verified 06/27/17 16:09 [From Excedrin Sinus Headache] calcium carbonate [From DHEA] Allergy Anxiety Verified 06/27/17 16:09 calcium phosphate,dibasic Allergy Anxiety Verified 06/27/17 16:09 [From DHEA] metoclopramide HCl Allergy Anxiety Verified 06/27/17 16:09 [From Reglan] phenylephrine HCl Allergy Vomiting Verified 06/27/17 16:09 [From Excedrin Sinus Headache] prasterone (DHEA) [From DHEA] Allergy Anxiety Verified 06/27/17 16:09 prednisone Allergy Other Verified 06/27/17 16:09 prochlorperazine Allergy Anxiety Verified 06/27/17 16:09 [From Compazine] prochlorperazine edisylate Allergy Anxiety Verified 06/27/17 16:09 [From Compazine] prochlorperazine maleate Allergy Anxiety Verified 06/27/17 16:09 [From Compazine] ketorolac [From Toradol] AdvReac Bleeding Verified 06/27/17 16:09 NSAIDS (Non-Steroidal AdvReac Bleeding Verified 06/27/17 16:09 Anti-Inflamma Home Meds: Home Meds ALPRAZolam [Xanax] 0.5 mg PO QID PRN 10/02/13 [History] Omeprazole [Prilosec] 20 mg PO BID 10/02/13 [History] levETIRAcetam [Keppra] 750 mg PO BID 10/02/13 [History] Escitalopram [Lexapro] 30 mg PO DAILY 07/11/14 [History] Estradiol 1 mg PO DAILY 08/18/15 [History] Linaclotide [Linzess] 290 mcg PO DAILY PRN 11/24/15 [History] SUMAtriptan [Imitrex] 1 tab PO ASDIRECTED PRN 04/23/16 [History] Zolpidem Tartrate [Ambien] 5 mg PO BEDTIME PRN 10/15/16 [History] Ranitidine HCl [Acid Control] 1 tab PO DAILY 01/06/17 [History] Propranolol [Inderal] 20 mg PO DAILY 01/18/17 [History] Promethazine [Phenergan] 25 mg PO Q6H #30 tablet 03/25/17 [Rx] Past Medical History HEENT History: Reports: Allergic Rhinitis Cardiovascular History: Reports: None Respiratory History: Reports: Asthma Gastrointestinal History: Reports: Chronic Constipation, Inflammatory Bowel Disease, Other (See Below) Other Gastrointestinal History: COLITIS Genitourinary History: Reports: Renal Calculus 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 Musculoskeletal History: Reports: Fibromyalgia, RA Neurological History: Reports: Migraines, Seizure Psychiatric History: Reports: Anxiety, Depression Endocrine/Metabolic History: Reports: Obesity/BMI 30+ Hematologic History: Reports: None Immunologic History: Reports: None Oncologic (Cancer) History: Reports: None Dermatologic History: Reports: None - Infectious Disease History Infectious Disease History: Reports: MRSA - Past Surgical History HEENT Surgical History: Reports: Other (See Below) GI Surgical History: Reports: Other (See Below) Other GI Surgeries/Procedures: bowel resection due to blockage ON 02-13-17 Musculoskeletal Surgical History: Reports: Joint Replacement Social & Family History - Family History Family Medical History: Noncontributory Cardiac: Reports: Hypertension Respiratory: Reports: None GI: Reports: Inflammatory Bowel Disease, Irritable Bowel Syndrome : Reports: None OBGYN: Reports: None Musculoskeletal: Reports: Fibromyalgia Neurological: Reports: None Psychiatric: Reports: Depression Endocrine/Metabolic: Reports: Obesity/MBI 30+ Hematologic: Reports: None Immunologic: Reports: None Dermatologic: Reports: None Oncologic: Reports: None - Tobacco Use Smoking Status *Q: Former Smoker Years of Tobacco use: 15 Packs/Tins Daily: 1 Used Tobacco, but Quit: Yes Month Tobacco Last Used: 2011 Second Hand Smoke Exposure: No - Caffeine Use Caffeine Use: Reports: None - Alcohol Use Days Per Week of Alcohol Use: 0 - Recreational Drug Use Recreational Drug Use: No Recreational Drug Type: Reports: Oxycodone - Living Situation & Occupation Living situation: Reports: , with Family Occupation: Unemployed ED ROS GENERAL - Review of Systems Review Of Systems: ROS reveals no pertinent complaints other than HPI. Constitutional: Reports: No Symptoms HEENT: Reports: Other (photophobia) Neurological: Reports: Headache. Denies: Confusion, Dizziness, Trouble Speaking , Change in Speech - Physical Exam Exam: See Below Exam Limited By: No Limitations General Appearance: Alert, Mild Distress Eye Exam: Bilateral Eye: EOMI, Normal Inspection, PERRL Ears: Normal External Exam, Normal Canal, Hearing Grossly Normal, Normal TMs Nose: Normal Inspection, No Blood Throat/Mouth: Normal Inspection, Normal Lips, Normal Gums, Normal Oropharynx, Normal Voice, No Airway Compromise Head Exam: Atraumatic, Normocephalic Neck: Normal Inspection, Supple, Non-Tender Respiratory/Chest: No Respiratory Distress, Lungs Clear Cardiovascular: Regular Rate, Rhythm, No Murmur Neuro Exam (Abbreviated): Alert, Oriented, CN II-XII Intact, Normal Cognition, Normal Reflexes, No Motor/Sensory Deficits Psychiatric: Normal Affect, Normal Mood Skin Exam: Warm, Dry, Intact Course - Vital Signs Last Recorded V/S: Last Vital Signs Temp 98.0 F 06/27/17 16:10 Pulse 91 06/27/17 16:10 Resp 16 06/27/17 16:10 BP 160/103 H 06/27/17 16:10 Pulse Ox 97 06/27/17 16:10 - Orders/Labs/Meds Meds: Medications Discontinued Medications Generic Name Dose Route Start Last Admin Trade Name Freq PRN Reason Stop Dose Admin Ketorolac Tromethamine 60 mg 06/27/17 16:26 06/27/17 16:34 Toradol IM 06/27/17 16:27 60 mg ONETIME ONE Administration Promethazine HCl 25 mg 06/27/17 16:26 06/27/17 16:34 Phenergan IM 06/27/17 16:27 25 mg NOW STA Administration Departure - Departure Time of Disposition: 16:45 Disposition: Home, Self-Care 01 Condition: Good Clinical Impression: Migraine Qualifiers: Migraine type: without aura Status migrainosus presence: without status migrainosus Intractability: not intractable Qualified Code(s): G43.009 - Migraine without aura, not intractable, without status migrainosus - Discharge Information Instructions: Migraine Headache Referrals: PCP,None [Primary Care Provider] - Forms: ED Department Discharge Additional Instructions: 1) Go directly home and rest. 2) Push fluids 3) Follow up with primary in regards to elevated blood pressure reading. 4) If any complications or concerns, return for reevaluation. - Problem List & Annotations (1) Migraine SNOMED Code(s): 49058149 Code(s): G43.909 - MIGRAINE, UNSP, NOT INTRACTABLE, WITHOUT STATUS MIGRAINOSUS Status: Chronic Priority: Medium Current Visit: No Onset Date: ~10/27/16 (2) Elevated blood pressure reading SNOMED Code(s): 24894511 Code(s): R03.0 - ELEVATED BLOOD-PRESSURE READING, W/O DIAGNOSIS OF HTN Status: Acute Current Visit: Yes - Problem List Review Problem List Initiated/Reviewed/Updated: Yes
[2017-06-27 16:50] VITALS: BP 137/74
== END 2017-06-27 16:52 | disposition home or self-care (01) ==
LOC: CC.ED 16:03
DX: G43.009 Migraine without aura, not intractable, without status migrainosus (principal); J45.909 Unspecified asthma, uncomplicated; M06.9 Rheumatoid arthritis, unspecified; F32.9 Major depressive disorder, single episode, unspecified; F41.9 Anxiety disorder, unspecified; E66.9 Obesity, unspecified; Z79.899 Other long term (current) drug therapy; Z88.8 Allergy status to other drugs, medicaments and biological substances; Z87.891 Personal history of nicotine dependence; Z68.37 Body mass index [BMI] 37.0-37.9, adult
CPT/HCPCS: 96372; 99282; J1885; J2550

== ENCOUNTER 2017-06-28 16:23 | Emergency (ER) | payer SELFPAY ==
[2017-06-28 16:29] VITALS: BP 132/71
[2017-06-28] MEDS ORDERED: Haloperidol Lactate 5 MG/ML SDV IM ONE ×2 (16:42→16:46)
--- NOTE | 2017-06-28 17:20 | EDM.PDOC ---
ED HPI GENERAL MEDICAL PROBLEM - General Chief Complaint: Headache Stated Complaint: Migraine, nausea Time Seen by Provider: 06/28/17 16:40 Source of Information: Reports: Patient History Limitations: Reports: No Limitations - History of Present Illness INITIAL COMMENTS - FREE TEXT/NARRATIVE: Chronic migraine headache with pain and nausea. Was seen in ER yesterday and recieved Toradol and Phenergan. She states minimal resoluution and presents again today for pain medication. She states has taken Imitrex at home and frequently visit ER for narcotic analgesics. Onset: Gradual Onset Date: 06/27/17 Onset Time: 16:00 Duration: Waxing/Waning Quality: Reports: Ache, Burning, Throbbing Severity: Severe Improves with: Reports: None Worsens with: Reports: Movement Associated Symptoms: Reports: No Other Symptoms Headache Pain Score (Numeric/FACES): 9 - Related Data Allergies Allergy/AdvReac Type Severity Reaction Status Date / Time ceftriaxone sodium Allergy Severe Difficulty Verified 06/28/17 16:30 [From Rocephin] Breathing milnacipran HCl Allergy Intermediate Hallucinati Verified 06/28/17 16:30 [From Savella] ons ondansetron HCl [From Zofran] Allergy Mild Hives Verified 06/28/17 16:30 acetaminophen Allergy Vomiting Verified 06/28/17 16:30 [From Excedrin Sinus Headache] calcium carbonate [From DHEA] Allergy Anxiety Verified 06/28/17 16:30 calcium phosphate,dibasic Allergy Anxiety Verified 06/28/17 16:30 [From DHEA] metoclopramide HCl Allergy Anxiety Verified 06/28/17 16:30 [From Reglan] phenylephrine HCl Allergy Vomiting Verified 06/28/17 16:30 [From Excedrin Sinus Headache] prasterone (DHEA) [From DHEA] Allergy Anxiety Verified 06/28/17 16:30 prednisone Allergy Other Verified 06/28/17 16:30 prochlorperazine Allergy Anxiety Verified 06/28/17 16:30 [From Compazine] prochlorperazine edisylate Allergy Anxiety Verified 06/28/17 16:30 [From Compazine] prochlorperazine maleate Allergy Anxiety Verified 06/28/17 16:30 [From Compazine] ketorolac [From Toradol] AdvReac Bleeding Verified 06/28/17 16:30 NSAIDS (Non-Steroidal AdvReac Bleeding Verified 06/28/17 16:30 Anti-Inflamma Home Meds: Home Meds ALPRAZolam [Xanax] 0.5 mg PO QID PRN 10/02/13 [History] Omeprazole [Prilosec] 20 mg PO BID 10/02/13 [History] levETIRAcetam [Keppra] 750 mg PO BID 10/02/13 [History] Escitalopram [Lexapro] 30 mg PO DAILY 07/11/14 [History] Estradiol 1 mg PO DAILY 08/18/15 [History] Linaclotide [Linzess] 290 mcg PO DAILY PRN 11/24/15 [History] SUMAtriptan [Imitrex] 1 tab PO ASDIRECTED PRN 04/23/16 [History] Zolpidem Tartrate [Ambien] 5 mg PO BEDTIME PRN 10/15/16 [History] Ranitidine HCl [Acid Control] 1 tab PO DAILY 01/06/17 [History] Propranolol [Inderal] 20 mg PO DAILY 01/18/17 [History] Promethazine [Phenergan] 25 mg PO Q6H #30 tablet 03/25/17 [Rx] Past Medical History HEENT History: Reports: Allergic Rhinitis Cardiovascular History: Reports: None Respiratory History: Reports: Asthma Gastrointestinal History: Reports: Chronic Constipation, Inflammatory Bowel Disease, Other (See Below) Other Gastrointestinal History: COLITIS Genitourinary History: Reports: Renal Calculus 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: 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 Musculoskeletal History: Reports: Fibromyalgia, RA Neurological History: Reports: Migraines, Seizure Psychiatric History: Reports: Anxiety, Depression Endocrine/Metabolic History: Reports: Obesity/BMI 30+ Hematologic History: Reports: None Immunologic History: Reports: None Oncologic (Cancer) History: Reports: None Dermatologic History: Reports: None - Infectious Disease History Infectious Disease History: Reports: MRSA - Past Surgical History HEENT Surgical History: Reports: Other (See Below) GI Surgical History: Reports: Other (See Below) Other GI Surgeries/Procedures: bowel resection due to blockage ON 02-13-17 Musculoskeletal Surgical History: Reports: Joint Replacement Social & Family History - Family History Family Medical History: Noncontributory Cardiac: Reports: Hypertension Respiratory: Reports: None GI: Reports: Inflammatory Bowel Disease, Irritable Bowel Syndrome : Reports: None OBGYN: Reports: None Musculoskeletal: Reports: Fibromyalgia Neurological: Reports: None Psychiatric: Reports: Depression Endocrine/Metabolic: Reports: Obesity/MBI 30+ Hematologic: Reports: None Immunologic: Reports: None Dermatologic: Reports: None Oncologic: Reports: None - Tobacco Use Smoking Status *Q: Former Smoker Years of Tobacco use: 15 Packs/Tins Daily: 1 Used Tobacco, but Quit: Yes Month Tobacco Last Used: 2010 Second Hand Smoke Exposure: No - Caffeine Use Caffeine Use: Reports: None - Alcohol Use Days Per Week of Alcohol Use: 0 - Recreational Drug Use Recreational Drug Use: No Recreational Drug Type: Reports: Oxycodone - Living Situation & Occupation Living situation: Reports: , with Family Occupation: Unemployed ED ROS GENERAL - Review of Systems Review Of Systems: See Below Constitutional: Reports: No Symptoms HEENT: Reports: Other (Migraine headache) Respiratory: Reports: No Symptoms Cardiovascular: Reports: No Symptoms Endocrine: Reports: No Symptoms GI/Abdominal: Reports: No Symptoms : Reports: No Symptoms Musculoskeletal: Reports: No Symptoms Skin: Reports: No Symptoms Neurological: Reports: Headache. Denies: Confusion, Dizziness, Numbness, Paresthesia, Seizure, Syncope, Tingling, Tremors, Trouble Speaking, Difficulty Walking, Weakness, Change in Speech, Gait Disturbance Psychiatric: Reports: Mood Lability Hematologic/Lymphatic: Reports: No Symptoms Immunologic: Reports: No Symptoms - Physical Exam Exam: See Below Exam Limited By: No Limitations General Appearance: Alert, WD/WN, Mild Distress, Obese Eye Exam: Bilateral Eye: EOMI, Normal Fundi, Normal Inspection, PERRL Ears: Normal External Exam, Normal Canal, Hearing Grossly Normal, Normal TMs Nose: Normal Inspection, Normal Mucosa Throat/Mouth: Normal Inspection, Normal Lips, Normal Teeth, Normal Gums, Normal Oropharynx, Normal Voice, No Airway Compromise Head Exam: Atraumatic, Normocephalic Neck: Normal Inspection, Supple, Non-Tender, Full Range of Motion Respiratory/Chest: No Respiratory Distress, Lungs Clear, Normal Breath Sounds, No Accessory Muscle Use, Chest Non-Tender Cardiovascular: Normal Peripheral Pulses, Regular Rate, Rhythm, No Edema, No JVD , No Murmur, No Rub GI/Abdominal: Soft, Non-Tender (Female) Exam: Deferred Rectal (Female) Exam: Deferred Neuro Exam (Abbreviated): Alert, Oriented, CN II-XII Intact, Normal Cognition, Normal Gait, Normal Reflexes, No Motor/Sensory Deficits DTR: 2+: Patella (R), Patella (L) Back Exam: Normal Inspection, Full Range of Motion Extremities: Normal Inspection, Normal Range of Motion, Non-Tender, No Pedal Edema, Normal Capillary Refill Psychiatric: Depressed Mood, Flat Affect Skin Exam: Dry, Intact, Normal Color, No Rash Course - Vital Signs Last Recorded V/S: Last Vital Signs Temp 36.6 C 06/28/17 16:24 Pulse 94 06/28/17 16:24 Resp 20 06/28/17 16:24 BP 132/71 06/28/17 16:24 Pulse Ox 95 06/28/17 16:24 - Orders/Labs/Meds Meds: Medications Discontinued Medications Generic Name Dose Route Start Last Admin Trade Name Freq PRN Reason Stop Dose Admin Haloperidol Lactate 1 mg 06/28/17 16:42 06/28/17 16:51 Haldol IM 06/28/17 16:43 Not Given ONETIME ONE Haloperidol Lactate 2 mg 06/28/17 16:46 06/28/17 16:52 Haldol IM 06/28/17 16:47 2 mg ONETIME ONE Administration Departure - Departure Time of Disposition: 17:19 Disposition: Home, Self-Care 01 Condition: Good Clinical Impression: Migraine - Discharge Information Referrals: PCP,None [Primary Care Provider] - Additional Instructions: Continue medications as previously prescribed. Rest Fluids No driving Follow up with PCP prn. MLP Sign Off - Signature Requirements MLP Sign Off: No - Problem List & Annotations (1) Migraine SNOMED Code(s): 02170952 Code(s): G43.909 - MIGRAINE, UNSP, NOT INTRACTABLE, WITHOUT STATUS MIGRAINOSUS Status: Chronic Priority: Medium Current Visit: Yes Onset Date: ~10/27/16 - Assessment/Plan Assessment:: Chronic Pain Migraine Headache Plan: Haldol 2 mg IM now Continue medications as previously prescribed. Rest fluids No driving Follow up with PCP prn.
== END 2017-06-28 17:20 | disposition left against medical advice (07) ==
LOC: CC.ED 16:23
DX: G43.909 Migraine, unspecified, not intractable, without status migrainosus (principal); G89.29 Other chronic pain; J45.909 Unspecified asthma, uncomplicated; M06.9 Rheumatoid arthritis, unspecified; F41.9 Anxiety disorder, unspecified; E66.9 Obesity, unspecified; F32.9 Major depressive disorder, single episode, unspecified; Z88.6 Allergy status to analgesic agent; Z87.891 Personal history of nicotine dependence; Z79.899 Other long term (current) drug therapy; Z88.1 Allergy status to other antibiotic agents
CPT/HCPCS: 96372; 99282; J1630

== ENCOUNTER 2017-07-03 09:45 | Emergency (ER) | payer SELFPAY ==
[2017-07-03 10:03] VITALS: BP 145/98
[2017-07-03] MEDS ORDERED: Ketorolac 60 MG/2 ML SDV IM ONE (10:19)
[2017-07-03] MEDS ORDERED: diphenhydrAMINE 50 MG/ML SDV IM ONE (10:19)
[2017-07-03] MEDS ORDERED: Ketorolac 60 MG/2 ML SDV ONE (10:19)
--- NOTE | 2017-07-03 10:19 | EDM.PDOC ---
ED HPI GENERAL MEDICAL PROBLEM - General Chief Complaint: Headache Stated Complaint: MIGRAINE Time Seen by Provider: 07/03/17 10:00 Source of Information: Reports: Patient History Limitations: Reports: No Limitations - History of Present Illness INITIAL COMMENTS - FREE TEXT/NARRATIVE: Woke this AM with migraine. Took her imitrex at 0400 and again at 0600 without relief. Did take phenergan at 0630 without helping. States that she thinks it is this time of the year with the weather changes. Does see Dr. Pitts neurologist and they have not changed any meds at this time. Has been in the ER 4 times in the last 10 days for migraines. Onset: Sudden Onset Date: 07/03/17 Onset Time: 04:00 Duration: Constant Location: Reports: Head Headache Pain Score (Numeric/FACES): 8 - Related Data Allergies Allergy/AdvReac Type Severity Reaction Status Date / Time ceftriaxone sodium Allergy Severe Difficulty Verified 07/03/17 09:51 [From Rocephin] Breathing milnacipran HCl Allergy Intermediate Hallucinati Verified 07/03/17 09:51 [From Savella] ons ondansetron HCl [From Zofran] Allergy Mild Hives Verified 07/03/17 09:51 acetaminophen Allergy Vomiting Verified 07/03/17 09:51 [From Excedrin Sinus Headache] calcium carbonate [From DHEA] Allergy Anxiety Verified 07/03/17 09:51 calcium phosphate,dibasic Allergy Anxiety Verified 07/03/17 09:51 [From DHEA] metoclopramide HCl Allergy Anxiety Verified 07/03/17 09:51 [From Reglan] phenylephrine HCl Allergy Vomiting Verified 07/03/17 09:51 [From Excedrin Sinus Headache] prasterone (DHEA) [From DHEA] Allergy Anxiety Verified 07/03/17 09:51 prednisone Allergy Other Verified 07/03/17 09:51 prochlorperazine Allergy Anxiety Verified 07/03/17 09:51 [From Compazine] prochlorperazine edisylate Allergy Anxiety Verified 07/03/17 09:51 [From Compazine] prochlorperazine maleate Allergy Anxiety Verified 07/03/17 09:51 [From Compazine] ketorolac [From Toradol] AdvReac Bleeding Verified 07/03/17 09:51 NSAIDS (Non-Steroidal AdvReac Bleeding Verified 07/03/17 09:51 Anti-Inflamma Home Meds: Home Meds ALPRAZolam [Xanax] 0.5 mg PO QID PRN 10/02/13 [History] Omeprazole [Prilosec] 20 mg PO BID 10/02/13 [History] levETIRAcetam [Keppra] 750 mg PO BID 10/02/13 [History] Escitalopram [Lexapro] 30 mg PO DAILY 07/11/14 [History] Estradiol 1 mg PO DAILY 08/18/15 [History] Linaclotide [Linzess] 290 mcg PO DAILY PRN 11/24/15 [History] SUMAtriptan [Imitrex] 1 tab PO ASDIRECTED PRN 04/23/16 [History] Zolpidem Tartrate [Ambien] 5 mg PO BEDTIME PRN 10/15/16 [History] Ranitidine HCl [Acid Control] 1 tab PO DAILY 01/06/17 [History] Propranolol [Inderal] 20 mg PO DAILY 01/18/17 [History] Promethazine [Phenergan] 25 mg PO Q6H #30 tablet 03/25/17 [Rx] Past Medical History HEENT History: Reports: Allergic Rhinitis Cardiovascular History: Reports: None Respiratory History: Reports: Asthma Gastrointestinal History: Reports: Chronic Constipation, Inflammatory Bowel Disease, Other (See Below) Other Gastrointestinal History: COLITIS Genitourinary History: Reports: Renal Calculus 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: 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 Musculoskeletal History: Reports: Fibromyalgia, RA Neurological History: Reports: Migraines, Seizure Psychiatric History: Reports: Anxiety, Depression Endocrine/Metabolic History: Reports: Obesity/BMI 30+ Hematologic History: Reports: None Immunologic History: Reports: None Oncologic (Cancer) History: Reports: None Dermatologic History: Reports: None - Infectious Disease History Infectious Disease History: Reports: MRSA - Past Surgical History HEENT Surgical History: Reports: Other (See Below) GI Surgical History: Reports: Other (See Below) Other GI Surgeries/Procedures: bowel resection due to blockage ON 02-13-17 Musculoskeletal Surgical History: Reports: Joint Replacement Social & Family History - Family History Family Medical History: Noncontributory Cardiac: Reports: Hypertension Respiratory: Reports: None GI: Reports: Inflammatory Bowel Disease, Irritable Bowel Syndrome : Reports: None OBGYN: Reports: None Musculoskeletal: Reports: Fibromyalgia Neurological: Reports: None Psychiatric: Reports: Depression Endocrine/Metabolic: Reports: Obesity/MBI 30+ Hematologic: Reports: None Immunologic: Reports: None Dermatologic: Reports: None Oncologic: Reports: None - Tobacco Use Smoking Status *Q: Former Smoker Years of Tobacco use: 15 Packs/Tins Daily: 1 Used Tobacco, but Quit: Yes Month Tobacco Last Used: 6 YEARS Second Hand Smoke Exposure: No - Caffeine Use Caffeine Use: Reports: None - Alcohol Use Days Per Week of Alcohol Use: 0 - Recreational Drug Use Recreational Drug Use: No Recreational Drug Type: Reports: Oxycodone - Living Situation & Occupation Living situation: Reports: , with Family Occupation: Unemployed ED ROS GENERAL - Review of Systems Review Of Systems: See Below Constitutional: Denies: Fever, Chills HEENT: Reports: Other (photophobia) Respiratory: Reports: No Symptoms Cardiovascular: Reports: No Symptoms GI/Abdominal: Reports: No Symptoms Musculoskeletal: Reports: No Symptoms Skin: Reports: No Symptoms Neurological: Reports: Headache. Denies: Dizziness, Seizure - Physical Exam Exam: See Below Exam Limited By: No Limitations General Appearance: Alert, WD/WN, Mild Distress Ears: Normal External Exam, Normal Canal Nose: Normal Inspection Throat/Mouth: Normal Inspection, Normal Oropharynx Head Exam: Atraumatic, Normocephalic Neck: Normal Inspection, Supple, Non-Tender Respiratory/Chest: No Respiratory Distress, Lungs Clear Cardiovascular: Regular Rate, Rhythm GI/Abdominal: Normal Bowel Sounds, Soft Extremities: No Pedal Edema Skin Exam: Warm, Dry, Intact Course - Vital Signs Last Recorded V/S: Last Vital Signs Temp 99 F 07/03/17 09:53 Pulse 106 H 07/03/17 09:53 Resp 18 07/03/17 09:53 BP 145/98 H 07/03/17 09:53 Pulse Ox 98 07/03/17 09:53 - Orders/Labs/Meds Meds: Medications Discontinued Medications Generic Name Dose Route Start Last Admin Trade Name Tanmay PRN Reason Stop Dose Admin Diphenhydramine HCl 25 mg 07/03/17 10:19 07/03/17 10:31 Benadryl IM 07/03/17 10:20 25 mg ONETIME ONE Administration Ketorolac Tromethamine 60 mg 07/03/17 10:19 07/03/17 10:32 Toradol IM 07/03/17 10:20 60 mg ONETIME ONE Administration Ketorolac Tromethamine Confirm 07/03/17 10:19 07/03/17 10:32 Toradol Administered 07/03/17 10:20 Not Given Dose 60 mg .ROUTE .STK-MED ONE Promethazine HCl 25 mg 07/03/17 10:22 07/03/17 10:31 Phenergan IM 07/03/17 10:23 25 mg NOW ONE Administration Departure - Departure Time of Disposition: 10:26 Disposition: Home, Self-Care 01 Condition: Good Clinical Impression: Migraine Qualifiers: Migraine type: without aura Status migrainosus presence: without status migrainosus Intractability: not intractable Qualified Code(s): G43.009 - Migraine without aura, not intractable, without status migrainosus - Discharge Information Instructions: Recurrent Migraine Headache, [id number] Referrals: Provider,Unknown [Primary Care Provider] - Forms: ED Department Discharge Additional Instructions: Contact your neurologist and Primary care provider about increasing headaches Go home to rest - Problem List & Annotations (1) Migraine SNOMED Code(s): 99757159 Code(s): G43.909 - MIGRAINE, UNSP, NOT INTRACTABLE, WITHOUT STATUS MIGRAINOSUS Status: Acute Priority: High Qualifiers: Migraine type: without aura Status migrainosus presence: without status migrainosus Intractability: not intractable Qualified Code(s): G43.009 - Migraine without aura, not intractable, without status migrainosus - Problem List Review Problem List Initiated/Reviewed/Updated: Yes
[2017-07-03] MEDS ORDERED: Promethazine 25 MG/ML SDV IM ONE (10:22)
== END 2017-07-03 10:40 | disposition home or self-care (01) ==
LOC: CC.ED 09:45
DX: G43.009 Migraine without aura, not intractable, without status migrainosus (principal); J45.909 Unspecified asthma, uncomplicated; F41.9 Anxiety disorder, unspecified; F32.9 Major depressive disorder, single episode, unspecified; E66.9 Obesity, unspecified; Z87.891 Personal history of nicotine dependence; Z88.8 Allergy status to other drugs, medicaments and biological substances; Z88.6 Allergy status to analgesic agent; Z79.899 Other long term (current) drug therapy
CPT/HCPCS: 96372; 99282; J1200; J1885; J2550

== ENCOUNTER 2017-07-11 15:38 | Emergency (ER) | payer BC ==
[2017-07-11 15:49] VITALS: BP 140/87
[2017-07-11] MEDS ORDERED: Ketorolac 60 MG/2 ML SDV IM ONE (15:57)
[2017-07-11] MEDS ORDERED: Promethazine 25 MG/ML SDV IM ONE (15:58)
--- NOTE | 2017-07-11 16:58 | EDM.PDOC ---
ED HPI GENERAL MEDICAL PROBLEM - General Chief Complaint: Headache Stated Complaint: migraine Time Seen by Provider: 07/11/17 15:59 Source of Information: Reports: Patient History Limitations: Reports: No Limitations - History of Present Illness INITIAL COMMENTS - FREE TEXT/NARRATIVE: Patient presents with usual complaints of a headache. States has been getting them more frequently, been seen multiple times for this. Feels it is related more to not dealing well with anxiety/depression. She also has been having more trouble with her fibromyalgia. Patient is on Keppra for her migraines but doesn't feel it is helping her all that much any more. No neurological concerns or atypical features. Onset: Today, Gradual Duration: Hour(s): Location: Reports: Head Quality: Reports: Throbbing Severity: Moderate Improves with: Reports: None Associated Symptoms: Reports: Nausea/Vomiting Treatments CARBIDER: Reports: Other Medication(s) Other Treatments CARBIDER: imitrex Headache Pain Score (Numeric/FACES): 8 - Related Data Allergies Allergy/AdvReac Type Severity Reaction Status Date / Time ceftriaxone sodium Allergy Severe Difficulty Verified 07/11/17 15:49 [From Rocephin] Breathing milnacipran HCl Allergy Intermediate Hallucinati Verified 07/11/17 15:49 [From Savella] ons ondansetron HCl [From Zofran] Allergy Mild Hives Verified 07/11/17 15:49 acetaminophen Allergy Vomiting Verified 07/11/17 15:49 [From Excedrin Sinus Headache] calcium carbonate [From DHEA] Allergy Anxiety Verified 07/11/17 15:49 calcium phosphate,dibasic Allergy Anxiety Verified 07/11/17 15:49 [From DHEA] metoclopramide HCl Allergy Anxiety Verified 07/11/17 15:49 [From Reglan] phenylephrine HCl Allergy Vomiting Verified 07/11/17 15:49 [From Excedrin Sinus Headache] prasterone (DHEA) [From DHEA] Allergy Anxiety Verified 07/11/17 15:49 prednisone Allergy Other Verified 07/11/17 15:49 prochlorperazine Allergy Anxiety Verified 07/11/17 15:49 [From Compazine] prochlorperazine edisylate Allergy Anxiety Verified 07/11/17 15:49 [From Compazine] prochlorperazine maleate Allergy Anxiety Verified 07/11/17 15:49 [From Compazine] ketorolac [From Toradol] AdvReac Bleeding Verified 07/11/17 15:49 NSAIDS (Non-Steroidal AdvReac Bleeding Verified 07/11/17 15:49 Anti-Inflamma Home Meds: Home Meds ALPRAZolam [Xanax] 0.5 mg PO QID PRN 10/02/13 [History] Omeprazole [Prilosec] 20 mg PO BID 10/02/13 [History] levETIRAcetam [Keppra] 750 mg PO BID 10/02/13 [History] Escitalopram [Lexapro] 30 mg PO DAILY 07/11/14 [History] Estradiol 1 mg PO DAILY 08/18/15 [History] Linaclotide [Linzess] 290 mcg PO DAILY PRN 11/24/15 [History] SUMAtriptan [Imitrex] 1 tab PO ASDIRECTED PRN 04/23/16 [History] Zolpidem Tartrate [Ambien] 5 mg PO BEDTIME PRN 10/15/16 [History] Ranitidine HCl [Acid Control] 1 tab PO DAILY 01/06/17 [History] Propranolol [Inderal] 20 mg PO DAILY 01/18/17 [History] Promethazine [Phenergan] 25 mg PO Q6H #30 tablet 03/25/17 [Rx] Past Medical History HEENT History: Reports: Allergic Rhinitis Cardiovascular History: Reports: None Respiratory History: Reports: Asthma Gastrointestinal History: Reports: Chronic Constipation, Inflammatory Bowel Disease, Other (See Below) Other Gastrointestinal History: COLITIS Genitourinary History: Reports: Renal Calculus 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 Musculoskeletal History: Reports: Fibromyalgia, RA Neurological History: Reports: Migraines, Seizure Psychiatric History: Reports: Anxiety, Depression Endocrine/Metabolic History: Reports: Obesity/BMI 30+ Hematologic History: Reports: None Immunologic History: Reports: None Oncologic (Cancer) History: Reports: None Dermatologic History: Reports: None - Infectious Disease History Infectious Disease History: Reports: MRSA - Past Surgical History HEENT Surgical History: Reports: Other (See Below) GI Surgical History: Reports: Other (See Below) Other GI Surgeries/Procedures: bowel resection due to blockage ON 02-13-17 Musculoskeletal Surgical History: Reports: Joint Replacement Social & Family History - Family History Family Medical History: Noncontributory Cardiac: Reports: Hypertension Respiratory: Reports: None GI: Reports: Inflammatory Bowel Disease, Irritable Bowel Syndrome : Reports: None OBGYN: Reports: None Musculoskeletal: Reports: Fibromyalgia Neurological: Reports: None Psychiatric: Reports: Depression Endocrine/Metabolic: Reports: Obesity/MBI 30+ Hematologic: Reports: None Immunologic: Reports: None Dermatologic: Reports: None Oncologic: Reports: None - Tobacco Use Smoking Status *Q: Former Smoker Years of Tobacco use: 15 Packs/Tins Daily: 1 Used Tobacco, but Quit: Yes Month Tobacco Last Used: 12/2011 Second Hand Smoke Exposure: No - Caffeine Use Caffeine Use: Reports: None - Alcohol Use Days Per Week of Alcohol Use: 0 - Recreational Drug Use Recreational Drug Use: Yes Recreational Drug Type: Reports: Dilaudid Recreational Drug Use Frequency: Binges - Living Situation & Occupation Living situation: Reports: , with Family Occupation: Unemployed ED ROS GENERAL - Review of Systems Review Of Systems: See Below Constitutional: Denies: Fever, Chills, Malaise, Weakness, Decreased Appetite HEENT: Reports: Rhinitis, Vertigo Respiratory: Denies: Shortness of Breath, Cough Cardiovascular: Denies: Chest Pain Endocrine: Reports: Fatigue GI/Abdominal: Reports: Nausea. Denies: Abdominal Pain, Vomiting : Reports: No Symptoms Neurological: Reports: Headache Psychiatric: Reports: No Symptoms - Physical Exam Exam: See Below Exam Limited By: No Limitations General Appearance: Alert, WD/WN, No Apparent Distress Ears: Normal External Exam, Normal TMs Nose: Normal Inspection, Normal Mucosa, No Blood Throat/Mouth: Normal Inspection, Normal Oropharynx Head Exam: Normocephalic Neck: Normal Inspection, Supple, Non-Tender Respiratory/Chest: No Respiratory Distress, Normal Breath Sounds Cardiovascular: Regular Rate, Rhythm GI/Abdominal: Normal Bowel Sounds, Soft, Non-Tender Neuro Exam (Abbreviated): Alert, Oriented Psychiatric: Normal Affect Skin Exam: Warm, Dry Course - Vital Signs Last Recorded V/S: Last Vital Signs Temp 98.8 F 07/11/17 15:47 Pulse 88 07/11/17 15:47 Resp 20 07/11/17 15:47 BP 140/87 07/11/17 15:47 Pulse Ox 94 L 07/11/17 15:47 - Orders/Labs/Meds Meds: Medications Discontinued Medications Generic Name Dose Route Start Last Admin Trade Name Freq PRN Reason Stop Dose Admin Ketorolac Tromethamine 60 mg 07/11/17 15:57 07/11/17 16:13 Toradol IM 07/11/17 15:58 60 mg ONETIME ONE Administration Promethazine HCl 25 mg 07/11/17 15:58 07/11/17 16:11 Phenergan IM 07/11/17 15:59 25 mg Q6H ONE Administration Departure - Departure Time of Disposition: 16:56 Disposition: Home, Self-Care 01 Condition: Good Clinical Impression: Headache - Discharge Information Referrals: PCP,None [Primary Care Provider] - Forms: ED Department Discharge Additional Instructions: 1. Push fluids 2. Usual meds as directed 3. Arrange new consult with neurology 4. Address further issues with psychology for your anxiety and depression 5. Follow up with usual provider as needed
== END 2017-07-11 17:02 | disposition home or self-care (01) ==
LOC: CC.ED 15:38
DX: R51 Headache (principal); E66.9 Obesity, unspecified; F32.9 Major depressive disorder, single episode, unspecified; F41.9 Anxiety disorder, unspecified; M06.9 Rheumatoid arthritis, unspecified; J45.909 Unspecified asthma, uncomplicated; Z88.1 Allergy status to other antibiotic agents; Z88.6 Allergy status to analgesic agent; Z88.8 Allergy status to other drugs, medicaments and biological substances; Z79.899 Other long term (current) drug therapy; Z87.891 Personal history of nicotine dependence; Z68.38 Body mass index [BMI] 38.0-38.9, adult
CPT/HCPCS: 96372; 99283; J1885; J2550

== ENCOUNTER 2017-07-22 16:54 | Emergency (ER) | payer BC ==
[2017-07-22 17:06] VITALS: BP 157/101
--- NOTE | 2017-07-22 17:29 | EDM.PDOC ---
ED HPI GENERAL MEDICAL PROBLEM - General Chief Complaint: Respiratory Problem Stated Complaint: COUGH/SINUS/HEADACHE Time Seen by Provider: 07/22/17 17:20 Source of Information: Reports: Patient History Limitations: Reports: No Limitations - History of Present Illness INITIAL COMMENTS - FREE TEXT/NARRATIVE: States has had some cough and sinus pressure for the last several days and today was notified that her nasal swab was positive for MRSA so she came in to the ER because she felt that it was suddenly getting worse. Dr. Gooden office had prescribed her Bactroban but she hasn't started that yet. No fever. Does have a harsh dry cough. Maxillary sinuses feel plugged but not the frontal areas. Onset: Gradual Location: Reports: Face, Chest Associated Symptoms: Reports: Cough, Headaches. Denies: cough w sputum Chest Pain Score (Numeric/FACES): 8 - Related Data Allergies Allergy/AdvReac Type Severity Reaction Status Date / Time ceftriaxone sodium Allergy Severe Difficulty Verified 07/22/17 17:06 [From Rocephin] Breathing milnacipran HCl Allergy Intermediate Hallucinati Verified 07/22/17 17:06 [From Savella] ons ondansetron HCl [From Zofran] Allergy Mild Hives Verified 07/22/17 17:06 acetaminophen Allergy Vomiting Verified 07/22/17 17:06 [From Excedrin Sinus Headache] calcium carbonate [From DHEA] Allergy Anxiety Verified 07/22/17 17:06 calcium phosphate,dibasic Allergy Anxiety Verified 07/22/17 17:06 [From DHEA] metoclopramide HCl Allergy Anxiety Verified 07/22/17 17:06 [From Reglan] phenylephrine HCl Allergy Vomiting Verified 07/22/17 17:06 [From Excedrin Sinus Headache] prasterone (DHEA) [From DHEA] Allergy Anxiety Verified 07/22/17 17:06 prednisone Allergy Other Verified 07/22/17 17:06 prochlorperazine Allergy Anxiety Verified 07/22/17 17:06 [From Compazine] prochlorperazine edisylate Allergy Anxiety Verified 07/22/17 17:06 [From Compazine] prochlorperazine maleate Allergy Anxiety Verified 07/22/17 17:06 [From Compazine] ketorolac [From Toradol] AdvReac Bleeding Verified 07/22/17 17:06 NSAIDS (Non-Steroidal AdvReac Bleeding Verified 07/22/17 17:06 Anti-Inflamma Home Meds: Home Meds ALPRAZolam [Xanax] 0.5 mg PO QID PRN 10/02/13 [History] Omeprazole [Prilosec] 20 mg PO BID 10/02/13 [History] levETIRAcetam [Keppra] 750 mg PO BID 10/02/13 [History] Escitalopram [Lexapro] 30 mg PO DAILY 07/11/14 [History] Estradiol 1 mg PO DAILY 08/18/15 [History] Linaclotide [Linzess] 290 mcg PO DAILY PRN 11/24/15 [History] SUMAtriptan [Imitrex] 1 tab PO ASDIRECTED PRN 04/23/16 [History] Zolpidem Tartrate [Ambien] 5 mg PO BEDTIME PRN 10/15/16 [History] Ranitidine HCl [Acid Control] 1 tab PO DAILY 01/06/17 [History] Propranolol [Inderal] 20 mg PO DAILY 01/18/17 [History] Promethazine [Phenergan] 25 mg PO Q6H #30 tablet 03/25/17 [Rx] Mupirocin Oint [Bactroban Oint] 22 gm NASBOTH BID 07/22/17 [History] Past Medical History HEENT History: Reports: Allergic Rhinitis Cardiovascular History: Reports: None Respiratory History: Reports: Asthma Gastrointestinal History: Reports: Chronic Constipation, Inflammatory Bowel Disease, Other (See Below) Other Gastrointestinal History: COLITIS Genitourinary History: Reports: Renal Calculus 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: 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 Musculoskeletal History: Reports: Fibromyalgia, RA Neurological History: Reports: Migraines, Seizure Psychiatric History: Reports: Anxiety, Depression Endocrine/Metabolic History: Reports: Obesity/BMI 30+ Hematologic History: Reports: None Immunologic History: Reports: None Oncologic (Cancer) History: Reports: None Dermatologic History: Reports: None - Infectious Disease History Infectious Disease History: Reports: MRSA - Past Surgical History HEENT Surgical History: Reports: Other (See Below) GI Surgical History: Reports: Other (See Below) Other GI Surgeries/Procedures: bowel resection due to blockage ON 02-13-17 Musculoskeletal Surgical History: Reports: Joint Replacement Social & Family History - Family History Family Medical History: Noncontributory Cardiac: Reports: Hypertension Respiratory: Reports: None GI: Reports: Inflammatory Bowel Disease, Irritable Bowel Syndrome : Reports: None OBGYN: Reports: None Musculoskeletal: Reports: Fibromyalgia Neurological: Reports: None Psychiatric: Reports: Depression Endocrine/Metabolic: Reports: Obesity/MBI 30+ Hematologic: Reports: None Immunologic: Reports: None Dermatologic: Reports: None Oncologic: Reports: None - Tobacco Use Smoking Status *Q: Former Smoker Years of Tobacco use: 15 Packs/Tins Daily: 1 Used Tobacco, but Quit: Yes Month Tobacco Last Used: 5 YEARS AGO Second Hand Smoke Exposure: No - Caffeine Use Caffeine Use: Reports: Soda - Alcohol Use Days Per Week of Alcohol Use: 0 - Recreational Drug Use Recreational Drug Use: No Recreational Drug Type: Reports: Dilaudid Recreational Drug Use Frequency: Binges - Living Situation & Occupation Living situation: Reports: , with Family Occupation: Unemployed ED ROS GENERAL - Review of Systems Review Of Systems: See Below Constitutional: Reports: Weakness, Fatigue. Denies: Fever, Chills HEENT: Reports: Sinus Problem Respiratory: Reports: Cough. Denies: Shortness of Breath, Sputum Cardiovascular: Denies: Chest Pain GI/Abdominal: Denies: Constipation, Diarrhea : Reports: Incontinence (with coughing) Skin: Reports: No Symptoms Neurological: Reports: No Symptoms ED EXAM, GENERAL - Physical Exam Exam: See Below Exam Limited By: No Limitations General Appearance: Alert, WD/WN, Mild Distress Ears: Normal External Exam, Normal Canal, Normal TMs Nose: Normal Inspection Throat/Mouth: Normal Inspection, Normal Oropharynx, Normal Voice Head: Atraumatic Neck: Normal Inspection, Supple, Non-Tender Respiratory/Chest: No Respiratory Distress, Lungs Clear, Normal Breath Sounds, Chest Non-Tender Cardiovascular: Normal Peripheral Pulses, Regular Rate, Rhythm, No Edema Course - Vital Signs Last Recorded V/S: Last Vital Signs Temp 98.1 F 07/22/17 17:00 Pulse 94 07/22/17 17:00 Resp 16 07/22/17 17:00 BP 157/101 H 07/22/17 17:00 Pulse Ox 96 07/22/17 17:00 Departure - Departure Time of Disposition: 17:24 Disposition: Home, Self-Care 01 Clinical Impression: Sinusitis - Discharge Information Forms: ED Department Discharge Additional Instructions: Bactrim DS twice a day for 10 days Follow up with your primary care provider if not improving Push fluids as much as possible Tylenol or advil as needed for pain Use cough suppressants that you have as needed - Problem List & Annotations (1) Sinusitis SNOMED Code(s): 63955620 Code(s): J32.9 - CHRONIC SINUSITIS, UNSPECIFIED Status: Acute Priority: High Qualifiers: Sinusitis location: maxillary Chronicity: acute Recurrence: not specified as recurrent Qualified Code(s): J01.00 - Acute maxillary sinusitis, unspecified - Problem List Review Problem List Initiated/Reviewed/Updated: Yes
== END 2017-07-22 17:30 | disposition home or self-care (01) ==
LOC: CC.ED 16:54
DX: J32.9 Chronic sinusitis, unspecified (principal); E66.9 Obesity, unspecified; F32.9 Major depressive disorder, single episode, unspecified; F41.9 Anxiety disorder, unspecified; Z87.891 Personal history of nicotine dependence; Z79.899 Other long term (current) drug therapy; Z88.6 Allergy status to analgesic agent; Z88.8 Allergy status to other drugs, medicaments and biological substances
CPT/HCPCS: 99282

== ENCOUNTER 2017-08-04 14:15 | Emergency (ER) | payer BC ==
[2017-08-04 14:29] VITALS: BP 131/86
[2017-08-04] MEDS ORDERED: Ondansetron 4 MG/2 ML SDV IM STA (14:42)
--- NOTE | 2017-08-04 14:45 | EDM.PDOC ---
ED HPI GENERAL MEDICAL PROBLEM - General Chief Complaint: General Stated Complaint: MIGRAINE/PUKING Time Seen by Provider: 08/04/17 14:36 Source of Information: Reports: Patient History Limitations: Reports: No Limitations - History of Present Illness INITIAL COMMENTS - FREE TEXT/NARRATIVE: This patient is a 42 year old female that presents to the ER. Patient is well known to the department and comes in very frequently for migraines and other pain related complaints. Today she presents with migraine that started earlier today, she took Imitrex and it did not work. Patient reports global headache. Patient reports photophobia and phonophobia. She reports this feels like her typical migraines. I discussed with the patient her amount of visits to the ER and amount of narcotic use in the ER. I offered her Tylenol, Toradol, Motrin, Excedrin; she has refused all. She requested something for nausea, will give Zofran. She asked for a muscle relaxer, I will not give or prescribe this for migraine. She understands. She is educated to followup with a neurologist. No neurological deficits. Stroke Score 0. GCS 15. Onset: Today Onset Date: 08/04/17 Location: Reports: Head Quality: Reports: Throbbing Severity: Mild Improves with: Reports: None Worsens with: Reports: None Associated Symptoms: Reports: Nausea/Vomiting. Denies: Confusion, Chest Pain, Cough, cough w sputum, Diaphoresis, Fever/Chills, Headaches, Loss of Appetite, Malaise, Rash, Seizure, Shortness of Breath, Syncope, Weakness Headache Pain Score (Numeric/FACES): 6 - Related Data Allergies Allergy/AdvReac Type Severity Reaction Status Date / Time ceftriaxone sodium Allergy Severe Difficulty Verified 08/04/17 14:31 [From Rocephin] Breathing milnacipran HCl Allergy Intermediate Hallucinati Verified 08/04/17 14:31 [From Savella] ons ondansetron HCl [From Zofran] Allergy Mild Hives Verified 08/04/17 14:31 acetaminophen Allergy Vomiting Verified 08/04/17 14:31 [From Excedrin Sinus Headache] calcium carbonate [From DHEA] Allergy Anxiety Verified 08/04/17 14:31 calcium phosphate,dibasic Allergy Anxiety Verified 08/04/17 14:31 [From DHEA] metoclopramide HCl Allergy Anxiety Verified 08/04/17 14:31 [From Reglan] phenylephrine HCl Allergy Vomiting Verified 08/04/17 14:31 [From Excedrin Sinus Headache] prasterone (DHEA) [From DHEA] Allergy Anxiety Verified 08/04/17 14:31 prednisone Allergy Other Verified 08/04/17 14:31 prochlorperazine Allergy Anxiety Verified 08/04/17 14:31 [From Compazine] prochlorperazine edisylate Allergy Anxiety Verified 08/04/17 14:31 [From Compazine] prochlorperazine maleate Allergy Anxiety Verified 08/04/17 14:31 [From Compazine] ketorolac [From Toradol] AdvReac Bleeding Verified 08/04/17 14:31 NSAIDS (Non-Steroidal AdvReac Bleeding Verified 08/04/17 14:31 Anti-Inflamma Home Meds: Home Meds ALPRAZolam [Xanax] 0.5 mg PO QID PRN 10/02/13 [History] Omeprazole [Prilosec] 20 mg PO BID 10/02/13 [History] levETIRAcetam [Keppra] 750 mg PO BID 10/02/13 [History] Escitalopram [Lexapro] 30 mg PO DAILY 07/11/14 [History] Estradiol 1 mg PO DAILY 08/18/15 [History] Linaclotide [Linzess] 290 mcg PO DAILY PRN 11/24/15 [History] SUMAtriptan [Imitrex] 1 tab PO ASDIRECTED PRN 04/23/16 [History] Zolpidem Tartrate [Ambien] 5 mg PO BEDTIME PRN 10/15/16 [History] Ranitidine HCl [Acid Control] 1 tab PO DAILY 01/06/17 [History] Propranolol [Inderal] 20 mg PO DAILY 01/18/17 [History] Promethazine [Phenergan] 25 mg PO Q6H #30 tablet 03/25/17 [Rx] Mupirocin Oint [Bactroban Oint] 22 gm NASBOTH BID 07/22/17 [History] Past Medical History HEENT History: Reports: Allergic Rhinitis Cardiovascular History: Reports: None Respiratory History: Reports: Asthma Gastrointestinal History: Reports: Chronic Constipation, Inflammatory Bowel Disease, Other (See Below) Other Gastrointestinal History: COLITIS Genitourinary History: Reports: Renal Calculus 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: 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 Musculoskeletal History: Reports: Fibromyalgia, RA Neurological History: Reports: Migraines, Seizure Psychiatric History: Reports: Anxiety, Depression Endocrine/Metabolic History: Reports: Obesity/BMI 30+ Hematologic History: Reports: None Immunologic History: Reports: None Oncologic (Cancer) History: Reports: None Dermatologic History: Reports: None - Infectious Disease History Infectious Disease History: Reports: MRSA - Past Surgical History HEENT Surgical History: Reports: Other (See Below) GI Surgical History: Reports: Other (See Below) Other GI Surgeries/Procedures: bowel resection due to blockage ON 02-13-17 Musculoskeletal Surgical History: Reports: Joint Replacement Social & Family History - Family History Family Medical History: Noncontributory Cardiac: Reports: Hypertension Respiratory: Reports: None GI: Reports: Inflammatory Bowel Disease, Irritable Bowel Syndrome : Reports: None OBGYN: Reports: None Musculoskeletal: Reports: Fibromyalgia Neurological: Reports: None Psychiatric: Reports: Depression Endocrine/Metabolic: Reports: Obesity/MBI 30+ Hematologic: Reports: None Immunologic: Reports: None Dermatologic: Reports: None Oncologic: Reports: None - Tobacco Use Smoking Status *Q: Former Smoker Years of Tobacco use: 15 Packs/Tins Daily: 1 Used Tobacco, but Quit: Yes Month Tobacco Last Used: 5 YEARS AGO Second Hand Smoke Exposure: No - Caffeine Use Caffeine Use: Reports: Soda - Alcohol Use Days Per Week of Alcohol Use: 0 - Recreational Drug Use Recreational Drug Use: No Recreational Drug Type: Reports: Dilaudid Recreational Drug Use Frequency: Binges - Living Situation & Occupation Living situation: Reports: , with Family Occupation: Unemployed ED ROS GENERAL - Review of Systems Review Of Systems: See Below Constitutional: Reports: No Symptoms HEENT: Reports: Other (photophobia, phonophobia. ) Respiratory: Reports: No Symptoms Cardiovascular: Reports: No Symptoms Endocrine: Reports: No Symptoms GI/Abdominal: Reports: No Symptoms : Reports: No Symptoms Musculoskeletal: Reports: No Symptoms Skin: Reports: No Symptoms Neurological: Reports: No Symptoms Psychiatric: Reports: No Symptoms Hematologic/Lymphatic: Reports: No Symptoms Immunologic: Reports: No Symptoms ED EXAM, GENERAL - Physical Exam Exam: See Below Exam Limited By: No Limitations General Appearance: Alert, WD/WN, No Apparent Distress Eye Exam: Bilateral Eye: EOMI, Normal Inspection, PERRL Ears: Normal External Exam, Normal Canal, Hearing Grossly Normal, Normal TMs Ear Exam: Bilateral Ear: Auricle Normal, Canal Normal, TM normal Nose: Normal Inspection, Normal Mucosa, No Blood Throat/Mouth: Normal Inspection, Normal Lips, Normal Teeth, Normal Gums, Normal Oropharynx, Normal Voice, No Airway Compromise Head: Atraumatic, Normocephalic Neck: Normal Inspection, Supple, Non-Tender, Full Range of Motion Respiratory/Chest: No Respiratory Distress, Lungs Clear, Normal Breath Sounds, No Accessory Muscle Use Cardiovascular: Normal Peripheral Pulses, Regular Rate, Rhythm, No Edema, No Gallop, No JVD, No Murmur, No Rub Peripheral Pulses: 2+: Radial (L), Radial (R), Posterior Tibial (L), Posterior Tibial (R) GI/Abdominal: Soft, Non-Tender Back Exam: Normal Inspection, Full Range of Motion Extremities: Normal Inspection, Normal Range of Motion, Non-Tender, No Pedal Edema, Normal Capillary Refill Neurological: Alert, Oriented, CN II-XII Intact, Normal Cognition, Normal Gait, No Motor/Sensory Deficits Psychiatric: Normal Affect, Normal Mood Skin Exam: Warm, Dry, Intact, Normal Color, No Rash Lymphatic: No Adenopathy Course - Vital Signs Last Recorded V/S: Last Vital Signs Temp 98.2 F 08/04/17 14:23 Pulse 87 08/04/17 14:23 Resp 18 08/04/17 14:23 BP 131/86 08/04/17 14:23 Pulse Ox 97 08/04/17 14:23 - Orders/Labs/Meds Meds: Medications Discontinued Medications Generic Name Dose Route Start Last Admin Trade Name Tanmay PRN Reason Stop Dose Admin Ondansetron HCl 4 mg 08/04/17 14:42 08/04/17 14:50 Zofran IM 08/04/17 14:43 4 mg NOW STA Administration Departure - Departure Time of Disposition: 14:44 Disposition: Home, Self-Care 01 Condition: Good Clinical Impression: Migraine - Discharge Information Instructions: Migraine Headache, [id number] Referrals: Provider,Unknown [Primary Care Provider] - Forms: ED Department Discharge Additional Instructions: Followup with your primary care provider Followup with a neurologist Increase fluids Go home and rest - Assessment/Plan Plan: PLEASE SEE RN NOTE FOR PFSH.
== END 2017-08-04 14:55 | disposition home or self-care (01) ==
LOC: CC.ED 14:15
DX: G43.909 Migraine, unspecified, not intractable, without status migrainosus (principal); Z88.8 Allergy status to other drugs, medicaments and biological substances; Z88.6 Allergy status to analgesic agent; Z79.899 Other long term (current) drug therapy; Z87.891 Personal history of nicotine dependence; Z88.1 Allergy status to other antibiotic agents
CPT/HCPCS: 96372; 99282; J2405

== ENCOUNTER 2017-10-25 09:35 | Emergency (ER) | payer BC, MEDICARE ==
[2017-10-25 09:44] VITALS: BP 155/108
--- NOTE | 2017-10-25 10:17 | EDM.PDOC ---
ED HPI GENERAL MEDICAL PROBLEM - General Chief Complaint: Skin Complaint Stated Complaint: rash Time Seen by Provider: 10/25/17 10:08 Source of Information: Reports: Patient - History of Present Illness INITIAL COMMENTS - FREE TEXT/NARRATIVE: Iain is a 42 year old female who presents to the clinic with complaints of genital herpes and a rash to her left anterior neck. She reports she was recently diagnosed with genital herpes. She has been treated with Valtrex and topical lidocaine for pain. She reports that her ulcerations have not improved with the Valtrex and she ran out of medication. She has a small reddened area to her left anterior neck that she would also like looked at. She is concerned it is related to her herpes. She reports it has been there two days. She reports it itches. She has been taking Benadryl for itching. She basically comes in today for a refill on her Valtrex and lidocaine. She reports pain with urination and defecation. No other associated symptoms. She reports she still has open areas. She is scheduled to follow up with OBGYN next week. 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: Other Medication(s) (benadryl, valtrex, lidocaine) Generalized Pain Score (Numeric/FACES): 8 - Related Data Allergies Allergy/AdvReac Type Severity Reaction Status Date / Time ceftriaxone sodium Allergy Severe Difficulty Verified 10/25/17 09:45 [From Rocephin] Breathing milnacipran HCl Allergy Intermediate Hallucinati Verified 10/25/17 09:45 [From Savella] ons ondansetron HCl [From Zofran] Allergy Mild Hives Verified 10/25/17 09:45 acetaminophen Allergy Vomiting Verified 10/25/17 09:45 [From Excedrin Sinus Headache] calcium carbonate [From DHEA] Allergy Anxiety Verified 10/25/17 09:45 calcium phosphate,dibasic Allergy Anxiety Verified 10/25/17 09:45 [From DHEA] metoclopramide HCl Allergy Anxiety Verified 10/25/17 09:45 [From Reglan] phenylephrine HCl Allergy Vomiting Verified 10/25/17 09:45 [From Excedrin Sinus Headache] prasterone (DHEA) [From DHEA] Allergy Anxiety Verified 10/25/17 09:45 prednisone Allergy Other Verified 10/25/17 09:45 prochlorperazine Allergy Anxiety Verified 10/25/17 09:45 [From Compazine] prochlorperazine edisylate Allergy Anxiety Verified 10/25/17 09:45 [From Compazine] prochlorperazine maleate Allergy Anxiety Verified 10/25/17 09:45 [From Compazine] ketorolac [From Toradol] AdvReac Bleeding Verified 10/25/17 09:45 NSAIDS (Non-Steroidal AdvReac Bleeding Verified 10/25/17 09:45 Anti-Inflamma Home Meds: Home Meds ALPRAZolam [Xanax] 0.5 mg PO QID PRN 10/02/13 [History] Omeprazole [Prilosec] 20 mg PO BID 10/02/13 [History] levETIRAcetam [Keppra] 750 mg PO BID 10/02/13 [History] Estradiol 1 mg PO DAILY 08/18/15 [History] Linaclotide [Linzess] 290 mcg PO DAILY PRN 11/24/15 [History] SUMAtriptan [Imitrex] 1 tab PO ASDIRECTED PRN 04/23/16 [History] Zolpidem Tartrate [Ambien] 5 mg PO BEDTIME PRN 10/15/16 [History] Ranitidine HCl [Acid Control] 1 tab PO DAILY 01/06/17 [History] Propranolol [Inderal] 20 mg PO DAILY 01/18/17 [History] Promethazine [Phenergan] 25 mg PO Q6H #30 tablet 03/25/17 [Rx] Mupirocin Oint [Bactroban Oint] 22 gm NASBOTH BID 07/22/17 [History] Cholecalciferol (Vitamin D3) [Vitamin D] 5,000 unit PO MOTH 10/25/17 [History] Lidocaine 5% 35.44 gm TOP QID PRN #1 tube 10/25/17 [Rx] Sertraline HCl 50 mg PO DAILY 10/25/17 [History] valACYclovir HCl [Valtrex] 500 mg PO BID 5 Days #10 tablet 10/25/17 [Rx] Past Medical History HEENT History: Reports: Allergic Rhinitis Cardiovascular History: Reports: None Respiratory History: Reports: Asthma Gastrointestinal History: Reports: Chronic Constipation, Inflammatory Bowel Disease, Other (See Below) Other Gastrointestinal History: COLITIS Genitourinary History: Reports: Renal Calculus 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: 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 Musculoskeletal History: Reports: Fibromyalgia, RA Neurological History: Reports: Migraines, Seizure Psychiatric History: Reports: Anxiety, Depression Endocrine/Metabolic History: Reports: Obesity/BMI 30+ Hematologic History: Reports: None Immunologic History: Reports: None Oncologic (Cancer) History: Reports: None Dermatologic History: Reports: None - Infectious Disease History Infectious Disease History: Reports: MRSA - Past Surgical History HEENT Surgical History: Reports: Other (See Below) GI Surgical History: Reports: Other (See Below) Other GI Surgeries/Procedures: bowel resection due to blockage ON 02-13-17 Musculoskeletal Surgical History: Reports: Joint Replacement Social & Family History - Family History Family Medical History: Noncontributory Cardiac: Reports: Hypertension Respiratory: Reports: None GI: Reports: Inflammatory Bowel Disease, Irritable Bowel Syndrome : Reports: None OBGYN: Reports: None Musculoskeletal: Reports: Fibromyalgia Neurological: Reports: None Psychiatric: Reports: Depression Endocrine/Metabolic: Reports: Obesity/MBI 30+ Hematologic: Reports: None Immunologic: Reports: None Dermatologic: Reports: None Oncologic: Reports: None - Tobacco Use Smoking Status *Q: Former Smoker Years of Tobacco use: 15 Packs/Tins Daily: 1 Used Tobacco, but Quit: Yes Month Tobacco Last Used: 6 YEARS AGO Second Hand Smoke Exposure: No - Caffeine Use Caffeine Use: Reports: None - Alcohol Use Days Per Week of Alcohol Use: 0 - Recreational Drug Use Recreational Drug Use: No Recreational Drug Type: Reports: Dilaudid Recreational Drug Use Frequency: Binges - Living Situation & Occupation Living situation: Reports: , with Family Occupation: Unemployed ED ROS GENERAL - Review of Systems Review Of Systems: ROS reveals no pertinent complaints other than HPI. ED EXAM, SKIN/RASH Exam: See Below Exam Limited By: No Limitations General Appearance: Alert, WD/WN, No Apparent Distress Head: Atraumatic, Normocephalic Neck: Normal Inspection, Supple, Non-Tender, Full Range of Motion Respiratory/Chest: No Respiratory Distress, Lungs Clear, Normal Breath Sounds, No Accessory Muscle Use, Chest Non-Tender Cardiovascular: Normal Peripheral Pulses, Regular Rate, Rhythm, No Edema, No Gallop, No JVD, No Murmur, No Rub GI/Abdominal: Normal Bowel Sounds, Soft, Non-Tender, No Organomegaly, No Distention, No Abnormal Bruit, No Mass Extremities: Normal Inspection, Normal Range of Motion, Non-Tender, No Pedal Edema, Normal Capillary Refill Neurological: Alert, Oriented, CN II-XII Intact, Normal Cognition, Normal Gait, Normal Reflexes, No Motor/Sensory Deficits Psychiatric: Normal Affect, Normal Mood Skin: Rash (small area of red raised bumps, barely visible on left anterior neck ) Location, Skin: Neck Lymphatic: No Adenopathy Course - Vital Signs Last Recorded V/S: Last Vital Signs Temp 97.0 F 10/25/17 09:38 Pulse 81 10/25/17 09:38 Resp 16 10/25/17 09:38 BP 155/108 H 10/25/17 09:38 Pulse Ox 96 10/25/17 09:38 Departure - Departure Time of Disposition: 10:17 Disposition: Home, Self-Care 01 Condition: Good Clinical Impression: Genital herpes Qualifiers: Herpes simplex infection site: vulvovaginitis Qualified Code(s): A60.04 - Herpesviral vulvovaginitis Contact dermatitis Qualifiers: Contact dermatitis type: unspecified - Discharge Information Prescriptions: Lidocaine 5% 35.44 gm TOP QID PRN #1 tube PRN Reason: Pain valACYclovir HCl [Valtrex] 500 mg PO BID 5 Days #10 tablet Instructions: Contact Dermatitis, [id number], Genital Herpes Referrals: Sally Garcia NP [Primary Care Provider] - Forms: ED Department Discharge Additional Instructions: Valtrex twice daily x 5 days Lidocaine gel to affected areas as needed for pain Avoid sexual intercourse until sores resolve Hydrocortisone cream to rash on neck Benadryl as needed for itching Follow up as scheduled with OBGYN
== END 2017-10-25 10:30 | disposition home or self-care (01) ==
LOC: CC.ED 09:35
DX: A60.04 Herpesviral vulvovaginitis (principal); L25.9 Unspecified contact dermatitis, unspecified cause; F32.9 Major depressive disorder, single episode, unspecified; E66.9 Obesity, unspecified; Z87.891 Personal history of nicotine dependence; Z88.8 Allergy status to other drugs, medicaments and biological substances; Z88.6 Allergy status to analgesic agent; Z79.899 Other long term (current) drug therapy
CPT/HCPCS: 99282; 99283

== ENCOUNTER 2017-11-16 11:29 | Emergency (ER) | payer BC, MEDICARE ==
[2017-11-16] MEDS ORDERED: traMADol 50 MG Tab PO ONE (11:30)
[2017-11-16 11:33] VITALS: BP 134/80
[2017-11-16] MEDS ORDERED: Ketorolac 60 MG/2 ML SDV IM ONE (11:50)
--- NOTE | 2017-11-16 12:22 | EDM.PDOC ---
ED HPI GENERAL MEDICAL PROBLEM - General Chief Complaint: Upper Extremity Injury/Pain Stated Complaint: shoulder pain Time Seen by Provider: 11/16/17 11:44 Source of Information: Reports: Patient History Limitations: Reports: No Limitations - History of Present Illness INITIAL COMMENTS - FREE TEXT/NARRATIVE: Patient presents today with right shoulder pain. States she fell while scooping up garbage outside. States unsure if landed on it or had an outstretched hand. Was seen in ER in [place] yesterday, had an xray which was negative. She was advised to ice and use tylenol. States "the pain is absolutely horrible". States has limited range of motion as movement increases the pain. 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 Right Shoulder Pain Score (Numeric/FACES): 9 - Related Data Allergies Allergy/AdvReac Type Severity Reaction Status Date / Time ceftriaxone sodium Allergy Severe Difficulty Verified 11/16/17 11:33 [From Rocephin] Breathing milnacipran HCl Allergy Intermediate Hallucinati Verified 11/16/17 11:33 [From Savella] ons ondansetron HCl [From Zofran] Allergy Mild Hives Verified 11/16/17 11:33 acetaminophen Allergy Vomiting Verified 11/16/17 11:33 [From Excedrin Sinus Headache] calcium carbonate [From DHEA] Allergy Anxiety Verified 11/16/17 11:33 calcium phosphate,dibasic Allergy Anxiety Verified 11/16/17 11:33 [From DHEA] metoclopramide HCl Allergy Anxiety Verified 11/16/17 11:33 [From Reglan] phenylephrine HCl Allergy Vomiting Verified 11/16/17 11:33 [From Excedrin Sinus Headache] prasterone (DHEA) [From DHEA] Allergy Anxiety Verified 11/16/17 11:33 prednisone Allergy Other Verified 11/16/17 11:33 prochlorperazine Allergy Anxiety Verified 11/16/17 11:33 [From Compazine] prochlorperazine edisylate Allergy Anxiety Verified 11/16/17 11:33 [From Compazine] prochlorperazine maleate Allergy Anxiety Verified 11/16/17 11:33 [From Compazine] ketorolac [From Toradol] AdvReac Bleeding Verified 11/16/17 11:33 NSAIDS (Non-Steroidal AdvReac Bleeding Verified 11/16/17 11:33 Anti-Inflamma Home Meds: Home Meds ALPRAZolam [Xanax] 0.5 mg PO QID PRN 10/02/13 [History] Omeprazole [Prilosec] 20 mg PO BID 10/02/13 [History] levETIRAcetam [Keppra] 750 mg PO BID 10/02/13 [History] Estradiol 1 mg PO DAILY 08/18/15 [History] SUMAtriptan [Imitrex] 1 tab PO ASDIRECTED PRN 04/23/16 [History] Zolpidem Tartrate [Ambien] 5 mg PO BEDTIME PRN 10/15/16 [History] Ranitidine HCl [Acid Control] 1 tab PO DAILY 01/06/17 [History] Propranolol [Inderal] 20 mg PO DAILY 01/18/17 [History] Promethazine [Phenergan] 25 mg PO Q6H #30 tablet 03/25/17 [Rx] Cholecalciferol (Vitamin D3) [Vitamin D] 5,000 unit PO MOTH 10/25/17 [History] Sertraline HCl 100 mg PO DAILY 10/25/17 [History] Acetaminophen [Tylenol] 650 mg PO Q4H PRN 11/16/17 [History] Doxycycline [Vibramycin] 50 mg PO BID 11/16/17 [History] Past Medical History HEENT History: Reports: Allergic Rhinitis Cardiovascular History: Reports: None Respiratory History: Reports: Asthma Gastrointestinal History: Reports: Chronic Constipation, Inflammatory Bowel Disease, Other (See Below) Other Gastrointestinal History: COLITIS Genitourinary History: Reports: Renal Calculus [employer]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 Musculoskeletal History: Reports: Fibromyalgia, RA Neurological History: Reports: Migraines, Seizure Psychiatric History: Reports: Anxiety, Depression Endocrine/Metabolic History: Reports: Obesity/BMI 30+ Hematologic History: Reports: None Immunologic History: Reports: None Oncologic (Cancer) History: Reports: None Dermatologic History: Reports: None - Infectious Disease History Infectious Disease History: Reports: MRSA - Past Surgical History HEENT Surgical History: Reports: Other (See Below) GI Surgical History: Reports: Other (See Below) Other GI Surgeries/Procedures: bowel resection due to blockage ON 5-11-17 Musculoskeletal Surgical History: Reports: Joint Replacement Social & Family History - Family History Family Medical History: Noncontributory Cardiac: Reports: Hypertension Respiratory: Reports: None GI: Reports: Inflammatory Bowel Disease, Irritable Bowel Syndrome : Reports: None OBGYN: Reports: None Musculoskeletal: Reports: Fibromyalgia Neurological: Reports: None Psychiatric: Reports: Depression Endocrine/Metabolic: Reports: Obesity/MBI 30+ Hematologic: Reports: None Immunologic: Reports: None Dermatologic: Reports: None Oncologic: Reports: None - Tobacco Use Smoking Status *Q: Never Smoker Years of Tobacco use: 15 Packs/Tins Daily: 1 Used Tobacco, but Quit: Yes Month Tobacco Last Used: 6 YEARS AGO Second Hand Smoke Exposure: No - Caffeine Use Caffeine Use: Reports: None - Alcohol Use Days Per Week of Alcohol Use: 0 - Recreational Drug Use Recreational Drug Use: No Recreational Drug Type: Reports: Dilaudid Recreational Drug Use Frequency: Binges - Living Situation & Occupation Living situation: Reports: , with Family Occupation: Unemployed Review of Systems - Review of Systems Review Of Systems: See Below Constitutional: Reports: No Symptoms Eyes: Reports: No Symptoms Ears: Reports: No Symptoms Nose: Reports: No Symptoms Mouth/Throat: Reports: No Symptoms Respiratory: Reports: No Symptoms Cardiovascular: Reports: No Symptoms Musculoskeletal: Reports: Shoulder Pain Skin: Denies: Bruising Neurological: Reports: No Symptoms ED EXAM, GENERAL - Physical Exam Exam: See Below Exam Limited By: No Limitations General Appearance: Alert, WD/WN, Mild Distress Neck: Normal Inspection, Full Range of Motion Respiratory/Chest: No Respiratory Distress, Lungs Clear, Normal Breath Sounds Cardiovascular: Regular Rate, Rhythm Extremities: Limited Range of Motion (patient does not allow full examination of shoulder due to pain. Is very tender to entire shoulder/scapular/trapezius area. ) Neurological: Alert, Oriented Skin Exam: Warm, Dry Course - Vital Signs Last Recorded V/S: Last Vital Signs Temp 96.8 F 11/16/17 11:29 Pulse 102 H 11/16/17 11:29 Resp 18 11/16/17 11:29 BP 134/80 11/16/17 11:29 Pulse Ox 98 11/16/17 11:29 - Orders/Labs/Meds Meds: Medications Discontinued Medications Generic Name Dose Route Start Last Admin Trade Name Freq PRN Reason Stop Dose Admin Ketorolac Tromethamine 60 mg 11/16/17 11:50 11/16/17 11:56 Toradol IM 11/16/17 11:51 60 mg ONETIME ONE Administration Orphenadrine Citrate 60 mg 11/16/17 11:50 11/16/17 11:56 Norflex IM 11/16/17 11:51 60 mg NOW STA Administration Tramadol HCl 1 packet 11/16/17 12:26 Take Home: Tramadol 50 Mg, 4 Tab Pack PO 11/16/17 12:27 ONETIME ONE Departure - Departure Time of Disposition: 12:23 Disposition: Home, Self-Care 01 Condition: Fair Clinical Impression: Sprain of shoulder Qualifiers: Encounter type: initial encounter Laterality: right - Discharge Information Referrals: PCP,None [Primary Care Provider] - Forms: ED Department Discharge Additional Instructions: 1. Rest 2. Heat to right shoulder 3. Tramadol 50 mg every 6 hours as needed for pain. 4. Contact primary care provider or Dr. Ocampo tomorrow for further instruction
[2017-11-16] MEDS ORDERED: Take Home: traMADol 50 MG, 4 Tab Pack PO ONE (12:26)
== END 2017-11-16 12:45 | disposition home or self-care (01) ==
LOC: CC.ED 11:29
DX: S43.401A Unspecified sprain of right shoulder joint, initial encounter (principal); E66.9 Obesity, unspecified; F32.9 Major depressive disorder, single episode, unspecified; Z88.8 Allergy status to other drugs, medicaments and biological substances; Z88.6 Allergy status to analgesic agent; Z88.5 Allergy status to narcotic agent; Z79.899 Other long term (current) drug therapy; W19.XXXA Unspecified fall, initial encounter; Y93.89 Activity, other specified; Y92.9 Unspecified place or not applicable; Z87.891 Personal history of nicotine dependence
CPT/HCPCS: 96372; 99283; A9270-GY; J1885; J2360

== ENCOUNTER 2017-11-19 20:10 | Emergency (ER) | payer MEDICARE ==
[2017-11-19] MEDS ORDERED: Promethazine 25 MG Supp RECTAL ONE (20:11)
[2017-11-19 20:14] VITALS: BP 162/130
[2017-11-19] MEDS: Lactated Ringers 1,000 ML IV SCH (20:35)
[2017-11-19] MEDS: Promethazine 25 MG in Sodium Chloride 0.9% 50 ML IV ONE (20:36)
--- NOTE | 2017-11-19 20:43 | EDM.PDOC ---
ED HPI GENERAL MEDICAL PROBLEM - General Chief Complaint: Gastrointestinal Problem Stated Complaint: N/V Time Seen by Provider: 11/19/17 20:30 Source of Information: Reports: Patient History Limitations: Reports: No Limitations - History of Present Illness INITIAL COMMENTS - FREE TEXT/NARRATIVE: Patient presents today with a 2 day history of nausea and vomiting. No one else in the household has been ill. No diarrhea. No fevers. Has been clammy, chills. Has not tried her phenergan at home as she "ran out". Questions if it is from the tramadol she has been taking for her shoulder pain. No cough. Has not been able to tolerate any type of food or drink. Onset: Gradual Duration: Day(s): Location: Reports: Abdomen Severity: Moderate Worsens with: Reports: Eating Abdomen Pain Score (Numeric/FACES): 5 - Related Data Allergies Allergy/AdvReac Type Severity Reaction Status Date / Time ceftriaxone sodium Allergy Severe Difficulty Verified 11/19/17 20:14 [From Rocephin] Breathing milnacipran HCl Allergy Intermediate Hallucinati Verified 11/19/17 20:14 [From Savella] ons ondansetron HCl [From Zofran] Allergy Mild Hives Verified 11/19/17 20:14 acetaminophen Allergy Vomiting Verified 11/19/17 20:14 [From Excedrin Sinus Headache] calcium carbonate [From DHEA] Allergy Anxiety Verified 11/19/17 20:14 calcium phosphate,dibasic Allergy Anxiety Verified 11/19/17 20:14 [From DHEA] metoclopramide HCl Allergy Anxiety Verified 11/19/17 20:14 [From Reglan] phenylephrine HCl Allergy Vomiting Verified 11/19/17 20:14 [From Excedrin Sinus Headache] prasterone (DHEA) [From DHEA] Allergy Anxiety Verified 11/19/17 20:14 prednisone Allergy Other Verified 11/19/17 20:14 prochlorperazine Allergy Anxiety Verified 11/19/17 20:14 [From Compazine] prochlorperazine edisylate Allergy Anxiety Verified 11/19/17 20:14 [From Compazine] prochlorperazine maleate Allergy Anxiety Verified 11/19/17 20:14 [From Compazine] ketorolac [From Toradol] AdvReac Bleeding Verified 11/19/17 20:14 NSAIDS (Non-Steroidal AdvReac Bleeding Verified 11/19/17 20:14 Anti-Inflamma Home Meds: Home Meds ALPRAZolam [Xanax] 0.5 mg PO QID PRN 10/02/13 [History] Omeprazole [Prilosec] 20 mg PO BID 10/02/13 [History] levETIRAcetam [Keppra] 750 mg PO BID 10/02/13 [History] Estradiol 1 mg PO DAILY 08/18/15 [History] SUMAtriptan [Imitrex] 1 tab PO ASDIRECTED PRN 04/23/16 [History] Zolpidem Tartrate [Ambien] 5 mg PO BEDTIME PRN 10/15/16 [History] Ranitidine HCl [Acid Control] 1 tab PO DAILY 01/06/17 [History] Propranolol [Inderal] 20 mg PO DAILY 01/18/17 [History] Promethazine [Phenergan] 25 mg PO Q6H #30 tablet 03/25/17 [Rx] Cholecalciferol (Vitamin D3) [Vitamin D] 5,000 unit PO MOTH 10/25/17 [History] Sertraline HCl 100 mg PO DAILY 10/25/17 [History] Acetaminophen [Tylenol] 650 mg PO Q4H PRN 11/16/17 [History] Doxycycline [Vibramycin] 50 mg PO BID 11/16/17 [History] traMADol [Ultram] 50 mg PO Q6H PRN 11/19/17 [History] Past Medical History HEENT History: Reports: Allergic Rhinitis Cardiovascular History: Reports: None Respiratory History: Reports: Asthma Gastrointestinal History: Reports: Chronic Constipation, Inflammatory Bowel Disease, Other (See Below) Other Gastrointestinal History: COLITIS Genitourinary History: Reports: Renal Calculus [employer]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 Musculoskeletal History: Reports: Fibromyalgia, RA Neurological History: Reports: Migraines, Seizure Psychiatric History: Reports: Anxiety, Depression Endocrine/Metabolic History: Reports: Obesity/BMI 30+ Hematologic History: Reports: None Immunologic History: Reports: None Oncologic (Cancer) History: Reports: None Dermatologic History: Reports: None - Infectious Disease History Infectious Disease History: Reports: MRSA - Past Surgical History HEENT Surgical History: Reports: Other (See Below) GI Surgical History: Reports: Other (See Below) Other GI Surgeries/Procedures: bowel resection due to blockage ON 02-13-17 Musculoskeletal Surgical History: Reports: Joint Replacement Social & Family History - Family History Family Medical History: Noncontributory Cardiac: Reports: Hypertension Respiratory: Reports: None GI: Reports: Inflammatory Bowel Disease, Irritable Bowel Syndrome : Reports: None OBGYN: Reports: None Musculoskeletal: Reports: Fibromyalgia Neurological: Reports: None Psychiatric: Reports: Depression Endocrine/Metabolic: Reports: Obesity/MBI 30+ Hematologic: Reports: None Immunologic: Reports: None Dermatologic: Reports: None Oncologic: Reports: None - Tobacco Use Smoking Status *Q: Former Smoker Years of Tobacco use: 15 Packs/Tins Daily: 1 Used Tobacco, but Quit: Yes Month Tobacco Last Used: february 2012 Second Hand Smoke Exposure: No - Caffeine Use Caffeine Use: Reports: None - Alcohol Use Days Per Week of Alcohol Use: 0 - Recreational Drug Use Recreational Drug Use: No Recreational Drug Type: Reports: Dilaudid Recreational Drug Use Frequency: Binges - Living Situation & Occupation Living situation: Reports: , with Family Occupation: Unemployed ED ROS GENERAL - Review of Systems Review Of Systems: See Below Constitutional: Reports: Chills, Malaise. Denies: Fever, Weakness HEENT: Reports: No Symptoms Respiratory: Denies: Shortness of Breath, Cough Cardiovascular: Denies: Chest Pain, Edema, Lightheadedness Endocrine: Reports: Fatigue GI/Abdominal: Reports: Nausea, Vomiting. Denies: Abdominal Pain, Black Stool, Bloody Stool, Diarrhea : Reports: No Symptoms Musculoskeletal: Reports: No Symptoms Skin: Reports: No Symptoms Neurological: Reports: Weakness ED EXAM, GI/ABD - Physical Exam Exam: See Below Exam Limited By: No Limitations General Appearance: Alert, WD/WN, No Apparent Distress Ears: Normal External Exam, Normal TMs Nose: Normal Inspection, Normal Mucosa, No Blood Throat/Mouth: Normal Inspection, Normal Oropharynx Head: Normocephalic Neck: Normal Inspection, Supple, Non-Tender Respiratory/Chest: No Respiratory Distress, Lungs Clear, Normal Breath Sounds Cardiovascular: Regular Rate, Rhythm GI/Abdominal Exam: Normal Bowel Sounds, Soft, Non-Tender Extremities: Normal Inspection, Normal Capillary Refill Neurological: Alert, Oriented Psychiatric: Normal Affect, Normal Mood Skin Exam: Warm, Dry Course - Vital Signs Last Recorded V/S: Last Vital Signs Temp 96.9 F 11/19/17 20:11 Pulse 86 11/19/17 20:11 Resp 20 02/14/18 20:11 BP 162/130 H 11/19/17 20:11 Pulse Ox 96 11/19/17 20:11 - Orders/Labs/Meds Orders: Active Orders 24 hr Category Date Time Status Lactated Ringers [Ringers, Lactated] 1,000 ml Med 11/19/17 20:30 Active IV ASDIRECTED Medication Orders Lactated Ringer's (Ringers, Lactated) 1,000 mls @ 999 mls/hr IV ASDIRECTED ANDREEA Last Admin: 11/19/17 20:35 Dose: 999 mls/hr Meds: Medications Generic Name Dose Route Start Last Admin Trade Name Freq PRN Reason Stop Dose Admin Lactated Ringer's 1,000 mls @ 999 mls/hr 11/19/17 20:30 11/19/17 20:35 Ringers, Lactated IV 999 mls/hr ASDIRECTED ANDREEA Administration Discontinued Medications Generic Name Dose Route Start Last Admin Trade Name Freq PRN Reason Stop Dose Admin Promethazine HCl 25 mg/ Sodium 51 mls @ 100 mls/hr 11/19/17 20:20 11/19/17 20 :36 Chloride IV 11/19/17 20:50 100 mls/hr ONETIME ONE Administration - Re-Assessments/Exams Free Text/Narrative Re-Assessment/Exam: 11/19/17 21:33 Is doing well. Very small emesis on arrival but no vomiting since. States feeling better. Will discharge home after IV fluids infused. Departure - Departure Time of Disposition: 21:34 Disposition: Home, Self-Care 01 Condition: Fair Clinical Impression: Gastroenteritis - Discharge Information Forms: ED Department Discharge Additional Instructions: 1. Push fluids 2. Tylenol or tramadol for discomfort. 3. Phenergan 25 mg every 6 hours as needed for nausea 4. Follow up with your primary care provider for ongoing concerns. - My Orders Last 24 Hours: My Active Orders 11/19/17 20:30 Lactated Ringers [Ringers, Lactated] 1,000 ml IV ASDIRECTED - Assessment/Plan Last 24 Hours: My Active Orders 11/19/17 20:30 Lactated Ringers [Ringers, Lactated] 1,000 ml IV ASDIRECTED
[2017-11-19] MEDS: Take Home: Promethazine 25 MG, 4 Tab Pack PO ONE (22:14)
== END 2017-11-19 22:15 | disposition home or self-care (01) ==
LOC: CC.ED 20:10
DX: K52.9 Noninfective gastroenteritis and colitis, unspecified (principal); E66.9 Obesity, unspecified; Z88.5 Allergy status to narcotic agent; Z79.899 Other long term (current) drug therapy; Z87.891 Personal history of nicotine dependence; Z88.8 Allergy status to other drugs, medicaments and biological substances
CPT/HCPCS: 96365; 96366; 96368; 99282; A9270-GY; J2550; J7050; J7120

== ENCOUNTER 2023-04-05 14:35 | Emergency (ER) | payer BC, MEDICARE ==
[2023-04-05 14:44] VITALS: BP 143/76; PULSE 79
[2023-04-05 15:39] LABS: BASOPHILS ABSOLUTE AUTO 0.06 10^3/uL (0.00-0.50); BASOPHILS PERCENT AUTO 0.5 % (0-1); EOSINOPHILS ABSOLUTE AUTO 0.22 10^3/uL (0.00-1.50); HEMATOCRIT 34.3 % (37.0-47.0); HEMOGLOBIN 11.5 g/dL (12.0-16.0); IMMATURE GRAN ABSOLUTE AUTO 0.07 10^3/uL (0.00-0.49); IMMATURE GRAN PERCENT AUTO 0.6 % (0.0-4.9); LYMPHOCYTES ABSOLUTE AUTO 3.54 10^3/uL (0.60-5.00); LYMPHOCYTES PERCENT AUTO 31.4 % (24-44); MEAN CORPUSCULAR HEMOGLOBIN 30.5 pg (27.0-32.0); MEAN CORPUSCULAR HGB CONC 33.5 g/dL (32.0-36.0); MONOCYTES ABSOLUTE AUTO 0.87 10^3/uL (0.00-1.50); MONOCYTES PERCENT AUTO 7.7 % (0-10); NEUTROPHILS ABSOLUTE AUTO 6.52 x10^3/uL (1.80-8.00); NEUTROPHILS PERCENT AUTO 57.8 % (41-71); PLATELET COUNT,PLT 324 10^3/uL (150-400); RED BLOOD CELL COUNT 3.77 x10^6/uL (4.00-5.50); WHITE BLOOD CELL COUNT,WBC 11.3 10^3/uL (4.0-11.0)
[2023-04-05 15:58] LABS: ALBUMIN 3.1 g/dL (3.4-5.0); BILIRUBIN TOTAL 0.2 mg/dL (0.0-1.0); CALCIUM 8.8 mg/dL (8.4-10.1); CREATININE 0.8 mg/dL (0.6-1.0); EST CRCL DRUG DOSING (CG) 71.91 mL/min; POTASSIUM,K 3.3 mEq/L (3.5-5.0); PROTEIN TOTAL,TP 6.4 g/dL (6.4-8.2)
[2023-04-05 16:03] LABS: APPEARANCE,URINE CLEAR (CLEAR); BILIRUBIN,URINE NEGATIVE (NEGATIVE); COLOR,URINE YELLOW (YELLOW); GLUCOSE,URINE NEGATIVE (NEGATIVE); KETONES,URINE NEGATIVE (NEGATIVE); LEUKOCYTE ESTERASE,URINE NEGATIVE (NEGATIVE); NITRITE,URINE NEGATIVE (NEGATIVE); OCCULT BLOOD,URINE TRACE-INTACT (NEGATIVE); PROTEIN,URINE NEGATIVE (NEGATIVE); UROBILINOGEN,URINE 0.2 EU/dL (0.2-1.0)
[2023-04-05 16:11] LABS: BACTERIA,URINE OCCASIONAL /HPF (NOT SEEN); RBC,URINE 0-5 /HPF (0-5); SQUAMOUS EPITHELIAL CELLS,UR MANY /HPF (NOT SEEN); WBC,URINE NOT SEEN /HPF (0-5); YEAST,URINE FEW /HPF (NOT SEEN)
== END 2023-04-05 17:48 | disposition home or self-care (01) ==
LOC: CC.ED 14:35
DX: K62.5 Hemorrhage of anus and rectum (principal); K64.9 Unspecified hemorrhoids; E66.9 Obesity, unspecified; Z68.30 Body mass index [BMI] 30.0-30.9, adult; Z88.1 Allergy status to other antibiotic agents; Z88.8 Allergy status to other drugs, medicaments and biological substances; Z87.891 Personal history of nicotine dependence
CPT/HCPCS: 36415; 80053; 81001; 81025; 85025; 99284